=== PATIENT | female | born 1970 | race Caucasian/White ===

== ENCOUNTER 2016-12-23 17:42 | Emergency (ER) | payer BC ==
[2016-12-23 18:06] VITALS: BP 140/84
--- NOTE | 2016-12-23 18:31 | UC ---
Cardiac HPI - HPI Summary HPI Summary: Sharp, stabbing pain right mid chest. STarted last night after a stressful night out with her kids. She has also started an exercise program that involves pectoral curls. Took Motrin, then pain seemed worse this AM. Throughout day pain worsened. Hurts with any movement of right arm, hurts to take a deep breath or cough. No fever, no recent cough, no vomiting. No history of similar pain. Had ETT for chest pains and other concerns in August 2016, normal. She admits to being very anxious, just wants to be sure this is nothing to do with her heart. - History of Current Complaint Chief Complaint: UCChestPain Stated Complaint: CHEST DISCOMFORT Time Seen by Provider: 12/23/16 18:11 Hx Obtained From: Patient Onset/Duration: Gradual Onset, Lasting Days - 1 Timing: Constant Initial Severity: Mild Current Severity: Moderate Chest Pain Location: Right Anterior Character: Sharp/Stabbing Aggravating: Position, Movement, Deep Breaths Alleviating: Rest, Position Associated Signs & Symptoms: Positive: Chest Pain, Anxiety, Recent Stress. Negative: Syncope, Fever, Diaphoresis, Nausea/Vomiting, Palpitations, Cough, Hemoptysis, Back Pain - Risk Factors Pulmonary Embolism Risk Factors: Negative Cardiac Risk Factors: Negative Atrial Fibrillation: Negative TAD Risk Factors: Negative - Allergy/Home Medications Allergies/Adverse Reactions: Allergies Allergy/AdvReac Type Severity Reaction Status Date / Time Penicillins Allergy Rash Verified 12/23/16 18:06 Home Medications: Home Medications Ibuprofen TAB* [Advil TAB*] 200 mg PO Q12H PRN 12/23/16 [History Confirmed 12/23] PMH/Surg Hx/FS Hx/Imm Hx Previously Healthy: Yes Cancer History Of: Denies: Breast Cancer - Surgical History Surgical History: None - Family History Known Family History: Positive: Hypertension - Social History Occupation: Employed Full-time Lives: With Family Alcohol Use: None Substance Use Type: None Smoking Status (MU): Never Smoked Tobacco Review of Systems Constitutional: Negative Skin: Negative Eyes: Negative ENT: Negative Respiratory: Other - pleuritic pain Cardiovascular: Chest Pain - right anterior, hard to localize, not chest wall Gastrointestinal: Negative Genitourinary: Negative Motor: Negative Neurovascular: Negative Musculoskeletal: Negative Neurological: Negative Psychological: Negative All Other Systems Reviewed And Are Negative: Yes Physical Exam Triage Information Reviewed: Yes Appearance: Well-Appearing, No Pain Distress, Well-Nourished Vital Signs: Initial Vital Signs Temp 99.8 F 12/23/16 17:59 Pulse 90 12/23/16 17:59 Resp 20 12/23/16 17:59 BP 140/84 12/23/16 17:59 Pulse Ox 100 12/23/16 17:59 Vital Signs Reviewed: Yes Eye Exam: Normal ENT Exam: Normal Neck exam: Normal Neck: Positive: Supple Respiratory: Positive: Chest non-tender, Lungs clear - pain at end expiration, Normal breath sounds, No respiratory distress, No accessory muscle use Cardiovascular Exam: Normal Abdominal Exam: Normal Musculoskeletal Exam: Normal - no surface tenderness. Doesn't want to move shoulder due to pain Neurological Exam: Normal Psychological Exam: Normal Skin Exam: Normal Diagnostics - Laboratory Diagnostic Studies Completed/Ordered: EKG: NSR, unremarkable. CXR neg - Clinical Impression Provider Diagnoses: pleuritis Discharge - Discharge Plan Condition: Stable Disposition: HOME Patient Education Materials: Chest Wall Pain (ED) Referrals: Marci Deluna MD [Primary Care Provider] - Additional Instructions: Motrin, heat, rest. Take the hydrocodone tonight if you need something stronger for the pain
--- NOTE | 2016-12-23 19:01 | RAD ---
INDICATION: Pleuritic chest pain COMPARISON: None TECHNIQUE: PA and lateral dual-energy views were obtained. FINDINGS: Bones/Soft Tissues: There are no acute bony findings. Cardiomediastinal: The cardiomediastinal silhouette is normal. Lungs: There are no infiltrates. There is no pneumothorax. Pleura: There are no pleural effusions. Other: None IMPRESSION: NO ACTIVE DISEASE.
[2016-12-23] MEDS ORDERED: HYDROcodone/ACETAMIN 5-325 MG* 1 TAB PO ONE (19:42)
== END 2016-12-23 19:56 | disposition home or self-care (01) ==
LOC: UCCORT 17:42
DX: R09.1 Pleurisy (principal); Z88.0 Allergy status to penicillin
CPT/HCPCS: 71020; 93005; 99212; G0463

== ENCOUNTER 2017-06-29 09:04 | Emergency (ER) | payer BC ==
[2017-06-29 09:14] VITALS: BP 140/86
--- NOTE | 2017-06-29 09:33 | UC ---
Abdominal Pain Female HPI - HPI Summary HPI Summary: ONSET OF DIFFUSE ABDOMINAL PAIN AND SPASMS YESTERDAY. HAS A H/O DIVERTICULITIS AND HAS BEEN EATING A LOT OF NUTS OVER THE PAST SEVERAL DAYS. HAD SEVERAL EPISODES OF LOOSE STOOL AND SOME NAUSEA. NO EMESIS. NO FEVER. - History of Current Complaint Chief Complaint: UCAbdominalPain Stated Complaint: ABD PAIN Time Seen by Provider: 06/29/17 09:23 Hx Obtained From: Patient Hx Last Menstrual Period: 06/19/17 Onset/Duration: Sudden Onset, Lasting Hours, Still Present Timing: Constant Severity Initially: Moderate Severity Currently: Moderate Pain Intensity: 5 Pain Scale Used: 0-10 Numeric Location: Diffuse Radiates: No Character: Cramping Aggravating Factor(s): Nothing Alleviating Factor(s): Nothing Associated Signs and Symptoms: Positive: Nausea, Diarrhea Allergies/Adverse Reactions: Allergies Allergy/AdvReac Type Severity Reaction Status Date / Time Penicillins Allergy Rash Verified 06/29/17 09:14 PMH/Surg Hx/FS Hx/Imm Hx GI/ History: Diverticulitis - Surgical History Surgical History: None - Family History Known Family History: Positive: Hypertension - Social History Alcohol Use: None Substance Use Type: None Smoking Status (MU): Never Smoked Tobacco Review of Systems Constitutional: Negative Respiratory: Negative Cardiovascular: Negative Gastrointestinal: Abdominal Pain, Diarrhea, Nausea Genitourinary: Negative All Other Systems Reviewed And Are Negative: Yes Physical Exam Triage Information Reviewed: Yes Appearance: Well-Appearing, No Pain Distress, Well-Nourished Vital Signs: Initial Vital Signs Pulse 106 06/29/17 09:09 Resp 16 06/29/17 09:09 BP 140/86 06/29/17 09:09 Pulse Ox 100 06/29/17 09:09 Vital Signs Reviewed: Yes Eyes: Positive: Conjunctiva Clear ENT: Positive: Hearing grossly normal Neck: Positive: Supple Respiratory Exam: Normal Cardiovascular: Positive: Tachycardia Abdomen Description: Positive: Soft, Other: - DIFFUSELY TENDER - MORE SO EPIGASTRIC AND SUPRAPUBIC/LLQ.. Negative: CVA Tenderness (R), CVA Tenderness (L ), Distended, Guarding Bowel Sounds: Positive: Present Musculoskeletal: Positive: No Edema Neurological: Positive: Alert Psychological: Positive: Age Appropriate Behavior Skin: Negative: rashes Abd Pain Female Course/Dx - Course Course Of Treatment: DISCUSSED TRANSFER TO ER GIVEN DX OF DIVERTICULITIS NOT CERTAIN. PT WOULD LIKE TO TRY TX FOR DIVERTICULITIS OUTPT AND WILL GO TO ER IF SX NOT IMPROVING. - Differential Dx/Diagnosis Provider Diagnoses: PRESUMPTIVE DIVERTICULITIS Discharge - Discharge Plan Condition: Stable Disposition: HOME Prescriptions: Ciprofloxacin TAB* [Cipro 500 MG TAB*] 500 mg PO BID #20 tab Metronidazole [Flagyl 500 MG TAB] 500 mg PO TID #30 tab Patient Education Materials: Diverticulitis (ED), Diverticulitis Diet (ED) Referrals: Marci Deluna MD [Primary Care Provider] - If Needed Additional Instructions: WE ARE TREATING YOU FOR PRESUMPTIVE DIVERTICULITIS. IF YOU ARE NOT FEELING IMPROVED OVER THE NEXT DAY OR 2 GO TO THE ER FOR FURTHER EVALUATION. YOUR BLOOD PRESSURE WAS ELEVATED TODAY. THIS MAY BE DUE TO YOUR ACUTE CONDITION. MONITOR AND FOLLOW-UP WITH YOUR PCP WITHIN 4 WEEKS IF IT HAS NOT RETURNED TO NORMAL.
== END 2017-06-29 09:55 | disposition home or self-care (01) ==
LOC: UCEAST 09:04
DX: R10.84 Generalized abdominal pain (principal); R11.0 Nausea; R19.7 Diarrhea, unspecified; K57.92 Diverticulitis of intestine, part unspecified, without perforation or abscess without bleeding; Z88.0 Allergy status to penicillin
CPT/HCPCS: 99212; G0463

== ENCOUNTER 2017-12-06 13:27 | Emergency (ER) | payer BC ==
--- NOTE | 2017-12-06 13:57 | UC ---
Abdominal Pain Female HPI - HPI Summary HPI Summary: 47 year old female presents with severe right upper quadrant and chest pain. - History of Current Complaint Chief Complaint: UCAbdominalPain Stated Complaint: ABD PAIN Time Seen by Provider: 12/06/17 13:56 Hx Obtained From: Patient Hx Last Menstrual Period: 06/19/17 Onset/Duration: Sudden Onset Severity Initially: Moderate Severity Currently: Moderate Pain Scale Used: 0-10 Numeric - 5 Location: Discrete At: RUQ Character: Aching, Sharp Aggravating Factor(s): Movement Alleviating Factor(s): Nothing Allergies/Adverse Reactions: Allergies Allergy/AdvReac Type Severity Reaction Status Date / Time Penicillins Allergy Rash Verified 12/06/17 13:57 Home Medications: Home Medications NK [No Home Medications Reported] 12/06/17 [History Confirmed 12/06/17] PMH/Surg Hx/FS Hx/Imm Hx Previously Healthy: Yes - Surgical History Surgical History: None - Family History Known Family History: Positive: Hypertension - Social History Alcohol Use: None Substance Use Type: None Smoking Status (MU): Never Smoked Tobacco Review of Systems Constitutional: Negative Skin: Negative Eyes: Negative ENT: Negative Respiratory: Negative Cardiovascular: Negative Gastrointestinal: Abdominal Pain Genitourinary: Negative Motor: Negative Neurovascular: Negative Musculoskeletal: Negative Neurological: Negative Psychological: Negative All Other Systems Reviewed And Are Negative: Yes Physical Exam Triage Information Reviewed: Yes Vital Signs Reviewed: Yes Eye Exam: Normal ENT Exam: Normal Dental Exam: Normal Neck exam: Normal Neck: Positive: 1 Respiratory Exam: Normal Cardiovascular Exam: Normal Abdomen Description: Positive: Other: - ruq pain Musculoskeletal Exam: Normal Neurological Exam: Normal Psychological Exam: Normal Skin Exam: Normal Abd Pain Female Course/Dx - Differential Dx/Diagnosis Provider Diagnoses: ruq pain. chest pain. epigastric pain Discharge - Discharge Plan Condition: Stable Disposition: OTHER Discharge Disposition Comment: patient suggested to go to the er Patient Education Materials: Chest Pain (ED) Referrals: Marci Deluna MD [Primary Care Provider] - Additional Instructions: patient suggested to go to the er.
[2017-12-06 14:29] VITALS: BP 154/101
== END 2017-12-06 14:30 ==
LOC: UCCORT 13:27
DX: R10.11 Right upper quadrant pain (principal); R07.89 Other chest pain; R10.13 Epigastric pain; Z88.0 Allergy status to penicillin
CPT/HCPCS: 93005; 99212; G0463

== ENCOUNTER 2017-12-06 16:02 | Emergency (ER) | payer BC ==
[2017-12-06 18:56] LABS: ABS Basophils 0 10^3/ul (0-0.2); ABS Eosinophils 0 10^3/ul (0-0.6); ABS Lymphocytes 0.7 10^3/ul (1.0-4.8); ABS Monocytes 0.4 10^3/ul (0-0.8); ABS Neutrophils 10.5 10^3/ul (1.5-7.7); ABS Nucleated RBC 0 10^3/ul; Eosinophil % 0.3 % (0-6); Hematocrit 46 % (35-47); Hemoglobin 15.3 g/dl (12.0-16.0); Lymphocyte % 5.7 % (25-47); Mean Corpuscular HGB Conc 34 g/dl (31-36); Mean Corpuscular Hemoglobin 29 pg (27-31); Mean Corpuscular Volume 87 fL (80-97); Mean Platelet Volume 8 um3 (7.4-10.4); Nucleated Red Blood Cells % 0; Platelet Count 190 10^3/ul (150-450); Red Blood Count 5.22 10^6/ul (4.0-5.4); Red Cell Distribution Width 14 % (10.5-15); White Blood Count 11.6 10^3/ul (3.5-10.8)
[2017-12-06 19:08] LABS: EGFR Non-African American 72.7 (>60)
[2017-12-06 19:16] LABS: Urine Appearance Cloudy; Urine Blood 2+ (Negative); Urine Color Yellow; Urine Ketones Negative (Negative); Urine Protein Negative (Negative); Urine Specific Gravity 1.027 (1.010-1.030); Urine Urobilinogen Negative (Negative)
--- NOTE | 2017-12-06 19:28 | RAD ---
HISTORY: Lower abdominal pain COMPARISONS: January 28, 2012 TECHNIQUE: Multiple transverse and longitudinal ultrasound images were obtained of the pelvis using grayscale, color Doppler, and spectral Doppler imaging using the endovaginal transducer. FINDINGS: UTERUS: The uterus measures 10.7 x 5.6 x 6.9 cm. The uterus is normal in shape, size, contour, and echotexture. ENDOMETRIUM: The endometrial stripe is smooth. The endometrium measures 1.3 cm in thickness. CUL-DE-SAC: There is no free fluid within the cul-de-sac. RIGHT OVARY: The right ovary measures 6.9 x 2.7 x 2.9 cm. There are multiple simple cysts measuring up to 3.5 cm in size. Normal arterial and venous waveforms are identifiable within the ovary on spectral Doppler imaging. LEFT OVARY: The left ovary measures 2.9 x 2.9 x 2.1 cm. Several small follicles are noted. An involuting follicular cyst is noted. Normal arterial and venous waveforms are identifiable within the ovary on spectral Doppler imaging. BLADDER: The bladder is not well visualized. OTHER: None IMPRESSION: 1. OVARIAN CYSTS. 2. THE ENDOMETRIAL STRIPE MEASURES 1.3 CM IN THICKNESS. 3. NO SONOGRAPHIC FEATURES OF TORSION. PLEASE NOTE THAT PARTIAL OR INTERMITTENT TORSION MAY BE SONOGRAPHICALLY NORMAL.
--- NOTE | 2017-12-06 19:56 | ED ---
Maia Green Gabriel, scribed for Tomi Reyes MD on 12/06/17 at 1748 . HPI Chest Pain - HPI Summary HPI Summary: This patient is a 47 year old F presenting to [facility] accompanied by her sister in law with a chief complaint of suprapubic pain since 10/29/17. The patient rates the pain 6/10 in severity and radiating into her back and up into her chest. Patient reports CP, anxiety, ABD bloating, and vomiting. Patient denies dysuria, vaginal bleeding, vaginal discharge, and nausea. She was seen at PCP several weeks ago and they sent her to [facility], both saw a small amount blood in her urine. She has a vaginal US on 12/23/17 but states no knowing what is wrong with her is making her anxious. LNMP was on 11/19/17 and before that is was 11/03/17. - History of Current Complaint Chief Complaint: EDGeneral Hx Obtained From: Patient Hx Last Menstrual Period: 06/19/17 Onset/Duration: Still Present Timing: Constant Initial Severity: Moderate Current Severity: Moderate Pain Intensity: 6 Pain Scale Used: 0-10 Numeric Chest Pain Location: Diffuse Chest Pain Radiates: Yes Chest Pain Radiates To:: Back, Other - ABD Associated Signs and Symptoms: Positive: Negative - dysuria, vaginal bleeding, vaginal discharge, and nausea, Other: - CP, anxiety, ABD bloating, and vomiting - Allergy/Home Medications Allergies/Adverse Reactions: Allergies Allergy/AdvReac Type Severity Reaction Status Date / Time Penicillins Allergy Rash Verified 12/06/17 13:57 PMH/Surg Hx/FS Hx/Imm Hx Endocrine/Hematology History: Denies: Hx Diabetes Cardiovascular History: Denies: Hx Congestive Heart Failure, Hx Deep Vein Thrombosis, Hx Hypertension , Hx Myocardial Infarction, Hx Pacemaker/ICD GI History: Reports: Hx Diverticulosis Psychiatric History: Reports: Hx Anxiety - Surgical History Surgery Procedure, Year, and Place: April 2017 Colonoscopy Infectious Disease History: No Infectious Disease History: Denies: Traveled Outside the [place] in Last 30 Days - Family History Known Family History: Positive: Cardiac Disease, Hypertension - Social History Occupation: Employed Full-time Alcohol Use: Occasionally Hx Substance Use: No Substance Use Type: Reports: None Hx Tobacco Use: No Smoking Status (MU): Never Smoked Tobacco Review of Systems Positive: Chest Pain Positive: Abdominal Pain, Vomiting, Other - ABD bloating . Negative: Nausea Genitourinary: Negative - vaginal bleeding/ discharge Negative: dysuria Positive: Anxious All Other Systems Reviewed And Are Negative: Yes Physical Exam - Summary Physical Exam Summary: Appearance: Well-appearing, Well-nourished, slightly anxious appearing Skin: Warm, dry Eyes: Normal, EOMI, PERRL ENT: moist mucuous membranes Neck: Supple, nontender Respiratory: diminished breath sounds b/l Cardiovascular: normal s1s2 few ectopic beats, no murmurs appreciated Abdomen: Soft, nontender, no giuliano or guarding Musculoskeletal: Normal, Strength/ROM Intact Neurological: Normal, A&Ox3, cranial nerves 2-12 intact Vital Signs On Initial Exam: Initial Vitals Temp Pulse Resp BP Pulse Ox 99.3 F 133 18 167/116 96 12/06/17 16:12 12/06/17 16:12 12/06/17 16:12 12/06/17 16:12 12/06/17 16:12 Diagnostics - Vital Signs Vital Signs Temp Pulse Resp BP Pulse Ox 12/06/17 16:12 99.3 F 133 18 167/116 96 - Laboratory Lab Results: Lab Results 12/06/17 12/06/17 12/06/17 Range/Units 18:33 18:40 18:40 WBC 11.6 H (3.5-10.8) 10^3/ul RBC 5.22 (4.0-5.4) 10^6/ul Hgb 15.3 (12.0-16.0) g/dl Hct 46 (35-47) % MCV 87 (80-97) fL MCH 29 (27-31) pg MCHC 34 (31-36) g/dl RDW 14 (10.5-15) % Plt Count 190 (150-450) 10^3/ul MPV 8 (7.4-10.4) um3 Neut % (Auto) 90.7 H (38-83) % Lymph % (Auto) 5.7 L (25-47) % Ashley % (Auto) 3.2 (1-9) % Eos % (Auto) 0.3 (0-6) % Baso % (Auto) 0.1 (0-2) % Absolute Neuts (auto) 10.5 H (1.5-7.7) 10^3/ul Absolute Lymphs (auto) 0.7 L (1.0-4.8) 10^3/ul Absolute Monos (auto) 0.4 (0-0.8) 10^3/ul Absolute Eos (auto) 0 (0-0.6) 10^3/ul Absolute Basos (auto) 0 (0-0.2) 10^3/ul Absolute Nucleated RBC 0 10^3/ul Nucleated RBC % 0 Sodium 133 (133-145) mmol/L Potassium 3.8 (3.5-5.0) mmol/L Chloride 102 (101-111) mmol/L Carbon Dioxide 25 (22-32) mmol/L Anion Gap 6 (2-11) mmol/L BUN 16 (6-24) mg/dL Creatinine 0.84 (0.51-0.95) mg/dL Est GFR ( Amer) 93.5 (>60) Est GFR (Non-Af Amer) 72.7 (>60) BUN/Creatinine Ratio 19.0 (8-20) Glucose 105 H (70-100) mg/dL Lactic Acid (0.5-2.0) mmol/L Calcium 8.9 (8.6-10.3) mg/dL Magnesium 1.9 (1.9-2.7) mg/dL Total Bilirubin 0.80 (0.2-1.0) mg/dL AST 15 (13-39) U/L ALT 17 (7-52) U/L Alkaline Phosphatase 89 (34-104) U/L Troponin I 0.00 (<0.04) ng/mL Total Protein 7.4 (6.4-8.9) g/dL Albumin 3.9 (3.2-5.2) g/dL Globulin 3.5 (2-4) g/dL Albumin/Globulin Ratio 1.1 (1-3) Lipase < 10 L (11.0-82.0) U/L Beta HCG, Quant < 0.60 mIU/mL Urine Color Yellow Urine Appearance Cloudy Urine pH 5.0 (5-9) Ur Specific [place] 1.027 (1.010-1.030) Urine Protein Negative (Negative) Urine Ketones Negative (Negative) Urine Blood 2+ H (Negative) Urine Nitrate Negative (Negative) Urine Bilirubin Negative (Negative) Urine Urobilinogen Negative (Negative) Ur Leukocyte Esterase 2+ H (Negative) Urine WBC (Auto) Trace(0-5/hpf) (Absent) Urine RBC (Auto) 1+(3-5/hpf) H (Absent) Ur Squamous Epith Cells Present H (Absent) Urine Bacteria 1+ H (Absent) Urine Glucose Negative (Negative) 12/06/17 Range/Units 18:40 WBC (3.5-10.8) 10^3/ul RBC (4.0-5.4) 10^6/ul Hgb (12.0-16.0) g/dl Hct (35-47) % MCV (80-97) fL MCH (27-31) pg MCHC (31-36) g/dl RDW (10.5-15) % Plt Count (150-450) 10^3/ul MPV (7.4-10.4) um3 Neut % (Auto) (38-83) % Lymph % (Auto) (25-47) % Ashley % (Auto) (1-9) % Eos % (Auto) (0-6) % Baso % (Auto) (0-2) % Absolute Neuts (auto) (1.5-7.7) 10^3/ul Absolute Lymphs (auto) (1.0-4.8) 10^3/ul Absolute Monos (auto) (0-0.8) 10^3/ul Absolute Eos (auto) (0-0.6) 10^3/ul Absolute Basos (auto) (0-0.2) 10^3/ul Absolute Nucleated RBC 10^3/ul Nucleated RBC % Sodium (133-145) mmol/L Potassium (3.5-5.0) mmol/L Chloride (101-111) mmol/L Carbon Dioxide (22-32) mmol/L Anion Gap (2-11) mmol/L BUN (6-24) mg/dL Creatinine (0.51-0.95) mg/dL Est GFR ( Amer) (>60) Est GFR (Non-Af Amer) (>60) BUN/Creatinine Ratio (8-20) Glucose (70-100) mg/dL Lactic Acid 0.9 (0.5-2.0) mmol/L Calcium (8.6-10.3) mg/dL Magnesium (1.9-2.7) mg/dL Total Bilirubin (0.2-1.0) mg/dL AST (13-39) U/L ALT (7-52) U/L Alkaline Phosphatase (34-104) U/L Troponin I (<0.04) ng/mL Total Protein (6.4-8.9) g/dL Albumin (3.2-5.2) g/dL Globulin (2-4) g/dL Albumin/Globulin Ratio (1-3) Lipase (11.0-82.0) U/L Beta HCG, Quant mIU/mL Urine Color Urine Appearance Urine pH (5-9) Ur Specific [place] (1.010-1.030) Urine Protein (Negative) Urine Ketones (Negative) Urine Blood (Negative) Urine Nitrate (Negative) Urine Bilirubin (Negative) Urine Urobilinogen (Negative) Ur Leukocyte Esterase (Negative) Urine WBC (Auto) (Absent) Urine RBC (Auto) (Absent) Ur Squamous Epith Cells (Absent) Urine Bacteria (Absent) Urine Glucose (Negative) Result Diagrams: 12/06/17 18:40 12/06/17 18:40 Lab Statement: Any lab studies that have been ordered have been reviewed, and results considered in the medical decision making process. Chest Pain Course/Dx - Course Assessment/Plan: Pt says she does not requre any pain medications at this time. Atypical crampy lower abdominal pain with negative ultrasound exam. Denies any dysuria, pending abdominal ct. - Diagnoses Provider Diagnoses: Abdominal pain Discharge - Discharge Plan Condition: Improved Disposition: OTHER Discharge Disposition Comment: pt care signed out to PM attending Dr. Teixeira Patient Education Materials: Abdominal Pain (ED) Referrals: Marci Deluna MD [Primary Care Provider] - Evelia Ramirez MD [Medical Doctor] - Additional Instructions: PLEASE MAKE AN APPOINTMENT FIRST THING IN THE MORNING TO BE SEEN BY A INDUSTRIAL SERVICE TECHNICIAN WITHIN 1-2 WEEKS PLEASE RETURN IMMEDIATELY TO THE ER IF YOU HAVE ANY WORSENING OR CONCERNING SYMPTOMS PLEASE MAKE AN APPOINTMENT TO BE SEEN BY YOUR PRIMARY CARE DOCTOR WITHIN 1 WEEK The documentation as recorded by the Maia dee Gabriel accurately reflects the service I personally performed and the decisions made by me, Tomi Reyes MD.
[2017-12-06] MEDS ORDERED: Iohexol 300* (CONTRAST) 10 ML SDV IV ONE (20:34)
--- NOTE | 2017-12-06 21:26 | RAD ---
CLINICAL HISTORY: Lower abdominal pain COMPARISON: March 04, 2012 TECHNIQUE: Multiple contiguous axial CT scans were obtained of the abdomen and pelvis after the administration of intravenous contrast. Coronal and sagittal multiplanar reformations are submitted for review. Oral contrast was administered. Delayed images were obtained through the abdomen and pelvis. FINDINGS: LUNG BASES: The lung bases are clear. LIVER: The liver is normal in shape, size, contour, and attenuation. BILE DUCTS: There is no intrahepatic or extrahepatic biliary dilatation. GALLBLADDER: Multiple gallstones are noted. There is no pericholecystic inflammatory change. PANCREAS: The pancreas is normal, without mass or ductal dilatation. SPLEEN: Normal in size and appearance. UPPER GI TRACT: Evaluation of the gastrointestinal tract is limited by incomplete gastric distention. The upper GI tract is unremarkable. SMALL BOWEL AND MESENTERY: The small bowel is normal in contour, course, and caliber. There is no obstruction or dilatation. COLON: There is scattered diverticula of the distal colon without pericolonic inflammatory change. There is a tubular, vermiform, hollow viscus that is blind ending, and originates from the cecum, consistent with a normal appendix. There is no periappendiceal inflammatory change. This is best seen on axial image 60. ADRENALS: Normal bilaterally. KIDNEYS: The kidneys are normal in shape, size, contour, and axis. There is no hydronephrosis or nephrolithiasis. BLADDER: The bladder is smooth in contour. PELVIC ORGANS: There are simple cysts of the right ovary measuring up to 2.7 cm in size. The pelvic organs are otherwise unremarkable. AORTA: The aorta is normal. IVC: Unremarkable LYMPH NODES: There is no lymphadenopathy by size criteria. ABDOMINAL WALL: There is no evidence for abdominal wall hernia. BONES AND SOFT TISSUES: Unremarkable OTHER: None IMPRESSION: 1. CHOLELITHIASIS. 2. SCATTERED DIVERTICULA OF THE DISTAL COLON WITHOUT PERICOLONIC INFLAMMATORY CHANGE. 3. SIMPLE RIGHT OVARIAN CYSTS.
--- NOTE | 2017-12-06 22:30 | ED ---
Nitesh Green Natalie, tseringibed for Emiliano Teixeira MD on 12/06/17 at 2142 . Progress - Results/Orders Results/Orders: Transvaginal US: 1. Ovarian cysts. 2. The endometrial stripe measures 1.3 cm in thickness. 3. No sonographic features of torsion. Please note that partial or intermittent torsion. May be sonographically normal. ED physician has reviewed this report. CT Abdomen/Pelvis: 1. Cholelithiasis. 2. Scattered diverticula of the distal colon without pericolonic inflammatory change. 3. Simple right ovarian cysts. ED physician has reviewed this report. Course/Dx - Course Course Of Treatment: DISCUSSED RESULTS WITH PATIENT. F/U PMD, UROLOGY AND GI; RETURN IF WORSE. - Diagnoses Provider Diagnoses: Abdominal pain, Hematuria The documentation as recorded by the Nitehs dee Natalie accurately reflects the service I personally performed and the decisions made by , Emiliano Teixeira MD.
[2017-12-06 22:32] VITALS: BP 133/79
== END 2017-12-06 22:31 | disposition home or self-care (01) ==
LOC: ED 16:02
DX: R10.9 Unspecified abdominal pain (principal); R31.9 Hematuria, unspecified
CPT/HCPCS: 36415; 74177; 76830; 80053; 81003; 81015; 83605; 83690; 83735; 84484; 84702; 85025; 87086; 93005; 99282; Q9967

== ENCOUNTER 2018-01-05 07:35 | Emergency (ER) | payer BC ==
[2018-01-05 08:34] VITALS: BP 126/77
--- NOTE | 2018-01-05 08:49 | UC ---
Respiratory Complaint HPI - HPI Summary HPI Summary: Congestion, cough, loss of voice for a few days. No fever. No myalgias. - History of Current Complaint Chief Complaint: UCRespiratory Stated Complaint: COUGH Time Seen by Provider: 01/05/18 08:14 Hx Obtained From: Patient Hx Last Menstrual Period: 12/17/17 Onset/Duration: Gradual Onset, Lasting Days Timing: Constant Severity Initially: Moderate Severity Currently: Moderate Pain Intensity: 0 Character: Cough: Productive Aggravating Factors: Deep Breaths, Recumbent Position Alleviating Factors: Upright Position, Spontaneous Resolution Associated Signs And Symptoms: Positive: URI, Nasal Congestion, Hoarseness. Negative: Dyspnea, Fever, Chills, Pleuritic Chest Pain, Hemoptysis, Dizziness, Calf Pain, Calf Swelling, Edema, Sinus Discomfort - Allergies/Home Medications Allergies/Adverse Reactions: Allergies Allergy/AdvReac Type Severity Reaction Status Date / Time Penicillins Allergy Rash Verified 01/05/18 08:27 PMH/Surg Hx/FS Hx/Imm Hx Previously Healthy: Yes - Surgical History Surgical History: None Surgery Procedure, Year, and Place: April 2017 Colonoscopy - Family History Known Family History: Positive: Cardiac Disease, Hypertension - Social History Alcohol Use: Occasionally Substance Use Type: None Smoking Status (MU): Never Smoked Tobacco - Immunization History Most Recent Influenza Vaccination: 2017 Review of Systems ENT: Sinus Congestion Respiratory: Cough All Other Systems Reviewed And Are Negative: Yes Physical Exam Triage Information Reviewed: Yes Appearance: Well-Appearing, No Pain Distress, Well-Nourished Vital Signs: Initial Vital Signs Temp 98.7 F 01/05/18 08:28 Pulse 84 01/05/18 08:28 Resp 18 01/05/18 08:28 BP 126/77 01/05/18 08:28 Pulse Ox 99 01/05/18 08:28 Vital Signs Reviewed: Yes Eyes: Positive: Conjunctiva Clear ENT: Positive: Pharynx normal, Pharyngeal erythema, Nasal congestion, TMs normal , Hoarse voice, Uvula midline. Negative: Nasal drainage, Tonsillar swelling, Tonsillar exudate, Trismus, Muffled voice, Sinus tenderness Neck: Positive: Supple, Nontender, No Lymphadenopathy Respiratory: Positive: Lungs clear, Normal breath sounds, No respiratory distress, No accessory muscle use. Negative: Respiratory distress, Decreased breath sounds, Accessory muscle use, Crackles, Rhonchi, Stridor, Wheezing Cardiovascular: Positive: No Murmur Abdomen Description: Positive: No Organomegaly, Soft. Negative: Distended, Guarding Musculoskeletal: Positive: Strength Intact, ROM Intact, No Edema Neurological: Positive: Alert, Muscle Tone Normal. Negative: Fatigued Psychological: Positive: Age Appropriate Behavior Skin: Negative: rashes UC Diagnostic Evaluation - Laboratory O2 Sat by Pulse Oximetry: 99 Respiratory Course/Dx - Course Course Of Treatment: Viral uri. Supportive care described in detail. - Differential Dx/Diagnosis Provider Diagnoses: uri Discharge - Discharge Plan Condition: Good Disposition: HOME Patient Education Materials: Upper Respiratory Infection (ED) Referrals: Marci Deluna MD [Primary Care Provider] -
== END 2018-01-05 09:25 | disposition home or self-care (01) ==
LOC: UCCORT 07:35
DX: J06.9 Acute upper respiratory infection, unspecified (principal); Z88.0 Allergy status to penicillin
CPT/HCPCS: 99211; G0463

== ENCOUNTER 2018-02-08 19:29 | Emergency (ER) | payer BC ==
[2018-02-08 20:21] VITALS: BP 132/84
[2018-02-08] MEDS ORDERED: Ibuprofen TAB* 600 MG PO ONE (20:39)
--- NOTE | 2018-02-08 20:44 | UC ---
Neck Pain HPI - HPI Summary HPI Summary: Pt presents with left lateral, upper neck pain. Pt states 3 weeks ago was walking outside and slipped and his posterior left shoulder and neck. No LOC. No blood HEENT. Pt states continues to feel pain and tightness in muscle and wanted to get check for concussion. No olivas, vision changes. No muscle weakness, paresthesia. Pt has taken Motrin intermittently with relief. Pt states feels better with gentle rubbing and shower. No nausea or difficulty with balance Pt's medications reviewed this visit - History of Current Complaint Chief Complaint: UCHeadInjury Stated Complaint: NECK/BACK PAIN/INJURY Time Seen by Provider: 02/08/18 20:22 Hx Obtained From: Patient Hx Last Menstrual Period: 01/19/18 Onset/Duration Of Injury/Symptoms: Weeks Mechanism Of Injury: Blunt Trauma Timing: Constant Onset/Duration: Lasting Weeks Severity: Mild Pain Intensity: 6 Pain Scale Used: 0-10 Numeric Location: Discrete At: - left posterior upper shoulder Character: Aching, Spasmotic Alleviating Factors: Position, Heat, OTC Meds Associated Signs & Symptoms: Positive: Negative - Allergies/Home Medications Allergies/Adverse Reactions: Allergies Allergy/AdvReac Type Severity Reaction Status Date / Time Penicillins Allergy Rash Verified 02/08/18 20:17 PMH/Surg Hx/FS Hx/Imm Hx Previously Healthy: Yes - Surgical History Surgical History: None Surgery Procedure, Year, and Place: April 2017 Colonoscopy - Family History Known Family History: Positive: Cardiac Disease, Hypertension - Social History Occupation: Employed Full-time Lives: With Family Alcohol Use: Occasionally Substance Use Type: None Smoking Status (MU): Never Smoked Tobacco - Immunization History Most Recent Influenza Vaccination: 2016 Review Of Systems Constitutional: Positive: Negative Skin: Positive: Negative Musculoskeletal: Positive: Other: Neurological: Positive: Negative All Other Systems Reviewed And Are Negative: Yes Physical Exam Triage Information Reviewed: Yes Appearance: Well-Appearing, No Pain Distress, Well-Nourished Vital Signs: Initial Vital Signs Temp 98.1 F 02/08/18 20:15 Pulse 92 02/08/18 20:15 Resp 16 02/08/18 20:15 BP 132/84 02/08/18 20:15 Pulse Ox 100 02/08/18 20:15 Vital Signs Reviewed: Yes Eye Exam: Normal Eyes: Positive: Conjunctiva Clear ENT Exam: Normal ENT: Positive: Normal ENT inspection, Hearing grossly normal, Pharynx normal Dental Exam: Normal Neck exam: Normal Neck: Positive: Supple. Negative: Nontender - see MS Respiratory Exam: Normal Respiratory: Positive: Chest non-tender, Lungs clear, Normal breath sounds, No respiratory distress Cardiovascular Exam: Normal Cardiovascular: Positive: RRR, No Murmur Musculoskeletal: Positive: Other: - No pain c/t/l/s No crepitus + TTP left paraspinal, trapezius discomfort with direct palp + flex/ext neck with mild discomfort left side neck + lateral rotation, shouler/ear b/l with mild stretching left trapezius full AROM upper ext against resistance Neurological: Positive: Other: - + thumb up, a ok, finger spread, finger cross + g ross sensation throughout Psychological Exam: Normal Skin Exam: Normal Diagnostics - Radiology No standard instances Radiology Interpretation Completed By: Radiologist - IMPRESSION: 1. STRAIGHTENING OF THE CERVICAL SPINE, NO EVIDENCE FOR FRACTURE OR SUBLUXATION. 2. MILD TO MODERATE CERVICAL SPONDYLOSIS. <Electronically signed by Angel Pierson MD in [place]> [id number] Dictated By: Angel Pierson MD Dictated Date/Time: 02/08/182111 Transcribed Date/Time: 02/08/182109 Copy to: Re-Evaluation - Re-Evaluation First Eval Change: Unchanged - reviewed imaging with pt motrin/apap heat stretch pt has massage tomorrow -recommend before and after treatement pt comfotable and in agreement with plan Neck Pain Course/Dx - Course Course Of Treatment: Pt with left sided neck pain s/p fall 3 weeks ago. No LOC. Pt with discomfort and palpable spasm left trapezius. suspect all muscular no concerning finding son exam. will check plain film. motrin/apap. heat. stretch - Differential Dx/Diagnosis Provider Diagnoses: left cervical strain Discharge - Discharge Plan Condition: Stable Disposition: HOME Patient Education Materials: Muscle Strain (ED) Referrals: Marci Deluna MD [Primary Care Provider] - Additional Instructions: - alternate ibuprofen (Advil, Motrin) 600mg and Tylenol 1000mg every 3 hours for pain. Take with food. Do NOT take for more than 4-5 days - apply heat to your sore muscle. Once your muscle is warm, slow gentle stretching exercises are important. You should repeat this 2-3 times a day - gentle massage is okay for muscle tightness - As discussed, the doctor that evaluated you is not concerned you have suffered a concussion. If you develop uncontrolled headaches, vision changes, dizziness, vomiting or balance difficulty you should be re-evaluated. This is extremely unlikely given the mechanism of you injury and the duration from your injury - Contact your doctor or return with any questions or concerns
--- NOTE | 2018-02-08 21:16 | RAD ---
INDICATION: Left paraspinal neck pain status post injury. COMPARISON: There are no prior studies available for comparison. TECHNIQUE: 3 views of the cervical spine were obtained including lateral, AP and open-mouth odontoid views. FINDINGS: There is straightening of the cervical spine with loss of the normal cervical lordosis. No prevertebral soft tissue swelling or fracture is seen. There is mild to moderate disc space narrowing and uncinate process spurring present at the C4-C5, C5-C6 and C6-C7 levels. IMPRESSION: 1. STRAIGHTENING OF THE CERVICAL SPINE, NO EVIDENCE FOR FRACTURE OR SUBLUXATION. 2. MILD TO MODERATE CERVICAL SPONDYLOSIS.
== END 2018-02-08 21:24 | disposition home or self-care (01) ==
LOC: UCCORT 19:29
DX: S16.1XXA Strain of muscle, fascia and tendon at neck level, initial encounter (principal); W00.0XXA Fall on same level due to ice and snow, initial encounter; Y93.01 Activity, walking, marching and hiking; Y92.9 Unspecified place or not applicable; M47.812 Spondylosis without myelopathy or radiculopathy, cervical region; Z88.0 Allergy status to penicillin
CPT/HCPCS: 72040; 99212; A9270-GY; G0463

== ENCOUNTER 2018-06-27 16:10 | Emergency (ER) | payer BC ==
--- OUTSIDE RECORDS SUMMARY | 2018-06-27 16:49 | XMS REPORT ---
:1970 External Reference #:[id number] Author Organization [facility] Address [address] [place] [address] Phone [phone] Care Team Providers Name Role Phone Marci Deluna MD Primary Care Physician Unavailable Payers Type Date Identification Numbers Payment Provider Subscriber Commercial Effective: Policy Number: BS Chilango Nahomi 2014 [id number] ColeRadhaJalen PayID: [id number] [address] [address] [place] [address] Medigap Part B Effective: Policy Number: BS Chilango Varma 2011 [id number] Expires: 2012 PayID: [id number] [address] [address] [place] [address] Problems Date Description Provider Status Onset: 04/26/2012 FH: Cardiovascular disease Swetha Mtz M.D. 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 2018 x 2 weeks Omeprazole 10/08/ Hx Capsules DR 20mg 30cap 1 by mouth K21.9 Dominick 2016 - s once daily Kyle, [employer]AR[employer] EDUC[employer] TE[employer]ER 2017 No Active 05/09/ Hx Unknown Medications 2014 - 2016 Tamiflu 01/11/ Hx Capsules 75mg 10cap 1 tab by Marci 2014 - s mouth once Cotton, 01/22/ daily for M.D. 2014 10 days No Active 01/27/ Hx Unknown Medications 2012 - 2012 Doxycycline 01/27/ Hx Tablets DR 100mg 14tab 100 mg 461.1 Namita Hyclate 2012 - s orally Charanjit, 02/03/ twice daily N.P. 2012 x 7 days Nasal Saline 01/27/ Hx Solution 0.65% 1ml 2 sprays in 461.1 Namita 2012 - each Charanjit, 01/02/ nostril 5 N.P. 2014 times a day Nasonex 01/27/ Hx Suspension 50mcg/Act 17g 2 sprays in 461.1 Namita 2012 - each Charanjit, 01/02/ nostril N.P. 2014 once daily Tessalon 01/27/ Hx Capsules 100mg 60cap 1 tab po 461.1 Namita Mariano 2012 - s tid prn Charanjit, 01/02/ N.P. 2014 Ibuprofen 01/27/ Hx Tablets 400mg 100ta 400 mg po 462 Namita 2013 - bs q4-6h; max Charanjit, 05/09/ 2400 mg/day N.P. 2014 Zithromax 10/27/ Hx Tablets 250mg 1Pack as per Timmy Gunderson-Leo 2012 - directions Nancy, 01/27/ M.D. 2012 Codeine 10/27/ Hx Liquid 300-10mg/ 4oz 10cc q 4 Timmy Scott/Guai 2012 - 5ML hrs prn Nancy marysein 01/27/ cough M.D. 2012 Lexapro 08/08/ Hx Tablets 10mg 60tab 1 tablet 300.00 Swetha 2011 - s daily for 1 Mtz, 10/27/ week, then M.D. 2011 2 tablets daily Citracal / Hx Tablets 315-250mg 2 tablet Unknown Maximum 0000 - -Unit daily 2012 Align / Hx 4mg po qd Unknown Probiotic 0000 - 2012 Probiotic / Hx Capsules 30cap once a day Unknown Acidophilus 0000 - s prn 2014 Immunizations CPT Code Status Date Vaccine Lot # [id number] Given 08/26/2016 Flu Vaccine NOS [id number] Given 09/06/2013 Flu Vaccine Split Virus Preservative Free For [id number] Indiv [id number] Older [id number] Given 04/26/2012 Tdap - Tetanus/Diptheria/Acellular Pertussis [id number] Vital Signs Date Vital Result Comment 06/08/2018 Height 66 inches 5'6" Weight 255.00 lb Heart Rate 98 /min BP Systolic 126 mmHg BP Diastolic 80 mmHg Body Temperature 97.8 F O2 % BldC Oximetry 97 % BMI (Body Mass Index) 41.2 kg/m2 04/22/2018 Weight 254.00 lb Heart Rate 82 /min BP Systolic Sitting 138 mmHg BP Diastolic Sitting 86 mmHg O2 % BldC Oximetry 97 % 02/28/2018 Weight 262.50 lb Heart Rate 103 /min BP Systolic Standing 142 mmHg BP Diastolic Standing 82 mmHg Body Temperature 99.1 F O2 % BldC Oximetry 97 % 02/18/2018 Weight 253.00 lb Heart Rate 105 /min BP Systolic Sitting 138 mmHg BP Diastolic Sitting 88 mmHg Pain Level 4 O2 % BldC Oximetry 97 % 01/06/2018 Weight 252.00 lb Heart Rate 87 /min BP Systolic Sitting 148 mmHg BP Diastolic Sitting 90 mmHg Body Temperature 98.9 F O2 % BldC Oximetry 98 % 11/16/2017 Height 66 inches 5'6" Weight 252.00 lb Heart Rate 78 /min BP Systolic 124 mmHg BP Diastolic 74 mmHg O2 % BldC Oximetry 98 % BMI (Body Mass Index) 40.7 kg/m2 10/08/2017 Heart Rate 76 /min BP Systolic Sitting 122 mmHg BP Diastolic Sitting 86 mmHg Body Temperature 97.5 F O2 % BldC Oximetry 98 % 09/06/2017 Height 66 inches 5'6" Weight 252.00 lb Heart Rate 90 /min BP Systolic 120 mmHg BP Diastolic 72 mmHg Body Temperature 98.3 F O2 % BldC Oximetry 98 % BMI (Body Mass Index) 40.7 kg/m2 06/29/2017 Weight 254.00 lb Heart Rate 109 /min BP Systolic 130 mmHg BP Diastolic 76 mmHg Body Temperature 100.0 F O2 % BldC Oximetry 98 % 01/19/2017 Weight 254.00 lb with shoes Heart Rate 88 /min BP Systolic 124 mmHg BP Diastolic 80 mmHg Body Temperature 97.6 F O2 % BldC Oximetry 99 % 11/26/2016 Weight 251.00 lb Heart Rate 87 /min BP Systolic Sitting 126 mmHg L arm BP Diastolic Sitting 86 mmHg L arm 07/27/2016 Weight 258.00 lb with shies Heart Rate 83 /min BP Systolic Sitting 122 mmHg BP Diastolic Sitting 90 mmHg Body Temperature 97.2 F O2 % BldC Oximetry 98 % Ra 03/26/2016 Height 66 inches 5'6" Weight 253.00 lb Heart Rate 88 /min BP Systolic Sitting 130 mmHg BP Diastolic Sitting 84 mmHg Respiratory Rate 15 /min Body Temperature 98.5 F O2 % BldC Oximetry 98 % BMI (Body Mass Index) 40.8 kg/m2 02/21/2016 Height 66 inches 5'6" Weight 248.00 lb Heart Rate 76 /min BP Systolic Sitting 124 mmHg BP Diastolic Sitting 76 mmHg Body Temperature 98.2 F O2 % BldC Oximetry 98 % BMI (Body Mass Index) 40.0 kg/m2 07/22/2015 Height 66 inches 5'6" Weight 245.25 lb Heart Rate 83 /min BP Systolic Sitting 138 mmHg BP Diastolic Sitting 70 mmHg Body Temperature 98.2 F O2 % BldC Oximetry 98 % BMI (Body Mass Index) 39.6 kg/m2 05/09/2015 Height 66 inches 5'6" Weight 236.00 lb Heart Rate 85 /min BP Systolic 112 mmHg BP Diastolic 73 mmHg Body Temperature 98.8 F BMI (Body Mass Index) 38.1 kg/m2 05/02/2014 Height 66 inches 5'6" Weight 227.00 lb Heart Rate 97 /min BP Systolic Sitting 110 mmHg BP Diastolic Sitting 76 mmHg Body Temperature 99.0 F BMI (Body Mass Index) 36.6 kg/m2 01/02/2014 Weight 230.75 lb Heart Rate 82 /min BP Systolic Sitting 130 mmHg BP Diastolic Sitting 80 mmHg Body Temperature 98.1 F O2 % BldC Oximetry 98 % 09/06/2013 Weight 231.00 lb Heart Rate 82 /min BP Systolic Sitting 124 mmHg BP Diastolic Sitting 76 mmHg 06/28/2013 Weight 223.00 lb Heart Rate 80 /min BP Systolic Sitting 138 mmHg BP Diastolic Sitting 76 mmHg 04/21/2013 Weight 219.00 lb Heart Rate 82 /min BP Systolic Sitting 130 mmHg BP Diastolic Sitting 80 mmHg 03/29/2013 Weight 216.00 lb Heart Rate 84 /min BP Systolic Sitting 126 mmHg BP Diastolic Sitting 82 mmHg Body Temperature 97.8 F 01/27/2013 Height 65.75 inches 5'5.75" Weight 222.00 lb Heart Rate 86 /min BP Systolic Sitting 146 mmHg BP Diastolic Sitting 80 mmHg Body Temperature 98.9 F O2 % BldC Oximetry 97 % BMI (Body Mass Index) 36.1 kg/m2 10/27/2012 Height 65.75 inches 5'5.75" Weight 219.00 lb Heart Rate 85 /min BP Systolic Sitting 126 mmHg BP Diastolic Sitting 100 mmHg O2 % BldC Oximetry 99 % BMI (Body Mass Index) 35.6 kg/m2 08/26/2012 Height 65.75 inches 5'5.75" Weight 222.00 lb Heart Rate 78 /min BP Systolic Sitting 124 mmHg BP Diastolic Sitting 74 mmHg BMI (Body Mass Index) 36.1 kg/m2 08/08/2012 Height 65.75 inches 5'5.75" Weight 221.50 lb Heart Rate 80 /min BP Systolic Sitting 138 mmHg BP Diastolic Sitting 80 mmHg BMI (Body Mass Index) 36.0 kg/m2 07/29/2012 Height 65.75 inches 5'5.75" Weight 219.00 lb Heart Rate 74 /min BP Systolic Sitting 124 mmHg BP Diastolic Sitting 72 mmHg Body Temperature 98.6 F BMI (Body Mass Index) 35.6 kg/m2 07/15/2012 Height 65.75 inches 5'5.75" Weight 221.00 lb Heart Rate 76 /min BP Systolic Sitting 124 mmHg BP Diastolic Sitting 76 mmHg BMI (Body Mass Index) 35.9 kg/m2 04/26/2012 Height 65.75 inches 5'5.75" Weight 211.00 lb Heart Rate 76 /min BP Systolic Sitting 124 mmHg BP Diastolic Sitting 72 mmHg BMI (Body Mass Index) 34.3 kg/m2 Results Test Date Test Result H/L Range Note Urine Culture And 12/06/2017 Urine Culture SEE RESULT BELOW 1 Sensitivities Urinalysis Profile 12/06/2017 Urine Color Yellow Urine Appearance Cloudy Urine Specific [place] 1.027 1.010-1.030 Urine pH 5.0 5-9 Urine Urobilinogen Negative Negative Urine Ketones Negative Negative Urine Protein Negative Negative Urine Leukocytes 2+ Negative Urine Blood 2+ Negative Urine Nitrite Negative Negative Urine Bilirubin Negative Negative Urine Glucose Negative Negative Urine White Blood Cell Trace(0-5/hpf) Absent Urine Red Blood Cell 1+(3-5/hpf) Absent Urine Bacteria 1+ Absent Urine Squamous Epithelial Cell Present Absent CBC Auto Diff 12/06/2017 White Blood Count 11.6 10^3/uL High 3.5-10.8 Red Blood Count 5.22 10^6/uL 4.0-5.4 Hemoglobin 15.3 g/dL 12.0-16.0 Hematocrit 46 % 35-47 Mean Corpuscular Volume 87 fL 80-97 Mean Corpuscular Hemoglobin 29 pg 27-31 Mean Corpuscular HGB Conc 34 g/dL 31-36 Red Cell Distribution Width 14 % 10.5-15 Platelet Count 190 10^3/uL 150-450 Mean Platelet Volume 8 um3 7.4-10.4 Abs Neutrophils 10.5 10^3/uL High 1.5-7.7 Abs Lymphocytes 0.7 10^3/uL Low 1.0-4.8 Abs Monocytes 0.4 10^3/uL 0-0.8 Abs Eosinophils 0 10^3/uL 0-0.6 Abs Basophils 0 10^3/uL 0-0.2 Abs Nucleated RBC 0 10^3/uL Granulocyte % 90.7 % High 38-83 Lymphocyte % 5.7 % Low 25-47 Monocyte % 3.2 % 1-9 Eosinophil % 0.3 % 0-6 Basophil % 0.1 % 0-2 Nucleated Red Blood Cells % 0 Laboratory test finding 12/06/2017 Lactic Acid 0.9 mmol/L 0.5-2.0 2 Comp Metabolic Panel 12/06/2017 Sodium 133 mmol/L 133-145 Potassium 3.8 mmol/L 3.5-5.0 Chloride 102 mmol/L 101-111 Co2 Carbon Dioxide 25 mmol/L 22-32 Anion Gap 6 mmol/L 2-11 Glucose 105 mg/dL High 70-100 Blood Urea Nitrogen 16 mg/dL 6-24 Creatinine 0.84 mg/dL 0.51-0.95 BUN/Creatinine Ratio 19.0 8-20 Calcium 8.9 mg/dL 8.6-10.3 Total Protein 7.4 g/dL 6.4-8.9 Albumin 3.9 g/dL 3.2-5.2 Globulin 3.5 g/dL 2-4 Albumin/Globulin Ratio 1.1 1-3 Total Bilirubin 0.80 mg/dL 0.2-1.0 Alkaline Phosphatase 89 U/L 34-104 Alt 17 U/L 7-52 Ast 15 U/L 13-39 Egfr Non- 72.7 >60 Egfr 93.5 >60 3 Laboratory test finding 12/06/2017 Magnesium 1.9 mg/dL 1.9-2.7 Lipase < 10 U/L Low 11.0-82.0 Troponin-I (TnI) 0.00 ng/mL <0.04 HCG < 0.60 mIU/mL 4 Urine Culture And 11/25/2017 Urine Culture SEE RESULT BELOW 5 Sensitivities Urine Culture And 11/16/2017 Urine Culture SEE RESULT BELOW 6 Sensitivities Ua Routine 11/16/2017 Ua Specific [place] 1.025 Ua PH 5 Ua Color yellow Ua Appera clear Ua WBC + Ua Protein TRACE Ua Glucose NORM Ua Ketones NEG Ua Bilirubin NEG Ua Urobilinogen NEG Ua Nitrite NEG Ua Occult Blood MOD Laboratory test finding 10/20/2017 TSH (Thyroid Stim Horm) 1.48 mcIU/mL 0.34-5.60 7 Basic Metabolic Panel 10/20/2017 Sodium 135 mmol/L 133-145 Potassium 4.1 mmol/L 3.5-5.0 Chloride 107 mmol/L 101-111 Co2 Carbon Dioxide 23 mmol/L 22-32 Anion Gap 5 mmol/L 2-11 Glucose 102 mg/dL High 70-100 Blood Urea Nitrogen 16 mg/dL 6-24 Creatinine 0.74 mg/dL 0.51-0.95 BUN/Creatinine Ratio 21.6 High 8-20 Calcium 9.8 mg/dL 8.6-10.3 Egfr Non- 84.5 >60 Egfr 108.7 >60 8 CBC Auto Diff 10/20/2017 White Blood Count 6.0 10^3/uL 3.5-10.8 Red Blood Count 5.02 10^6/uL 4.0-5.4 Hemoglobin 14.7 g/dL 12.0-16.0 Hematocrit 43 % 35-47 Mean Corpuscular Volume 86 fL 80-97 Mean Corpuscular Hemoglobin 29 pg 27-31 Mean Corpuscular HGB Conc 34 g/dL 31-36 Red Cell Distribution Width 14 % 10.5-15 Platelet Count 203 10^3/uL 150-450 Mean Platelet Volume 9 um3 7.4-10.4 Abs Neutrophils 3.9 10^3/uL 1.5-7.7 Abs Lymphocytes 1.6 10^3/uL 1.0-4.8 Abs Monocytes 0.4 10^3/uL 0-0.8 Abs Eosinophils 0.1 10^3/uL 0-0.6 Abs Basophils 0 10^3/uL 0-0.2 Abs Nucleated RBC 0 10^3/uL Granulocyte % 64.3 % 38-83 Lymphocyte % 27.3 % 25-47 Monocyte % 6.0 % 1-9 Eosinophil % 1.8 % 0-6 Basophil % 0.6 % 0-2 Nucleated Red Blood Cells % 0 Lipid Profile (Trig/Chol/HDL) 10/20/2017 Triglycerides 73 mg/dL 9 Cholesterol 193 mg/dL 10 HDL Cholesterol 47.6 mg/dL 11 LDL Cholesterol 131 mg/dL 12 Laboratory test 09/17/2017 Glucose 110 mg/dL High 70-100 finding Laboratory test 05/04/2017 Surgical Interface SEE RESULT 13, 14 finding Order BELOW Urine Culture And 01/19/2017 Urine Culture SEE RESULT 15 Sensitivities BELOW Ua Routine 01/19/2017 Ua Specific 1.015 [place] Ua PH 7 Ua Color ida Ua Appera cloudy Ua WBC + Ua Protein 30+ Ua Glucose neg Ua Ketones neg Ua Bilirubin + Ua Urobilinogen 1 Ua Nitrite neg Ua Occult Blood large Lipid Profile (Trig/Chol/HDL) 03/17/2016 Triglycerides 78 mg/dL 16 Cholesterol 171 mg/dL 17 HDL Cholesterol 40.9 mg/dL 18 LDL Cholesterol 115 mg/dL 19 Laboratory test finding 03/17/2016 Glucose 99 mg/dL 70-100 20 Lipid Profile (Trig/Chol/HDL) 04/26/2015 Triglycerides 81 mg/dL 21 Cholesterol 185 mg/dL 22 HDL Cholesterol 46.6 mg/dL 23 LDL Cholesterol 122 mg/dL 24 Hepatitis B [place] AB 05/07/2014 Hepatitis B Surface AB Nonreactive Nonreactive 25 Titer Hep B Surf AB Index 0.70 25, 26 Laboratory test finding 05/07/2014 Glucose 87 mg/dL 70-100 25, 27 TSH (Thyroid Stimulating Horm) 2.05 IU/mL 0.34-5.60 25, 28 Lipid Profile (Trig/Chol/HDL) 05/07/2014 Triglycerides 72 mg/dL 25, 29 Cholesterol 160 mg/dL 25, 30 HDL Cholesterol 47.1 mg/dL 25, 31 LDL Cholesterol 99 mg/dL 25, 32 Laboratory test finding 05/07/2014 Hepatitis A Antibody Negative Negative 25, 33 Total Laboratory test finding 06/29/2013 Lyme Disease Serology Negative Negative 34 Laboratory test finding 01/27/2013 Throat Culture (SEE NOTE) 35 Laboratory test finding 01/27/2013 Rapid Strep A negative Comp Metabolic Panel 04/28/2012 Sodium 136 mmol/L 135-145 Potassium 3.8 mmol/L 3.5-5.0 Chloride 106 mmol/L 101-111 Co2 (Carbon Dioxide) 26.0 mmol/L 22-32 Anion Gap 4.0 mmol/L 2-11 36 Glucose 99 mg/dL 70-100 BUN 11 mg/dL 6-24 Creatinine 0.8 mg/dL 0.50-1.40 One Over Creatinine 1.25 BUN/Creatinine Ratio 13.8 8-20 Calcium 8.9 mg/dL 8.1-9.9 Total Protein 6.3 GM/DL 6.2-8.1 Albumin 3.7 GM/DL 3.6-5.4 Globulin 2.6 GM/DL 2-4 Albumin/Globulin Ratio 1.4 1-3 Bilirubin Total 0.8 mg/dL 0.4-1.5 37 Alkaline Phosphatase 66 U/L 30-110 Alt (SGPT) 17 U/L 14-54 Ast (Sgot) 13 U/L 12-42 eGFR Non- 79.0 > 60 eGFR 101.7 > 60 38 Lipid Profile (Trig/Chol/HDL) 04/28/2012 Triglyceride 62 mg/dL 40-200 Cholesterol 168 mg/dL Less Than 200 39 High Density Lipoprotein 51 mg/dL 40-60 40 Cholesterol/HDL Ratio 3.29 AVERAGE 1-4.44 Low Density Lipoprotein 105 mg/dL High Less Than 100 41 Laboratory test finding 04/28/2012 CPK (Creatine Kinase) 77 U/L 0-170 Thyroxine Free 0.64 ng/dL 0.61-1.24 TSH 1.65 MIU/ML 0.34-5.60 Hepatitis C Antibody Nonreactive Nonreactive Vad 04/28/2012 Vad Final Nonreactive Nonreactive 42 1 SEE RESULT BELOW Name: NAHOMI DÍAZ : [address]: Tomi Reyes MD Acct: [id number] Unit: [id number] AGE: 47 Location: ED Re12/06/17 SEX: F Status: DEP ER SPEC: [id number] DUC: 12/06/17 [facility] DR: Tomi Reyes MD REQ: [id number] RECD: 12/06/17 STATUS: ISHMAEL BENITEZ DR: Marci Deluna MD _ S[facility] ORDERED: Urine Culture Procedure Result Reported Site Urine Culture Final 12/08/17- 0807 ML No growth of clinically significant organisms * ML - MAIN LAB ([facility]) . END OF REPORT * ML=Testing performed at Main Lab DEPARTMENT OF PATHOLOGY, [address] [place] [address] Zachary Hammond M.D. Director [facility] # [id number] 2 [facility] Severe Sepsis and Septic Shock Management Bundle Measure requires all lactic acids initially measuring >2.0 mmol/L be repeated. 3 Because ethnic data is not always readily available, this report includes an eGFR for both -Americans and non- Americans. The National Kidney Disease Education Program (NKDEP) does not endorse the use of the MDRD equation for patients that are not between the ages of 18 and 70, are , have extremes of body size, muscle mass, or nutritional status, or are non- or non-. According to the National Kidney Foundation, irrespective of diagnosis, the stage of the disease is based on the level of kidney function: Stage Description GFR(mL/min/1.73 m(2)) 1 Kidney damage with normal or decreased GFR 90 2 Kidney damage with mild decrease in GFR 60-89 3 Moderate decrease in GFR 30-59 4 Severe decrease in GFR 15-29 5 Kidney failure <15 (or dialysis) 4 <5.0 Negative 5.0 - 25.0 Indeterminate (Repeat testing recommended after 72 hours) >25.0 Positive Perimenopausal women can display HCG levels of up to 20 mIU/mL 5 SEE RESULT BELOW Name: NAHOMI DÍAZ : [address]: Ddoie Leon Acct: [id number] Unit: [id number] AGE: 46 Location: [facility] Re11/25/17 SEX: F Status: REG REF SPEC: [id number] DUC: 11/25/17-[address]: Dodie Leon REQ: [id number] RECD: 11/26/17 STATUS: ISHMAEL BENITEZ DR: Marci Deluna MD _ SOURCE: URINE SPDESC: ORDERED: Urine Culture COMMENTS: [id number] Urine Source: Random Procedure Result Reported Site Urine Culture Final 11/27/17- 1352 ML No growth of clinically significant organisms * ML - MAIN LAB ([facility]) . END OF REPORT * ML=Testing performed at Main Lab DEPARTMENT OF PATHOLOGY, [address] [place] [address] Zachary Hammond M.D. Director [facility] # [id number] 6 SEE RESULT BELOW Name: NAHOMI DÍAZ : [address]: Marci Deluna MD Acct: [id number] Unit: [id number] AGE: 46 Location: [facility] Re11/16/17 SEX: F Status: REG REF SPEC: [id number] DUC: 11/16/17 [facility] [address]: Marci Deluna MD REQ: [id number] RECD: 11/16/17 STATUS: COMP _ SOURCE: URINE SPDESC: ORDERED: Urine Culture COMMENTS: [id number] Procedure Result Reported Site Urine Culture Final 11/18/17- 0940 ML No growth of clinically significant organisms * ML - MAIN LAB ([facility]) . END OF REPORT * ML=Testing performed at Main Lab DEPARTMENT OF PATHOLOGY, [address] [place] [address] Zachary Hammond M.D. Director [facility] # [id number] 7 FASTING 10 HOUR 8 Because ethnic data is not always readily available, this report includes an eGFR for both -Americans and non- Americans. The National Kidney Disease Education Program (NKDEP) does not endorse the use of the MDRD equation for patients that are not between the ages of 18 and 70, are , have extremes of body size, muscle mass, or nutritional status, or are non- or non-. According to the National Kidney Foundation, irrespective of diagnosis, the stage of the disease is based on the level of kidney function: Stage Description GFR(mL/min/1.73 m(2)) 1 Kidney damage with normal or decreased GFR 90 2 Kidney damage with mild decrease in GFR 60-89 3 Moderate decrease in GFR 30-59 4 Severe decrease in GFR 15-29 5 Kidney failure <15 (or dialysis) 9 Desirable: <150 Borderline High: 150-199 High: 200-499 Very High: >500 10 Desirable: <200 Borderline High: 200-239 High: >239 11 Low: <40 Desirable: 40-60 High: >60 12 Desirable: <100 Near Optimal: 100-129 Borderline High: 130-159 High: 160-189 Very High: >189 13 [id number] 14 SEE RESULT BELOW Name: NAHOMI DÍAZ : [address]: Ector Juarez MD Acct: [id number] Unit: [id number] AGE: 46 Location: [facility] Re05/04/17 SEX: F Status: DEP REF SPEC: [id number] DUC: 05/04/17-[address]: Ector Juarez MD REQ: [id number] RECD: 05/04/17-1225 STATUS: NERISSA BENITEZ DR: Marci Deluna MD _ ORDERED: LEVEL 4 COMMENTS: [id number] FINAL DIAGNOSIS Colon, rectum, biopsy: -- Hyperplastic polyp. CLINICAL HISTORY No history given POST-OPERATIVE DIAGNOSIS Colonoscopy to terminal ileum - moderate drew tics, left greater than right; polyps x3 rectum biopsied GROSS DESCRIPTION The specimen is received in formalin labeled, Biopsies Rectal Polyps, and consists of a 0.6 x 0.5 by up to 0.3 cm aggregate of hartley-pink irregular to polypoid soft tissue fragments which is submitted entirely in one cassette. Signed (signature on file) Zachary Hammond MD [id number] END OF REPORT * ML=Testing performed at Main Lab DEPARTMENT OF PATHOLOGY, [address] [place] [address] Zachary Hammond M.D. Director [facility] # [id number] 15 SEE RESULT BELOW Name: NAHOMI DÍAZ : [address]: Camilla Estrada NP Acct: [id number] Unit: [id number] AGE: 46 Location: [facility] Re01/19/17 SEX: F Status: REG REF SPEC: [id number] DUC: 01/19/17-[address]: Camilla Estrada NP REQ: [id number] RECD: 01/19/17 STATUS: COMP _ SOURCE: URINE [facility]: ORDERED: Urine Culture COMMENTS: [id number] Urine Source: Random Procedure Result Reported Site Urine Culture Final 01/21/17- 0856 ML No growth of clinically significant organisms * ML - MAIN LAB ([facility]) . END OF REPORT * ML=Testing performed at Main Lab DEPARTMENT OF PATHOLOGY, [address] [place] [address] Zachary Hammond M.D. Director [facility] # [id number] 16 Desirable <150 Borderline high 150-199 High 200-499 Very High >500 17 Desirable <200 Borderline high 200-239 High >239 18 Low <40 Desirable: 40-60 High: >60 19 Desirable: <100 mg/dL Near Optimal: 100-129 mg/dL Borderline High: 130-159 mg/dL High: 160-189 mg/dL Very High: >189 mg/dL 20 FASTING 12 HOUR 21 Desirable <150 Borderline high 150-199 High 200-499 Very High >500 22 Desirable <200 Borderline high 200-239 High >239 23 Low <40 Desirable: 40-60 High: >60 24 Desirable: <100 mg/dL Near Optimal: 100-129 mg/dL Borderline High: 130-159 mg/dL High: 160-189 mg/dL Very High: >189 mg/dL 25 FASTING 10 HOUR 26 The World Health Organization (WHO) Hepatitis B Immunoglobulin 1st International Reference Preparation (1976): The accepted criteria for immunity to HBV is anti-HBs activity greater than or equal to 10 mIU/mL. An Index Value of 1.00 is equivalent to 10 mIU/mL. Samples with an Index Value of 1.00 or greater are considered reactive (protective) in accordance with the CDC guidelines. 27 FASTING 10 HOUR 28 FASTING 10 HOUR 29 Desirable <150 Borderline high 150-199 High 200-499 Very High >500 30 Desirable <200 Borderline high 200-239 High >239 31 Low <40 Desirable: 40-60 High: >60 32 Desirable <100 Near Optimal 100-129 Borderline high 130-159 High 160-189 Very High >189 33 Test Performed by: [place] [id number] Rebar Worker: Lonnie King III, M.D. 34 Serologic response to B. burgdorferi infection is not detected, but cannot rule out early infection during which low or undetectable antibody levels to B. burgdorferi may be present. If clinically indicated, a new serum specimen should be submitted in 7-14 days. Test Performed by: [place] [id number] Rebar Worker: Lonnie King III, M.D. 35 RUN DATE: 01/29/13 [facility] LAB LIVE PAGE 1 RUN TIME: 1205 [address] [facility], [place], [place] [address] Specimen Inquiry Name: NAHOMI SANFORD : [address]: Namita Donohue NP Acct: [id number] Unit: [id number] AGE: 42 Location: [facility] Re01/27/13 SEX: F Status: REG REF SPEC: [id number] DUC: 01/27/13-[address]: Namita Donohue NP REQ: [id number] RECD: 01/27/13 STATUS: COMP _ SOURCE: THROAT SPDESC: ORDERED: Throat Culture QUERIES: Medent Number [id number] Procedure Result Verified Site Throat Culture Final 01/29/13- 1205 ML Organism 1 NORMAL QUINCY Quantity 3+ END OF REPORT * ML=Testing performed at Main Lab DEPARTMENT OF PATHOLOGY, [address] [place] [address] Zachary Hammond M.D. Director [facility] Permit #[id number] 36 Anion gap measurement may be of limited value in the presence of any alkalosis, especially in a combined acid base disorder. . 37 A metabolite of Naproxen, O-desmethylnaproxen, has been shown to interfere with the Jendrassik-Celsa method for measuring total bilirubin. Samples from patients who have taken Naproxen have shown spurious elevation in total bilirubin levels. 38 Because ethnic data is not always readily available, this report includes an eGFR for both -Americans and non- Americans. The National Kidney Disease Education Program (NKDEP) does not endorse the use of the MDRD equation for patients that are not between the ages of 18 and 70, are , have extremes of body size, muscle mass, or nutritional status, or are non- or non-. According to the National Kidney Foundation, irrespective of diagnosis, the stage of the disease is based on the level of kidney function: Stage Description GFR(mL/min/1.73 m(2)) 1 Kidney damage with normal or decreased GFR 90 2 Kidney damage with mild decrease in GFR 60-89 3 Moderate decrease in GFR 30-59 4 Severe decrease in GFR 15-29 5 Kidney failure <15 (or dialysis) 39 CHOLESTEROL INTERPRETATION: Desirable: Less than 200 MG/DL Borderline-High Risk: 200-239 MG/DL High-Risk: 240 MG/DL and over 40 HDL INTERPRETATION: Undesirable: High Risk: Less than 40 MG/DL Desirable: Low Risk: Greater than 60 MG/DL 41 LDL INTERPRETATION: Low Risk Optimal Level: LDL Less than 100 MG/DL Near or Above Optimal: LDL 100-129 MG/DL Borderline High Risk: LDL 130-159 MG/DL High Risk: LDL 160-189 MG/DL Very High Risk: LDL Greater than 189 MG/DL 42 It is recognized that currently available assays for the detection of antibodies to HIV-1 and/or HIV-2 may not detect all infected individuals. HIV antibodies may be undetectable in some stages of the infection and in some clinical conditions. The performance of this assay has not been established for populations of infants or children. Assayed by Chemiluminescence Microparticle Immunoassay on the [employer]ecnob[employer] CP. Values obtained with different methods or kits cannot be used interchangeably.The diagnostic specificity of the ADV[employer] Centaur 1/O/2 Enhanced assay in the low risk population was 99.90% (6052/6058) with a 95% confidence interval of 99.78 to 99.96%. Procedures Date CPT Code Description Status 04/14/2018 Mammogram Completed 10/22/2017 19239 Holter Monitor Review (24 hr)dr gutierrez & gavin only Completed 10/18/2017 77504 ECG Monitor/Recording W/Visual Superimposition Scanning Completed 05/04/2017 Colonoscopy Completed 04/08/2017 Mammogram Completed 09/07/2016 79638 ECHO Stress Test Incl Perf Contiuous ekg Monitoring Completed W/Phys Superv 09/07/2016 60208 ECHO Stress Test Incl Perf Contiuous ekg Monitoring Completed W/Phys Superv 07/27/2016 48537 EKG Tracing & Interpretation Completed 04/06/2016 Mammogram Completed 04/05/2015 Mammogram Completed 04/04/2014 Mammogram Completed 03/11/2012 Colonoscopy Completed Encounters Type Date Location Provider CPT E/M Dx Office Visit 04/22/2018 [facility] Marci Deluna 27171 R03.0 10:00a - Wade Cho Office Visit 02/28/2018 [facility] Marci Deluna 49243 F41.9 1:00p - Wade Cho Office Visit 02/18/2018 [facility] Marci Deluna, 02811 F41.9 3:20p - [place] Tammie Office Visit 01/06/2018 [facility] Marci Deluna, 72163 R10.2 3:40p - Wade Cho R05 R03.0 Office Visit 11/16/2017 2:20p [facility] Marci Deluna 84420 N39.0 - [place] MJacqui Office Visit 10/08/2017 9:00a [facility] Dominick Wright, BRYAN 59718 J06.9 - [place] R73.01 R00.2 Z13.220 K21.9 Office Visit 09/06/2017 3:00p [facility] Marci Deluna, 64828 Z00.00 - [place] MJacqui R63.5 Office Visit 06/29/2017 2:40p [facility] Camilla Estrada, N.P. 28183 R10.32 - [place] Office Visit 01/19/2017 11:20a [facility] Camilla Estrada, N.P. 16463 R10.30 - [place] M46.1 Office Visit 11/26/2016 9:00a [facility] - [place] A [address] I10 Wade R63.5 Office Visit 07/27/2016 8:40a [facility] Marci Deluna 78790 R63.5 - [place] M.Eladia R06.02 Office Visit 03/26/2016 1:20p [facility] Mraci Deluna 48874 Z00.00 - [place] M.Eladia Office Visit 02/21/2016 2:20p [facility] Marci Deluna 33098 J06.9 - [place] M.DElzbieta Office Visit 07/22/2015 2:40p [facility] Marci Deluna 25729 783.1 - [place] M.DElzbieta Office Visit 05/09/2015 1:00p [facility] Marci Deluna 56338 783.1 - [place] M.D. Office Visit 05/02/2014 10:40a [facility] Swetha Mtz M.D. 73296 V70.0 - [place] 729.4 Office Visit 01/02/2014 4:00p [facility] Marci Deluna, 99882 465.9 - [place] Cho Office Visit 09/06/2013 3:20p [facility] Swetha Mtz M.D. 68881 683 - [place] V04.81 V70.4 Office Visit 06/28/2013 9:40a [facility] - Swetha Mtz M.D. 75262 789.07 [place] 300.00 Office Visit 04/21/2013 3:40p [facility] Internal [facility] - Swetha Mtz M.D. 36573 784.0 [place] 388.8 300.00 Office Visit 03/29/2013 4:00p [facility] Swetha Mtz M.D. 53611 995.3 - [place] Office Visit 01/27/2013 3:30p [facility] Murray Buitrago.Derek 37932 461.1 - [place] 462 Office Visit 10/27/2012 3:40p [facility] Timmy Cruz, 20005 465.9 - [place] Cho Office Visit 08/26/2012 4:00p [facility] Swetha Mtz M.D. 50833 300.00 - [place] Office Visit 08/08/2012 4:20p [facility] Swetha Mtz M.D. 59045 300.00 - [place] 784.0 Office Visit 07/29/2012 11:00a [facility] - Swetha Mtz M.D. 67780 388.8 [place] Office Visit 07/15/2012 2:40p [facility] Internal [facility] - Swetha Mtz M.D. 72440 300.00 [place] Office Visit 04/26/2012 1:40p [facility] Internal [facility] - Swetha Mtz M.D. 24818 V17.49 [place] 272.0 278.00 789.04 V06.1 V73.99 Plan of Care Future Appointment(s):07/19/2018 9:00 am - Nurse Visit A at [facility] Internal Medicine - Wfottzjsz94/23/2018 9:20 am - Marci Deluna M.D. at [facility] Internal Medicine - Sxqomqnrw52/11/2018 - Hay EnamoradoP.R10.10 Upper abdominal pain, unspecifiedNew Medication:Ranitidine HCL 150 mgComments:I believe you are having reflux. I have prescribed Ranitidine 150 mg, take 1 tabelt twice daily.I urge you to avoid spicy, greasy, and acidic foods. Raw vegetables and fruits may upset your stomach also.I have ordered an ultrasound of your abdomen to check for gallstones or other issues. I will contact you with your results.
[2018-06-27 16:53] VITALS: BP 128/100
--- NOTE | 2018-06-27 16:55 | UC ---
Respiratory Complaint HPI - HPI Summary HPI Summary: 47 y/o female presents to the urgent care c/o nasal congestion w/ yellowish nasal discharge and dry cough for the past 1.5 weeks. Pt reports symptoms started w/ common cold and she went to vacation [place] and symptoms worsen. For the past 3 days she has developed mild sore throat and Rt ear pain and pressure. She has been swimming. Pt Started to take Nyquill PO to alleviate cough since she hasn't been able to sleep. Pain is 4/10. Pt denies fever, SOB, chest pain, abdominal pain, N/V/D, headache. - History of Current Complaint Chief Complaint: UCRespiratory Stated Complaint: THROAT/ RIGHT EAR COMPLAINT Time Seen by Provider: 06/27/18 16:54 Hx Obtained From: Patient Hx Last Menstrual Period: 06/25/18 Onset/Duration: Gradual Onset, Lasting Weeks - 1.5 weeks, Still Present, Worse Since - 3 days Timing: Intermittent Episodes Severity Initially: Mild Severity Currently: Moderate Pain Intensity: 4 - RT ear pain Pain Scale Used: 0-10 Numeric Character: Cough: Nonproductive Aggravating Factors: Recumbent Position Alleviating Factors: OTC Meds - Nyquill PO Associated Signs And Symptoms: Positive: URI, Nasal Congestion, Sinus Discomfort. Negative: Fever, Chills, Wheezing - Risk Factors Pulmonary Embolism Risk Factors: Negative Cardiac Risk Factors: Negative Pseudomonas Risk Factors: Negative Tuberculosis Risk Factors: Negative - Allergies/Home Medications Allergies/Adverse Reactions: Allergies Allergy/AdvReac Type Severity Reaction Status Date / Time Penicillins Allergy Rash Verified 06/27/18 16:53 PMH/Surg Hx/FS Hx/Imm Hx Previously Healthy: Yes - Pt denies PMHX - Surgical History Surgical History: None Surgery Procedure, Year, and Place: April 2017 Colonoscopy - Family History Known Family History: Positive: Cardiac Disease, Hypertension - Social History Occupation: Employed Full-time Lives: With Family Alcohol Use: Occasionally Substance Use Type: None Smoking Status (MU): Never Smoked Tobacco - Immunization History Most Recent Influenza Vaccination: 2016 Review of Systems Constitutional: Negative Skin: Negative Eyes: Negative ENT: Sore Throat - mild, Ear Ache - RT ear pain and pressure, Nasal Discharge, Sinus Congestion, Sinus Pain/Tenderness Respiratory: Cough - dry Cardiovascular: Negative Gastrointestinal: Negative Genitourinary: Negative Motor: Negative Neurovascular: Negative Musculoskeletal: Negative Neurological: Negative Psychological: Negative Is Patient Immunocompromised?: No All Other Systems Reviewed And Are Negative: Yes Physical Exam - Summary Physical Exam Summary: Vitals: reviewed General: Well developed, well-nourished obese female patient with NAD. Head and face: Normocephalic and atraumatic, Positive tenderness over the frontal and maxillary sinuses.. Eyes: PERRLA, EOMI x 2. Normal conjunctiva. No eye discharge. ENT: Ears and TM with normal limits. Nose: edematous and erythematous nasal mucosa with with yellowish discharge and erythematous mucosa. Pharynx with erythema, no exudate. +yellowish PND Neck: Supple, no JVD, no carotid bruits and no lymphadenopathy. Lungs: clear, no rales, no rhonchi, no wheezes. CVS: RRR, S1 and S2 present no murmurs or gallops appreciated. Abdomen: soft nontender with positive bowel sounds. Extremities: no edema noted. Neuro: WNL. Skin: warm and dry Triage Information Reviewed: Yes Vital Signs: Initial Vital Signs Temp 98.5 F 06/27/18 16:48 Pulse 97 06/27/18 16:48 Resp 17 06/27/18 16:48 BP 128/100 06/27/18 16:48 Pulse Ox 100 06/27/18 16:48 UC Diagnostic Evaluation - Laboratory O2 Sat by Pulse Oximetry: 100 Respiratory Course/Dx - Course Course Of Treatment: 47 y/o female presents to the urgent care c/o nasal congestion w/ yellowish nasal discharge and dry cough for the past 1.5 weeks. Pt reports symptoms started w/ common cold and she went to vacation [place] and symptoms worsen. For the past 3 days she has developed mild sore throat and Rt ear pain and pressure. She has been swimming. Pt Started to take Nyquill PO to alleviate cough since she hasn't been able to sleep. Pain is 4/ 10. Pt denies fever, SOB, chest pain, abdominal pain, N/V/D, headache. Hx obtained. Pt w/ Acute bacterial sinusitis on examination. Pt is PCN allergic. Pt with 1.5 weeks of symptoms getting worse. Pt Rx Doxyxycline PO and flonase nasal spray. Tessalon PO for cough. Discharge instructions explained to Pt. Advised to Return to the clinic or PCP if symptoms do not improve.Pt understood and agreed with plan of care. - Differential Dx/Diagnosis Differential Diagnosis/HQI/PQRI: Bronchitis, Laryngitis, Sinusitis Provider Diagnoses: 1- Acute bacterial sinusitis. 2- Cough Discharge - Sign-Out/Discharge Documenting (check all that apply): Patient Departure - D/c home - Discharge Plan Condition: Stable Disposition: HOME Prescriptions: Benzonatate CAP* [Tessalon 100 MG CAP*] 100 mg PO TID PRN #21 cap PRN Reason: Cough DOXYcycline CAP(*) [DOXYcycline 100MG CAP(*)] 100 mg PO BID #20 cap Fluticasone NASAL SPRAY 50MCG* [Flonase NASAL SPRAY 50MCG*] 2 spray BOTH NARES DAILY #1 btl Patient Education Materials: Sinusitis (ED) Referrals: Marci Deluna MD [Primary Care Provider] - 1 Week Additional Instructions: 1- Please increase fluid intake and rest. take full course of antibiotic to avoid resistance 2-Use Flonase as directed to help drain fluid. Also buy saline drops to clear sinuses 3-Take Tessalon PO to alleviate cough 4-Return to the clinic or PCP in 1 week if symptoms do not improve for further management and treatment - Billing Disposition and Condition Condition: STABLE Disposition: Home
== END 2018-06-27 17:19 | disposition home or self-care (01) ==
LOC: UCCORT 16:10
DX: J01.90 Acute sinusitis, unspecified (principal); R05 Cough; Z88.0 Allergy status to penicillin
CPT/HCPCS: 99212; G0463

== ENCOUNTER 2018-07-17 15:10 | Emergency (ER) | payer BC ==
--- OUTSIDE RECORDS SUMMARY | 2018-07-17 15:20 | XMS REPORT ---
:1970 External Reference #:[id number] Author Organization [facility] Address [address] [facility] [place] [address] Phone [phone] Care Team Providers Name Role Phone Marci Deluna MD Primary Care Physician Unavailable Payers Type Date Identification Numbers Payment Provider Subscriber Commercial Effective: Policy Number: BS Chilango Nahomi 2014 [id number] ColeRadhaJalen PayID: [id number] [address] [address] [place] [address] Medigap Part B Effective: Policy Number: BS Chilango Varma 2011 [id number] Expires: 2012 PayID: [id number] [address] [address] [place] [address] Problems Date Description Provider Status Onset: 04/26/2012 FH: Cardiovascular disease Swetha Mtz M.D. 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 Ventolin HFA 07/15 Active Aerosol 108(90Bas 18uni 1 to 2 R05 e) ts inhalations Varn, N.P. mcg/Act every 4 hours as needed Medrol 07/11 Hx TBPK 4mg 21uni 6 by mouth ts day 1, 5 by Varn, N.P. - mouth day 07/17 2, 4 by mouth day 3, 3 by mouth day 4, 2 by mouth day 5, 1 by mouth day 6 Clarithromycin 07/06 Hx Tablets 500mg 20tab take 1 J01.90 s tablet Varn, N.P. - twice a day 07/16 for Guaifenesin-Cod 07/01 Active Solution 100-10mg/ 120ml 5-10 Marci ei 5ML milliliters Cotton, every 6 M.D. hours as needed Flonase Allergy 06/27 Active Suspension 50mcg/Act 1unit Every Day Unknown s Tessalon Perles 06/27 Active Capsules 100mg 21cap Three Times s Daily Advil Active Capsules 200mg as needed Unknown / Doxycycline 06/27 Hx Capsules 100mg 20cap Twice Daily Unknown cl s - 07/06 Ranitidine HCL 06/08 Hx Tablets 150mg 60tab take one R10.10 s tablet by Varn, N.P. - mouth twice 07/06 a day /2017 Azithromycin 10/26 Hx Tablets 250mg 6tabs 2 tabs by Dominick mouth every Kyle, THREAD SPOOLER - day x1 day, 10/30 1 tab by /2016 mouth every day x 4 days Fluticasone 10/08 Hx Suspension 50mcg/Act 16uni 2 sprays J06.9 Dominick ts each Kyle, THREAD SPOOLER - nostril qd. 02/18 x 2 weeks /2017 Omeprazole 10/[address] 20mg 30cap 1 by mouth K21.9 Dominick s once daily Kyle, THREAD SPOOLER - 02/18 No Active 05/09 Hx Unknown Medications /2014 - 09/06 Tamiflu 01/11 Hx Capsules 75mg 10cap 1 tab by Marci /2015 s mouth once Cotton, - daily for M.D. 01/22 No Active 01/27 Hx Unknown Medications /2012 - 01/27 Doxycycline 01/[address] 100mg 14tab 100 mg 461.1 Namita Hycl s orally Charanjit, - twice daily N.P. 02/03 x 7 days Nasal Saline 01/27 Hx Solution 0.65% 1ml 2 sprays in 461.1 Namita /2012 each Charanjit, - nostril 5 N.P. 02/04 times a day /2013 Nasonex 01/27 Hx Suspension 50mcg/Act 17g 2 sprays in 461.1 Namita /2012 each Charanjit, - nostril N.P. /04 once daily /2013 Tessalon Perles 01/27 Hx Capsules 100mg 60cap 1 tab po 461.1 Namita /2012 s tid prn Charanjit, - N.P. 01/02 Ibuprofen 01/27 Hx Tablets 400mg 100ta 400 mg po 462 Namita /2012 bs q4-6h; max Charanjit, - 2400 mg/day N.P. 05/09 Zithromax Z-Leo 10/27 Hx Tablets 250mg 1Pack as per Timmy Martin /2012 directions Radha Cruz.Eladia 01/27 Codeine 10/27 Hx Liquid 300-10mg/ 4oz 10cc q 4 Timmy Martin Phosphate/Guaif 5ML hrs prn lucy Cruz - cough M.DElzbieta 01/27 Lexapro 08/08 Hx Tablets 10mg 60tab 1 tablet 300.00 Swetha s daily for 1 Mtz, - week, then M.D. 10/27 2 tablets /2011 daily Citracal Hx Tablets 315-250mg 2 tablet Unknown Maximum /0000 -Unit daily - 01/27 Align Probiotic Hx 4mg po qd Unknown /0000 - 01/27 Probiotic Hx Capsules 30cap once a day Unknown Acidophilus / s prn - 05/09 Immunizations CPT Code Status Date Vaccine Lot # [id number] Given 08/26/2016 Flu Vaccine NOS [id number] Given 09/06/2013 Flu Vaccine Split Virus Preservative Free For [id number] Indiv [id number] Older [id number] Given 04/26/2012 Tdap - Tetanus/Diptheria/Acellular Pertussis [id number] Vital Signs Date Vital Result Comment 07/15/2018 Height 66 inches 5'6" Weight 255.00 lb Heart Rate 88 /min BP Systolic 124 mmHg BP Diastolic 80 mmHg Body Temperature 98.1 F O2 % BldC Oximetry 95 % BMI (Body Mass Index) 41.2 kg/m2 07/06/2018 Height 66 inches 5'6" Weight 259.00 lb Heart Rate 97 /min BP Systolic 139 mmHg BP Diastolic 90 mmHg Body Temperature 98.5 F O2 % BldC Oximetry 96 % BMI (Body Mass Index) 41.8 kg/m2 06/08/2018 Height 66 inches 5'6" Weight 255.00 [...] Test Date Test Result H/L Range Note Laboratory test 06/24/2018 Cytology SEE RESULT BELOW 1 finding CBC Auto Diff 12/06/2017 White Blood Count [...] 12/06/2017 Lactic Acid 0.9 mmol/L 0.5-2.0 2 Urine Culture And 12/06/2017 Urine Culture SEE RESULT BELOW 3 Sensitivities Comp Metabolic Panel 12/06/2017 Sodium 133 mmol/L [...] Egfr Non- 72.7 >60 Egfr 93.5 >60 4 Laboratory test finding 12/06/2017 Magnesium 1.9 mg/dL 1.9-2.7 Lipase < 10 U/L Low 11.0-82.0 Troponin-I (TnI) 0.00 ng/mL <0.04 HCG < 0.60 mIU/mL 5 Urinalysis Profile 12/06/2017 Urine Color Yellow Urine Appearance Cloudy Urine Specific [place] 1.027 1.010-1.030 Urine pH 5.0 5-9 Urine Urobilinogen Negative Negative Urine Ketones Negative Negative Urine Protein Negative Negative Urine Leukocytes 2+ Negative Urine Blood 2+ Negative Urine Nitrite Negative Negative Urine Bilirubin Negative Negative Urine Glucose Negative Negative Urine White Blood Cell Trace(0-5/hpf) Absent Urine Red Blood Cell 1+(3-5/hpf) Absent Urine Bacteria 1+ Absent Urine Squamous Epithelial Cell Present Absent Urine Culture And 11/25/2017 Urine Culture SEE RESULT BELOW 6 Sensitivities Urine Culture And 11/16/2017 Urine Culture SEE RESULT BELOW 7 Sensitivities Ua Routine 11/16/2017 Ua Specific [place] 1.025 Ua PH 5 Ua Color yellow Ua Appera clear Ua WBC + Ua Protein TRACE Ua Glucose NORM Ua Ketones NEG Ua Bilirubin NEG Ua Urobilinogen NEG Ua Nitrite NEG Ua Occult Blood MOD Laboratory test finding 10/20/2017 TSH (Thyroid Stim Horm) 1.48 mcIU/mL 0.34-5.60 8 Basic Metabolic Panel 10/20/2017 Sodium 135 mmol/L 133-145 Potassium 4.1 mmol/L 3.5-5.0 Chloride 107 mmol/L 101-111 Co2 Carbon Dioxide 23 mmol/L 22-32 Anion Gap 5 mmol/L 2-11 Glucose 102 mg/dL High 70-100 Blood Urea Nitrogen 16 mg/dL 6-24 Creatinine 0.74 mg/dL 0.51-0.95 BUN/Creatinine Ratio 21.6 High 8-20 Calcium 9.8 mg/dL 8.6-10.3 Egfr Non- 84.5 >60 Egfr 108.7 >60 9 CBC Auto Diff 10/20/2017 White Blood Count [...] Lipid Profile (Trig/Chol/HDL) 10/20/2017 Triglycerides 73 mg/dL 10 Cholesterol 193 mg/dL 11 HDL Cholesterol 47.6 mg/dL 12 LDL Cholesterol 131 mg/dL 13 Laboratory test 09/17/2017 Glucose 110 mg/dL High 70-100 finding Laboratory test 05/04/2017 Surgical Interface SEE RESULT 14, 15 finding Order BELOW Urine Culture And 01/19/2017 Urine Culture SEE RESULT 16 Sensitivities BELOW Ua Routine 01/19/2017 Ua Specific 1.015 [place] Ua PH 7 Ua Color ida Ua Appera cloudy Ua WBC + Ua Protein 30+ Ua Glucose neg Ua Ketones neg Ua Bilirubin + Ua Urobilinogen 1 Ua Nitrite neg Ua Occult Blood large Lipid Profile (Trig/Chol/HDL) 03/17/2016 Triglycerides 78 mg/dL 17 Cholesterol 171 mg/dL 18 HDL Cholesterol 40.9 mg/dL 19 LDL Cholesterol 115 mg/dL 20 Laboratory test finding 03/17/2016 Glucose 99 mg/dL 70-100 21 Lipid Profile (Trig/Chol/HDL) 04/26/2015 Triglycerides 81 mg/dL 22 Cholesterol 185 mg/dL 23 HDL Cholesterol 46.6 mg/dL 24 LDL Cholesterol 122 mg/dL 25 Hepatitis B [place] AB 05/07/2014 Hepatitis B Surface AB Nonreactive Nonreactive 26 Titer Hep B Surf AB Index 0.70 26, 27 Laboratory test finding 05/07/2014 Hepatitis A Antibody Negative Negative 26, 28 Total Laboratory test finding 05/07/2014 Glucose 87 mg/dL 70-100 26, 29 TSH (Thyroid Stimulating Horm) 2.05 IU/mL 0.34-5.60 26, 30 Lipid Profile (Trig/Chol/HDL) 05/07/2014 Triglycerides 72 mg/dL 26, 31 Cholesterol 160 mg/dL 26, 32 HDL Cholesterol 47.1 mg/dL 26, 33 LDL Cholesterol 99 mg/dL 26, 34 Laboratory test finding 06/29/2013 Lyme Disease Serology Negative Negative 35 Laboratory test finding 01/27/2013 Rapid Strep A negative Laboratory test finding 01/27/2013 Throat Culture (SEE NOTE) 36 Comp Metabolic Panel 04/28/2012 Sodium 136 mmol/L 135-145 Potassium 3.8 mmol/L 3.5-5.0 Chloride 106 mmol/L 101-111 Co2 (Carbon Dioxide) 26.0 mmol/L 22-32 Anion Gap 4.0 mmol/L 2-11 37 Glucose 99 mg/dL 70-100 BUN 11 mg/dL 6-24 Creatinine 0.8 mg/dL 0.50-1.40 One Over Creatinine 1.25 BUN/Creatinine Ratio 13.8 8-20 Calcium 8.9 mg/dL 8.1-9.9 Total Protein 6.3 GM/DL 6.2-8.1 Albumin 3.7 GM/DL 3.6-5.4 Globulin 2.6 GM/DL 2-4 Albumin/Globulin Ratio 1.4 1-3 Bilirubin Total 0.8 mg/dL 0.4-1.5 38 Alkaline Phosphatase 66 U/L 30-110 Alt (SGPT) 17 U/L 14-54 Ast (Sgot) 13 U/L 12-42 eGFR Non- 79.0 > 60 eGFR 101.7 > 60 39 Lipid Profile (Trig/Chol/HDL) 04/28/2012 Triglyceride 62 mg/dL 40-200 Cholesterol 168 mg/dL Less Than 200 40 High Density Lipoprotein 51 mg/dL 40-60 41 Cholesterol/HDL Ratio 3.29 AVERAGE 1-4.44 Low Density Lipoprotein 105 mg/dL High Less Than 100 42 Laboratory test finding 04/28/2012 CPK (Creatine Kinase) 77 U/L 0-170 Thyroxine Free 0.64 ng/dL 0.61-1.24 TSH 1.65 MIU/ML 0.34-5.60 Hepatitis C Antibody Nonreactive Nonreactive Vad 04/28/2012 Vad Final Nonreactive Nonreactive 43 1 SEE RESULT BELOW Name: NAHOMI SANFORD : [address]: Gabrielle Shirley MD Acct: [id number] Unit: [id number] AGE: 47 Location: [facility] Re06/24/18 SEX: F Status: REG REF SPEC: [id number] DUC: 06/24/18-[address] [facility] [address]: Gabrielle Shirley MD REQ: [id number] RECD: 06/27/18-1226 STATUS: NERISSA BENITEZ DR: Marci Deluna MD _ ORDERED: TP IMAGE ANALYS, HPV/Thin Prep COMMENTS: [id number] Negative for Intraepithelial lesion or Malignancy Date Time Test Result Flag (u) Normal Range 06/24/18 1510 @ HPV RNA Negative Negative @ @ The high-risk HPV types detected by the assay include: 16, @ 18, 31, 33, 35, 39, 45, 51, 52, 56, 58, 59, 66, and 68. A. Ectocervical/Endocervical Specimen Adequacy: Satisfactory of evaluation Transformation zone component identified Patient Information: HPV: High risk HPV RNA testing regardless of pap results. Actual Specimen Date: 06/24/18 Last Menstrual Date: 05/31/17 Date of Last Specimen: 04/06/16 Signed by and Reported on: JOSE R Garcia (ASCP) [id number] This Pap test was evaluated with the assistance of the SticherPrep Test Imaging System. Due to cytologic findings at the otr tanker truck driver microscope, comprehensive manual rescreening by a Area Operations Manager may be required. The Pap Smear is a screening test designed to aid in the detection of premalignant and malignant conditions of the uterine cervix. It is not a diagnostic procedure and should not be used as the sole means of detecting cervical cancer. Both false- positive and false- negative reports do occur. Depending on your risk status, a Pap smear should be obtained and evaluated every 1-3 years. END OF REPORT DEPARTMENT OF PATHOLOGY, [address] [place] [address] Zachary Hammond M.D. Director [facility] # [id number] 2 [facility] Severe Sepsis and Septic Shock Management Bundle Measure requires all lactic acids initially measuring >2.0 mmol/L be repeated. 3 SEE RESULT BELOW Name: NAHOMI DÍAZ : [address]: Tomi Reyes MD Acct: [id number] Unit: [id number] AGE: 47 Location: ED Re12/06/17 SEX: F Status: DEP ER SPEC: [id number] DUC: 12/06/[address]: Tomi Reyes MD REQ: [id number] RECD: 12/06/17 STATUS: ISHMAEL BENITEZ DR: Marci Deluna MD _ SOURCE: URINE SPDESC: ORDERED: Urine Culture Procedure Result Reported Site Urine Culture Final 12/08/17- 0807 ML No growth of clinically significant organisms * ML - MAIN LAB ([facility]) . END OF REPORT * ML=Testing performed at Main Lab DEPARTMENT OF PATHOLOGY, [address] [place] [address] Zachary Hammond M.D. Director [facility] # [id number] 4 Because ethnic data is not always readily [...] 15-29 5 Kidney failure <15 (or dialysis) 5 <5.0 Negative 5.0 - 25.0 Indeterminate (Repeat testing recommended after 72 hours) >25.0 Positive Perimenopausal women can display HCG levels of up to 20 mIU/mL 6 SEE RESULT BELOW Name: NAHOMI DÍAZ : [address]: Dodie Leon Acct: [id number] Unit: [id number] AGE: 46 Location: [facility] Re11/25/17 SEX: F Status: REG REF SPEC: [id number] DUC: 11/25/17-[address]: Dodie Leon REQ: [id number] RECD: 11/26/17 STATUS: ISHMAEL BENITEZ DR: Marci Deluna MD _ SOURCE: URINE SPDESC: ORDERED: Urine Culture COMMENTS: [id number] Urine Source: Random Procedure Result Reported Site Urine Culture Final 11/27/17- 1352 ML No growth of clinically significant organisms * ML - MAIN LAB ([facility]) . END OF REPORT * ML=Testing performed at Main Lab DEPARTMENT OF PATHOLOGY, [address] [place] [address] Zachary Hammond M.D. Director [facility] # [id number] 7 SEE RESULT BELOW Name: NAHOMI DÍAZ : [address]: Marci Deluna MD Acct: [id number] Unit: [id number] AGE: 46 Location: [facility] Re11/16/17 SEX: F Status: REG REF SPEC: [id number] DUC: 11/16/[address]: Marci Deluna MD REQ: [id number] RECD: 11/16/17 STATUS: COMP _ SOURCE: URINE SPDESC: ORDERED: Urine Culture COMMENTS: [id number] Procedure Result Reported Site Urine Culture Final 11/18/17- 0940 ML No growth of clinically significant organisms * ML - MAIN LAB ([facility]) . END OF REPORT * ML=Testing performed at Main Lab DEPARTMENT OF PATHOLOGY, [address] [place] [address] Zachary Hammond M.D. Director [facility] # [id number] 8 FASTING 10 HOUR 9 Because ethnic data is not always readily [...] 15-29 5 Kidney failure <15 (or dialysis) 10 Desirable: <150 Borderline High: 150-199 High: 200-499 Very High: >500 11 Desirable: <200 Borderline High: 200-239 High: >239 12 Low: <40 Desirable: 40-60 High: >60 13 Desirable: <100 Near Optimal: 100-129 Borderline High: 130-159 High: 160-189 Very High: >189 14 [id number] 15 SEE RESULT BELOW Name: NAHOMI DÍAZ : [address]: Ector Juarez MD Acct: [id number] Unit: [id number] AGE: 46 Location: [facility] Re05/04/17 SEX: F Status: DEP REF SPEC: [id number] DUC: 05/04/[address] [facility] [address]: Ector Juarez MD REQ: [id number] RECD: 05/04/171225 STATUS: NERISSA BENITEZ DR: Marci Deluna MD _ ORDERED: LEVEL 4 COMMENTS: [id number] FINAL DIAGNOSIS Colon, rectum, biopsy: -- Hyperplastic [...] performed at Main Lab DEPARTMENT OF PATHOLOGY, [address] [place] [address] Zachary Hammond M.D. Director [facility] # [id number] 16 SEE RESULT BELOW Name: NAHOMI DÍAZ : [address]: Camilla Estrada NP Acct: [id number] Unit: [id number] AGE: 46 Location: [facility] Re01/19/17 SEX: F Status: REG REF SPEC: [id number] DUC: 01/19/17-[address] [facility] [address]: Camilla Estrada NP REQ: [id number] RECD: 01/19/17 STATUS: COMP _ SOURCE: URINE [facility]: ORDERED: Urine Culture COMMENTS: [id number] Urine Source: Random Procedure Result Reported Site Urine Culture Final 01/21/17- 0856 ML No growth of clinically significant organisms * ML - MAIN LAB ([facility]) . END OF REPORT * ML=Testing performed at Main Lab DEPARTMENT OF PATHOLOGY, [address] [place] [address] Zachary Hammond M.D. Director [facility] # [id number] 17 Desirable <150 Borderline high 150-199 High 200-499 Very High >500 18 Desirable <200 Borderline high 200-239 High >239 19 Low <40 Desirable: 40-60 High: >60 20 Desirable: <100 mg/dL Near Optimal: 100-129 mg/dL Borderline High: 130-159 mg/dL High: 160-189 mg/dL Very High: >189 mg/dL 21 FASTING 12 HOUR 22 Desirable <150 Borderline high 150-199 High 200-499 Very High >500 23 Desirable <200 Borderline high 200-239 High >239 24 Low <40 Desirable: 40-60 High: >60 25 Desirable: <100 mg/dL Near Optimal: 100-129 mg/dL Borderline High: 130-159 mg/dL High: 160-189 mg/dL Very High: >189 mg/dL 26 FASTING 10 HOUR 27 The World Health Organization (WHO) Hepatitis B Immunoglobulin 1st International Reference Preparation (1976): The accepted criteria for immunity to HBV is anti-HBs activity greater than or equal to 10 mIU/mL. An Index Value of 1.00 is equivalent to 10 mIU/mL. Samples with an Index Value of 1.00 or greater are considered reactive (protective) in accordance with the CDC guidelines. 28 Test Performed by: [facility] - [address] [address] Ortho Tech: Lonnie King III, M.D. 29 FASTING 10 HOUR 30 FASTING 10 HOUR 31 Desirable <150 Borderline high 150-199 High 200-499 Very High >500 32 Desirable <200 Borderline high 200-239 High >239 33 Low <40 Desirable: 40-60 High: >60 34 Desirable <100 Near Optimal 100-129 Borderline high 130-159 High 160-189 Very High >189 35 Serologic response to B. burgdorferi infection is not detected, but cannot rule out early infection during which low or undetectable antibody levels to B. burgdorferi may be present. If clinically indicated, a new serum specimen should be submitted in 7-14 days. Test Performed by: [facility] - [address] [address] Ortho Tech: Lonnie King III, M.D. 36 RUN DATE: 01/29/13 [facility] LAB LIVE PAGE 1 RUN TIME: [address] [place] [address] Specimen Inquiry Name: NAHOMI SANFORD : [address]: Namita Donohue NP Acct: [id number] Unit: [id number] AGE: 42 Location: [facility] Re01/27/13 SEX: F Status: REG REF SPEC: [id number] DUC: 01/27/13-[address]: Namita Donohue NP REQ: [id number] RECD: 01/27/13 STATUS: COMP _ SOURCE: THROAT SPDESC: ORDERED: Throat Culture QUERIES: Med[employer] Number [id number] Procedure Result Verified Site Throat Culture Final 01/29/13- 1205 ML Organism 1 NORMAL QUINCY Quantity 3+ END OF REPORT * ML=Testing performed at Main Lab DEPARTMENT OF PATHOLOGY, [address] [place] [address] Zachary Hammond M.D. Director [facility] Permit #[id number] 37 Anion gap measurement may be of limited value in the presence of any alkalosis, especially in a combined acid base disorder. . 38 A metabolite of Naproxen, O-desmethylnaproxen, has been shown to interfere with the Jendrassik-Kremmling method for measuring total bilirubin. Samples from patients who have taken Naproxen have shown spurious elevation in total bilirubin levels. 39 Because ethnic data is not always readily [...] 15-29 5 Kidney failure <15 (or dialysis) 40 CHOLESTEROL INTERPRETATION: Desirable: Less than 200 MG/DL Borderline-High Risk: 200-239 MG/DL High-Risk: 240 MG/DL and over 41 HDL INTERPRETATION: Undesirable: High Risk: Less than 40 MG/DL Desirable: Low Risk: Greater than 60 MG/DL 42 LDL INTERPRETATION: Low Risk Optimal Level: LDL Less than 100 MG/DL Near or Above Optimal: LDL 100-129 MG/DL Borderline High Risk: LDL 130-159 MG/DL High Risk: LDL 160-189 MG/DL Very High Risk: LDL Greater than 189 MG/DL 43 It is recognized that currently available assays for the detection of antibodies to HIV-1 and/or HIV-2 may not detect all infected individuals. HIV antibodies may be undetectable in some stages of the infection and in some clinical conditions. The performance of this assay has not been established for populations of infants or children. Assayed by Chemiluminescence Microparticle Immunoassay on the Don Advia Centaur CP. Values obtained with different methods or kits cannot be used interchangeably.The diagnostic specificity of the ADVIA Centaur 1/O/2 Enhanced assay in the low risk population was 99.90% (6052/6058) with a 95% confidence interval of 99.78 to 99.96%. Procedures Date CPT Code Description Status 04/14/2018 Mammogram Completed 10/22/2017 52457 Holter Monitor Review (24 hr)dr review & interp only Completed 10/18/2017 76309 ECG Monitor/Recording W/Visual Superimposition Scanning Completed 05/04/2017 Colonoscopy Completed 04/08/2017 Mammogram Completed 09/07/2016 25687 ECHO Stress Test Incl Perf Contiuous ekg Monitoring Completed W/Phys Superv 09/07/2016 48073 ECHO Stress Test Incl Perf Contiuous ekg Monitoring Completed W/Phys Superv 07/27/2016 45954 EKG Tracing & Interpretation Completed 04/06/2016 Mammogram Completed 04/05/2015 Mammogram Completed 04/04/2014 Mammogram Completed 03/11/2012 Colonoscopy Completed Encounters Type Date Location Provider CPT E/M Dx Office Visit 07/06/2018 [facility] Camilla Estrada, N.P. 14794 J01.90 10:00a - [place] Office Visit 06/08/2018 [facility] Camilla Estrada N.P. 95942 R10.10 11:20a - [place] Office Visit 04/22/2018 [facility] Marci Deluna 38090 R03.0 10:00a - [place] Cho Office Visit 02/28/2018 [facility] Marci Deluna 36185 F41.9 1:00p - [place] Cho Office Visit 02/18/2018 [facility] Internal Zachariah Deluna 47913 F41.9 3:20p - [place] M.D. Office Visit 01/06/2018 [facility] Marci Deluna, 89840 R10.2 3:40p - [place] Cho R05 R03.0 Office Visit 11/16/2017 2:20p [facility] Marci Deluna 88975 N39.0 - [place] M.DElzbieta Office Visit 10/08/2017 9:00a [facility] Dominick Wright, THREAD SPOOLER 76887 J06.9 - [place] R73.01 R00.2 Z13.220 K21.9 Office Visit 09/06/2017 3:00p [facility] Marci Deluna 71535 Z00.00 - [place] Tammie R63.5 Office Visit 06/29/2017 2:40p [facility] Camilla Estrada, N.P. 85926 R10.32 - [place] Office Visit 01/19/2017 11:20a [facility] Camilla Estrada, N.P. 30738 R10.30 - [place] M46.1 Office Visit 11/26/2016 9:00a [facility] - [place] A [address] I10 [place] R63.5 Office Visit 07/27/2016 8:40a [facility] Marci Deluna 55454 R63.5 - [place] Cho R06.02 Office Visit 03/26/2016 1:20p [facility] Marci Deluna 68783 Z00.00 - [place] Tammie Office Visit 02/21/2016 2:20p [facility] Marci Deluna 32296 J06.9 - [place] M.Eladia Office Visit 07/22/2015 2:40p [facility] Marci Deluna 48089 783.1 - [place] M.DElzbieta Office Visit 05/09/2015 1:00p [facility] Marci Deluna 39071 783.1 - [place] M.Eladia Office Visit 05/02/2014 10:40a [facility] Swetha Mtz M.D. 83499 V70.0 - [place] 729.4 Office Visit 01/02/2014 4:00p [facility] Marci Deluna 27265 465.9 - [place] M.Eladia Office Visit 09/06/2013 3:20p [facility] Swetha Mtz M.D. 45610 683 - [place] V04.81 V70.4 Office Visit 06/28/2013 9:40a [facility] - Swetha Mtz M.D. 91439 789.07 [place] 300.00 Office Visit 04/21/2013 3:40p [facility] - Swetha Mtz M.D. 77079 784.0 [place] 388.8 300.00 Office Visit 03/29/2013 4:00p [facility] Swetha Mtz M.D. 80959 995.3 - [place] Office Visit 01/27/2013 3:30p [facility] Namita Donohue, N.P. 68569 461.1 - [place] 462 Office Visit 10/27/2012 3:40p [facility] Timmy Cruz, 21562 465.9 - [place] Cho Office Visit 08/26/2012 4:00p [facility] Swetha Mtz M.D. 90336 300.00 - [place] Office Visit 08/08/2012 4:20p [facility] Swetha Mtz M.D. 54388 300.00 - [place] 784.0 Office Visit 07/29/2012 11:00a [facility] Swetha Mtz M.D. 03298 388.8 [place] Office Visit 07/15/2012 2:40p [facility] Swetha Mtz M.D. 97117 300.00 [place] Office Visit 04/26/2012 1:40p [facility] Internal Medicine Swetha Mtz M.D. 98737 V17.49 [place] 272.0 278.00 789.04 V06.1 V73.99 Plan of Care Future Appointment(s):07/19/2018 9:00 am - Nurse Visit A at [facility]10/21/2018 9:20 am - Marci Deluna M.D. at [facility]07/15/2018 - Camilla Estrada N.P.R05 CoughNew Medication:Flovent HFA 110 mcg/ActVentolin HFA 108(90 Base) mcg/ActNew Xrays: Chest PA & Lat 2 VWSComments:You have an asthmatic bronchitis. I want you to finish the steroid tablets and antibiotic.I have prescribed a steroid in haler for you, Flovent. Take 2 inhalations, twice daily for the next 4 weeks. I also prescribed a Ventolin inhaler for you, use this as needed if you feel short of breath or can't stop coughing. I have ordered a chest Xray, I will contact you with your results.
--- OUTSIDE RECORDS SUMMARY | 2018-07-17 15:20 | XMS REPORT ---
:1970 External Reference #:[id number] Author Organization [employer] Address [address] [address] Phone [phone] Care Team Providers Name Role Phone Marci Deluna MD Primary Care Physician Unavailable Payers Type Date Identification Numbers Payment Provider Subscriber Commercial Effective: Policy Number: BS Chilango Nahomi 2014 [id number] ColeRadhaJalen PayID: [id number] [address] [address] [place] [address] Medigap Part B Effective: Policy Number: BS Chilango Varma 2011 [id number] Expires: 2012 PayID: [id number] [address] [address] [place] [address] Problems Date Description Provider Status Onset: 04/26/2012 FH: Cardiovascular disease Swetha Mtz M.D. 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 02/18 x 2 weeks /2017 Omeprazole 10/[address] 20mg 30cap 1 by mouth K21.9 Dominick s once daily Kyle, AUDIO PRODUCTION MANAGER - 02/18 No Active 05/09 Hx Unknown [...] # [id number] Given 08/26/2016 Flu Vaccine NOS 33074 Given 09/06/2013 Flu Vaccine Split Virus Preservative Free For [id number] Indiv 3Yr Older 40628 Given 04/26/2012 Tdap - Tetanus/Diptheria/Acellular Pertussis [id number] Vital Signs Date Vital Result Comment 07/15/2018 [...] Color Yellow Urine Appearance Cloudy Urine Specific [place] 1.027 1.010-1.030 Urine pH 5.0 5-9 Urine [...] 7 Sensitivities Ua Routine 11/16/2017 Ua Specific [place] 1.025 Ua PH 5 Ua Color yellow [...] BELOW Ua Routine 01/19/2017 Ua Specific 1.015 [place] Ua PH 7 Ua Color ida Ua [...] [address]: Gabrielle Shirley MD Acct: [id number] Unit: [id number] AGE: 47 Location: [facility] Re06/24/18 SEX: F Status: REG REF SPEC: [id number] DUC: 06/24/18-1509 [facility] DR: Gabrielle Shirley MD REQ: [id number] RECD: 06/27/18-1226 STATUS: NERISSA BENITEZ DR: Marci Deluna MD _ ORDERED: TP IMAGE ANALYS, HPV/Thin Prep COMMENTS: [id number] Negative for Intraepithelial lesion or Malignancy Date [...] and Reported on: JOSE R Garcia (ASCP) [id number] This Pap test was evaluated with the assistance of the BiorasisPrep Test Imaging System. Due to cytologic findings at the clerk general microscope, comprehensive manual rescreening by a Grant Administrator may be required. The Pap Smear is [...] years. END OF REPORT DEPARTMENT OF PATHOLOGY, [address] [place] [address] Zachary Hammond M.D. Director [facility] # [id number] 2 [facility] Severe Sepsis and Septic Shock Management Bundle Measure requires all lactic acids initially measuring >2.0 mmol/L be repeated. 3 SEE RESULT BELOW Name: NAHOMI DÍAZ : [address]: Tomi Reyes MD Acct: [id number] Unit: [id number] AGE: 47 Location: ED Re12/06/17 SEX: F Status: DEP ER SPEC: [id number] DUC: 12/06/[address]: Tomi Reyes MD REQ: [id number] RECD: 12/06/17 STATUS: ISHMAEL BENITEZ DR: Marci Deluna MD _ SOURCE: URINE SPDESC: ORDERED: Urine Culture Procedure Result Reported Site Urine Culture Final 12/08/17- 0807 ML No growth of clinically significant organisms * ML - MAIN LAB ([facility]) . END OF REPORT * ML=Testing performed at Main Lab DEPARTMENT OF PATHOLOGY, [address] [place] [address] Zachary Hammond M.D. Director [facility] # [id number] 4 Because ethnic data is not always [...] : [address]: Dodie Leon Acct: [id number] Unit: [id number] AGE: 46 Location: [facility] Re11/25/17 SEX: F Status: REG REF SPEC: [id number] DUC: 11/25/17-[address]: Dodie Leon REQ: [id number] RECD: 11/26/17 STATUS: ISHMAEL BENITEZ DR: Marci Deluna MD _ SOURCE: URINE SPDESC: ORDERED: Urine Culture COMMENTS: [id number] Urine Source: Random Procedure Result Reported Site Urine Culture Final 11/27/17- 1352 ML No growth of clinically significant organisms * ML - MAIN LAB ([facility]) . END OF REPORT * ML=Testing performed at Main Lab DEPARTMENT OF PATHOLOGY, [address] [place] [address] Zachary Hammond M.D. Director [facility] # [id number] 7 SEE RESULT BELOW Name: NAHOMI DÍAZ : [address]: Marci Deluna MD Acct: [id number] Unit: [id number] AGE: 46 Location: [facility] Re11/16/17 SEX: F Status: REG REF SPEC: [id number] DUC: 11/16/[address]: Marci Deluna MD REQ: [id number] RECD: 11/16/17 STATUS: COMP _ SOURCE: URINE SPDESC: ORDERED: Urine Culture COMMENTS: [id number] Procedure Result Reported Site Urine Culture Final 11/18/17- 0940 ML No growth of clinically significant organisms * ML - MAIN LAB ([facility]) . END OF REPORT * ML=Testing performed at Main Lab DEPARTMENT OF PATHOLOGY, [address] [place] [address] Zachary Hammond M.D. Director [facility] # [id number] 8 FASTING 10 HOUR 9 Because ethnic [...] 130-159 High: 160-189 Very High: >189 14 [id number] 15 SEE RESULT BELOW Name: NAHOMI DÍAZ : [address]: Ector Juarez MD Acct: [id number] Unit: [id number] AGE: 46 Location: [facility] Re05/04/17 SEX: F Status: DEP REF SPEC: [id number] DUC: 05/04/17 [facility] DR: Ector Juarez MD REQ: [id number] RECD: 05/04/171225 STATUS: NERISSA BENITEZ DR: Marci Deluna MD _ ORDERED: LEVEL 4 COMMENTS: [id number] FINAL DIAGNOSIS Colon, rectum, biopsy: -- Hyperplastic [...] performed at Main Lab DEPARTMENT OF PATHOLOGY, [address] [place] [address] Zachary Hammond M.D. Director [facility] # [id number] 16 SEE RESULT BELOW Name: NAHOMI DÍAZ : [address]: Camilla Estrada NP Acct: [id number] Unit: [id number] AGE: 46 Location: [facility] Re01/19/17 SEX: F Status: REG REF SPEC: [id number] DUC: 01/19/17-1138 [facility] DR: Camilla Estrada NP REQ: [id number] RECD: 01/19/17 STATUS: COMP _ SOURCE: URINE [facility]: ORDERED: Urine Culture COMMENTS: [id number] Urine Source: Random Procedure Result Reported Site Urine Culture Final 01/21/17- 0856 ML No growth of clinically significant organisms * ML - MAIN LAB ([facility]) . END OF REPORT * ML=Testing performed at Main Lab DEPARTMENT OF PATHOLOGY, [address] [place] [address] Zachary Hammond M.D. Director [facility] # [id number] 17 Desirable <150 Borderline high 150-199 High [...] the CDC guidelines. 28 Test Performed by: [facility] - [address] [address] Sliver Lap Machine Tender: Lonnie King III, M.D. 29 FASTING 10 [...] submitted in 7-14 days. Test Performed by: [facility] - [address] [address] Sliver Lap Machine Tender: Lonnie King III, M.D. 36 RUN DATE: 01/29/13 [facility] LAB LIVE PAGE 1 RUN TIME: [address] [place] [address] Specimen Inquiry Name: NAHOMI SANFORD : [address]: Namita Donohue NP Acct: [id number] Unit: [id number] AGE: 42 Location: [facility] Re01/27/13 SEX: F Status: REG REF SPEC: [id number] DUC: 01/27/13-[address]: Namita Donohue NP REQ: [id number] RECD: 01/27/13 STATUS: COMP _ SOURCE: THROAT SPDESC: ORDERED: Throat Culture QUERIES: Medent Number [id number] Procedure Result Verified Site Throat Culture Final 01/29/13- 1205 ML Organism 1 NORMAL QUINCY Quantity 3+ END OF REPORT * ML=Testing performed at Main Lab DEPARTMENT OF PATHOLOGY, [address] [place] [address] Zachary Hammond M.D. Director [facility] Permit #[id number] 37 Anion gap measurement may be of limited value in the presence of any alkalosis, especially in a combined acid base disorder. . 38 A metabolite of Naproxen, O-desmethylnaproxen, has been shown to interfere with the [place] method for measuring total bilirubin. Samples from [...] Code Description Status 04/14/2018 Mammogram Completed 10/22/2017 73829 Holter Monitor Review (24 hr)dr review & interp only Completed 10/18/2017 30313 ECG Monitor/Recording W/Visual Superimposition Scanning Completed 05/04/2017 Colonoscopy Completed 04/08/2017 Mammogram Completed 09/07/2016 39374 ECHO Stress Test Incl Perf Contiuous ekg Monitoring Completed W/Phys Superv 09/07/2016 01594 ECHO Stress Test Incl Perf Contiuous ekg Monitoring Completed W/Phys Superv 07/27/2016 05809 EKG Tracing & Interpretation Completed 04/06/2016 Mammogram Completed 04/05/2015 Mammogram Completed 04/04/2014 Mammogram Completed 03/11/2012 Colonoscopy Completed Encounters Type Date Location Provider CPT E/M Dx Office Visit 07/06/2018 [facility] Internal Medicine Camilla Estrada, N.P. 40561 J01.90 10:00a - [place] Office Visit 06/08/2018 [facility] Internal Medicine Camilla Estrada N.P. 79960 R10.10 11:20a - [place] Office Visit 04/22/2018 [facility] Internal Medicine Marci Deluna 47191 R03.0 10:00a - [place] Cho Office Visit 02/28/2018 [facility] Internal Medicine Marci Deluna 75203 F41.9 1:00p - [place] Cho Office Visit 02/18/2018 [facility] Internal Zachariah Deluna 44445 F41.9 3:20p - [place] M.D. Office Visit 01/06/2018 [facility] Internal Medicine Marci Deluna, 01639 R10.2 3:40p - [place] Cho R05 R03.0 Office Visit 11/16/2017 2:20p [facility] Internal Medicine Marci Deluna 89875 N39.0 - [place] M.DElzbieta Office Visit 10/08/2017 9:00a [facility] Internal Medicine Dominick Wright, AUDIO PRODUCTION MANAGER 01686 J06.9 - [place] R73.01 R00.2 Z13.220 K21.9 Office Visit 09/06/2017 3:00p [facility] Internal Medicine Marci Deluna 58732 Z00.00 - [place] Tammie R63.5 Office Visit 06/29/2017 2:40p [facility] Internal Medicine Camilla Estrada, N.P. 82222 R10.32 - [place] Office Visit 01/19/2017 11:20a [facility] Internal Medicine Camilla Estrada, N.P. 60493 R10.30 - [place] M46.1 Office Visit 11/26/2016 9:00a [facility] Internal Medicine - [place] A 47[address] I10 [place] R63.5 Office Visit 07/27/2016 8:40a [facility] Internal Medicine Marci Deluna 25968 R63.5 - [place] Cho R06.02 Office Visit 03/26/2016 1:20p [facility] Internal Medicine Marci Deluna 94998 Z00.00 - [place] Tammie Office Visit 02/21/2016 2:20p [facility] Internal Medicine Marci Deluna 51163 J06.9 - [place] M.Eladia Office Visit 07/22/2015 2:40p [facility] Internal Medicine Marci Deluna 14411 783.1 - [place] M.DElzbieta Office Visit 05/09/2015 1:00p [facility] Internal Medicine Marci Deluna 34423 783.1 - [place] M.Eladia Office Visit 05/02/2014 10:40a [facility] Internal Medicine Swetha Mtz M.D. 53610 V70.0 - [place] 729.4 Office Visit 01/02/2014 4:00p [facility] Internal Medicine Marci Deluna 22314 465.9 - [place] M.Eladia Office Visit 09/06/2013 3:20p [facility] Internal Medicine Swetha Mtz M.D. 56955 683 - [place] V04.81 V70.4 Office Visit 06/28/2013 9:40a [facility] Internal Medicine - Swetha Mtz M.D. 84132 789.07 [place] 300.00 Office Visit 04/21/2013 3:40p [facility] Internal Medicine - Swetha Mtz M.D. 69040 784.0 [place] 388.8 300.00 Office Visit 03/29/2013 4:00p [facility] Internal Medicine Swetha Mtz M.D. 52373 995.3 - [place] Office Visit 01/27/2013 3:30p [facility] Internal Medicine Namita Donohue, N.P. 31527 461.1 - [place] 462 Office Visit 10/27/2012 3:40p [facility] Internal Medicine Timmy Cruz, 04012 465.9 - [place] Cho Office Visit 08/26/2012 4:00p [facility] Internal Medicine Swetha Mtz M.D. 68182 300.00 - [place] Office Visit 08/08/2012 4:20p [facility] Internal Medicine Swetha Mtz M.D. 46755 300.00 - [place] 784.0 Office Visit 07/29/2012 11:00a [facility] Internal [facility] Swetha Mtz M.D. 39819 388.8 [place] Office Visit 07/15/2012 2:40p [facility] Internal Medicine Swetha Mtz M.D. 52612 300.00 [place] Office Visit 04/26/2012 1:40p [facility] Internal Medicine Swetha Mtz M.D. 77067 V17.49 [place] 272.0 278.00 789.04 V06.1 V73.99 Plan of Care Future Appointment(s):07/19/2018 9:00 am - Nurse Visit A at [facility]10/21/2018 9:20 am - Marci Deluna M.D. at [facility]07/15/2018 - Camilla Estrada N.P.R05 CoughNew Medication:Flovent HFA [...]
--- OUTSIDE RECORDS SUMMARY | 2018-07-17 15:21 | XMS REPORT ---
:1970 External Reference #:[id number] Author Organization [facility] [employer] Address [address] [facility] [place] [address] Phone [phone] Care Team Providers Name Role Phone Marci Deluna MD Primary Care Physician Unavailable Payers Type Date Identification Numbers Payment Provider Subscriber Commercial Effective: Policy Number: BS Chilango Nahomi 2014 [id number] ColeRadhaJalen PayID: [id number] [address] [address] [place] [address] Medigap Part B Effective: Policy Number: BS Chilango Varma 2011 [id number] Expires: 2012 PayID: [id number] [address] [address] [place] [address] Problems Date Description Provider Status Onset: 04/26/2012 FH: Cardiovascular disease Swetha Mtz M.D. 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 - twice a day 07/16 for Guaifenesin-Cod 07/01 Active Solution 100-10mg/ 120ml 5- 5ML milliliters Cotton, every 6 M.D. hours as needed Flonase Allergy 06/27 Active Suspension 50mcg/Act 1unit Every Day Unknown Relief s Tessalon Perles 06/27 Active Capsules 100mg 21cap Three Times s Daily Advil Active Capsules 200mg as needed Doxycycline 06/27 Hx Capsules 100mg 20cap Twice Daily Unknown s - 07/06 Ranitidine HCL 06/08 Hx Tablets 150mg 60tab take one R10.10 s tablet by Varn, N.P. - mouth twice 07/06 a Azithromycin 10/26 Hx Tablets 250mg 6tabs 2 tabs by Dominick mouth every Kyle, TARE MAN - day x1 day, 10/30 1 tab by /2016 mouth every day x 4 days Fluticasone 10/08 Hx Suspension 50mcg/Act 16uni 2 sprays J06.9 Dominick ts each Kyle, TARE MAN - nostril qd. 02/18 x 2 weeks Omeprazole 10/[address] 20mg 30cap 1 by mouth K21.9 Dominick s once daily Kyle, TARE MAN - 02/18 No Active 05/09 Hx Unknown Medications /2014 - 09/06 Tamiflu 01/11 Hx Capsules 75mg 10cap 1 tab by s mouth once Cotton, - daily for M.D. 01/22 10 No Active 01/27 Hx Unknown Medications /2012 - 01/27 Doxycycline 01/[address] 100mg 14tab 100 mg 461.1 Namita Hyclate /2012 s orally Charanjit, - twice daily N.P. [...] Tablets 250mg 1Pack as per Timmy Martin /2011 directions Radha Cruz M.D. 01/27 Codeine 10/27 Hx Liquid 300-10mg/ 4oz 10cc q 4 Timmy Martin Phosphate/ 5ML hrs prn lucy Cruz - cough Tammie 01/27 Lexapro 08/08 Hx Tablets 10mg 60tab 1 tablet 300.00 Wsetha /2011 s daily for 1 Mtz, - week, then M.DElzbieta 10/27 2 tablets /2011 daily Citracal Hx Tablets 315-250mg 2 tablet Unknown Maximum /0000 -Unit daily - 01/27 Align Probiotic Hx 4mg po qd Unknown /0000 - 01/27 Probiotic 0000 Hx Capsules 30cap once a day Unknown Acidophilus /0000 s prn - 05/09 Immunizations CPT Code Status Date Vaccine Lot # [id number] Given 08/26/2016 Flu Vaccine NOS [id number] Given 09/06/2013 Flu Vaccine Split Virus Preservative Free For [id number] Indiv [id number] Older [id number] Given 04/26/2012 Tdap - Tetanus/Diptheria/Acellular Pertussis [id number] Vital Signs Date Vital Result Comment 07/06/2018 Height 66 inches 5'6" Weight 259.00 [...] 0-2 Nucleated Red Blood Cells % 0 Urine Culture And Sensitivities 12/06/2017 Urine Culture SEE RESULT BELOW 2 Urinalysis Profile 12/06/2017 Urine Color Yellow Urine Appearance Cloudy Urine Specific [place] 1.027 1.010-1.030 Urine pH 5.0 5-9 Urine Urobilinogen Negative Negative Urine Ketones Negative Negative Urine Protein Negative Negative Urine Leukocytes 2+ Negative Urine Blood 2+ Negative Urine Nitrite Negative Negative Urine Bilirubin Negative Negative Urine Glucose Negative Negative Urine White Blood Cell Trace(0-5/hpf) Absent Urine Red Blood Cell 1+(3-5/hpf) Absent Urine Bacteria 1+ Absent Urine Squamous Epithelial Cell Present Absent Laboratory test finding 12/06/2017 Lactic Acid 0.9 mmol/L 0.5-2.0 3 Comp Metabolic Panel 12/06/2017 Sodium 133 mmol/L [...] ng/mL <0.04 HCG < 0.60 mIU/mL 5 Urine Culture And 11/25/2017 Urine Culture SEE RESULT BELOW 6 Sensitivities Urine Culture And 11/16/2017 Urine Culture SEE RESULT BELOW 7 Sensitivities Ua Routine 11/16/2017 Ua Specific [place] 1.025 Ua PH 5 Ua Color yellow [...] BELOW Ua Routine 01/19/2017 Ua Specific 1.015 [place] Ua PH 7 Ua Color ida Ua [...] 0.70 26, 27 Laboratory test finding 05/07/2014 Glucose 87 mg/dL 70-100 26, 28 TSH (Thyroid Stimulating Horm) 2.05 IU/mL 0.34-5.60 26, 29 Lipid Profile (Trig/Chol/HDL) 05/07/2014 Triglycerides 72 mg/dL 26, 30 Cholesterol 160 mg/dL 26, 31 HDL Cholesterol 47.1 mg/dL 26, 32 LDL Cholesterol 99 mg/dL 26, 33 Laboratory test finding 05/07/2014 Hepatitis A Antibody Negative Negative 26, 34 Total Laboratory test finding 06/29/2013 Lyme Disease Serology Negative Negative 35 Laboratory test finding 01/27/2013 Throat Culture (SEE NOTE) 36 Laboratory test finding 01/27/2013 Rapid Strep A [...] [address]: Gabrielle Shirley MD Acct: [id number] Unit: [id number] AGE: 47 Location: [facility] Re06/24/18 SEX: F Status: REG REF SPEC: [id number] DUC: 06/24/18-[address] [facility] [address]: Gabrielle Shirley MD REQ: [id number] RECD: 06/27/18 STATUS: NERISSA BENITEZ DR: Marci Deluna MD _ ORDERED: TP IMAGE ANALYS, HPV/Thin Prep COMMENTS: [id number] Negative for Intraepithelial lesion or Malignancy Date [...] Specimen: 04/06/16 Signed by and Reported on: Deshaun Lopez CT (ASCP) 1444 This Pap test was evaluated with the assistance of the My Dentistp Test Imaging System. Due to cytologic findings at the child psychiatrist microscope, comprehensive manual rescreening by a Tight Barrel Inspector may be required. The Pap Smear is [...] years. END OF REPORT DEPARTMENT OF PATHOLOGY, [address] [place] [address] Zachary Hammond M.D. Director [facility] # [id number] 2 SEE RESULT BELOW Name: NAHOMI DÍAZ : [address]: Tomi Reyes MD Acct: [id number] Unit: [id number] AGE: 47 Location: ED Re12/06/17 SEX: F Status: DEP ER SPEC: [id number] DUC: 12/06/[address] [facility] [address]: Tomi Reyes MD REQ: [id number] RECD: 12/06/17 STATUS: COMP [facility] DR: Marci Deluna MD _ SOURCE: URINE SPDESC: ORDERED: Urine Culture Procedure Result Reported Site Urine Culture Final 12/08/17- 0807 ML No growth of clinically significant organisms * ML - MAIN LAB ([facility]) . END OF REPORT * ML=Testing performed at Main Lab DEPARTMENT OF PATHOLOGY, [address] [place] [address] Zachary Hammond M.D. Director [facility] # [id number] [facility] Severe Sepsis and Septic Shock Management Bundle Measure requires all lactic acids initially measuring >2.0 mmol/L be repeated. 4 Because ethnic data is not always [...] : [address]: Dodie Leon Acct: [id number] Unit: [id number] AGE: 46 Location: [facility] Re11/25/17 SEX: F Status: REG REF SPEC: [id number] DUC: 11/25/17-[address] [facility] [address]: Dodie Leon REQ: [id number] RECD: 11/26/17 STATUS: ISHMAEL BENITEZ DR: Marci Deluna MD _ SOURCE: URINE [facility]: ORDERED: Urine Culture COMMENTS: [id number] Urine Source: Random Procedure Result Reported Site Urine Culture Final 11/27/17- 1352 ML No growth of clinically significant organisms * ML - MAIN LAB ([facility]) . END OF REPORT * ML=Testing performed at Main Lab DEPARTMENT OF PATHOLOGY, [address] [place] [address] Zachary Hammond M.D. Director [facility] # [id number] 7 SEE RESULT BELOW Name: NAHOMI DÍAZ : [address]: Marci Deluna MD Acct: [id number] Unit: [id number] AGE: 46 Location: [facility] Re11/16/17 SEX: F Status: REG REF SPEC: [id number] DUC: 11/16/[address] [facility] [address]: Marci Deluna MD REQ: [id number] RECD: 11/16/17 STATUS: COMP _ SOURCE: URINE SPDESC: ORDERED: Urine Culture COMMENTS: [id number] Procedure Result Reported Site Urine Culture Final 11/18/17- 0940 ML No growth of clinically significant organisms * ML - MAIN LAB ([facility]) . END OF REPORT * ML=Testing performed at Main Lab DEPARTMENT OF PATHOLOGY, [address] [place] [address] Zachary Hammond M.D. Director [facility] # [id number] 8 FASTING 10 HOUR 9 Because ethnic [...] 130-159 High: 160-189 Very High: >189 14 [id number] 15 SEE RESULT BELOW Name: NAHOMI DÍAZ : [address]: Ector Juarez MD Acct: [id number] Unit: [id number] AGE: 46 Location: [facility] Re05/04/17 SEX: F Status: DEP REF SPEC: [id number] DUC: 05/04/17-[address]: Ector Juarez MD REQ: [id number] RECD: 05/04/17-1225 STATUS: NERISSA BENITEZ DR: Marci Deluna MD _ ORDERED: LEVEL 4 COMMENTS: [id number] FINAL DIAGNOSIS Colon, rectum, biopsy: -- Hyperplastic [...] performed at Main Lab DEPARTMENT OF PATHOLOGY, [address] [place] [address] Zachary Hammond M.D. Director [facility] # [id number] 16 SEE RESULT BELOW Name: NAHOMI DÍAZ : [address]: Camilla Estrada NP Acct: [id number] Unit: [id number] AGE: 46 Location: [facility] Re01/19/17 SEX: F Status: REG REF SPEC: [id number] DUC: 01/19/17-[address]: Camilla Estrada NP REQ: [id number] RECD: 01/19/17 STATUS: COMP _ SOURCE: URINE SPDESC: ORDERED: Urine Culture COMMENTS: [id number] Urine Source: Random Procedure Result Reported Site Urine Culture Final 01/21/17- 0856 ML No growth of clinically significant organisms * ML - MAIN LAB ([facility]) . END OF REPORT * ML=Testing performed at Main Lab DEPARTMENT OF PATHOLOGY, [address] [place] [address] Zachary Hammond M.D. Director [facility] # [id number] 17 Desirable <150 Borderline high 150-199 High [...] in accordance with the CDC guidelines. 28 FASTING 10 HOUR 29 FASTING 10 HOUR 30 Desirable <150 Borderline high 150-199 High 200-499 Very High >500 31 Desirable <200 Borderline high 200-239 High >239 32 Low <40 Desirable: 40-60 High: >60 33 Desirable <100 Near Optimal 100-129 Borderline high 130-159 High 160-189 Very High >189 34 Test Performed by: [facility] - [address] [address] Metal Wire Technician: Lonnie King III, M.D. 35 Serologic response to B. burgdorferi infection is not detected, but cannot rule out early infection during which low or undetectable antibody levels to B. burgdorferi may be present. If clinically indicated, a new serum specimen should be submitted in 7-14 days. Test Performed by: [facility] - [address] [address] Metal Wire Technician: Lonnie King III, M.D. 36 RUN DATE: 01/29/13 [facility] LIVE PAGE 1 RUN TIME: [address] [place] [address] Specimen Inquiry Name: COLENAHOMI DE : [address]: Namita Donohue NP Acct: [id number] Unit: [id number] AGE: 42 Location: [facility] Re01/27/13 SEX: F Status: REG REF SPEC: [id number] DUC: 01/27/13-[address]: Namita Donohue NP REQ: [id number] RECD: 01/27/13 STATUS: COMP _ SOURCE: THROAT SPDESC: ORDERED: Throat Culture QUERIES: [employer] Number [id number] Procedure Result Verified Site Throat Culture Final 01/29/13- 1205 ML Organism 1 NORMAL QUINCY Quantity 3+ END OF REPORT * ML=Testing performed at Main Lab DEPARTMENT OF PATHOLOGY, [address] [place] [address] Zachary Hammond M.D. Director [employer] Permit #[id number] 37 Anion gap measurement may be of limited value in the presence of any alkalosis, especially in a combined acid base disorder. . 38 A metabolite of Naproxen, O-desmethylnaproxen, has been shown to interfere with the [place] method for measuring total bilirubin. Samples from [...] Code Description Status 04/14/2018 Mammogram Completed 10/22/2017 36969 Holter Monitor Review (24 hr)dr gutierrez & interp only Completed 10/18/2017 06472 ECG Monitor/Recording W/Visual Superimposition Scanning Completed 05/04/2017 Colonoscopy Completed 04/08/2017 Mammogram Completed 09/07/2016 99340 ECHO Stress Test Incl Perf Contiuous ekg Monitoring Completed W/Phys Superv 09/07/2016 25790 ECHO Stress Test Incl Perf Contiuous ekg Monitoring Completed W/Phys Superv 07/27/2016 13824 EKG Tracing & Interpretation Completed 04/06/2016 Mammogram Completed 04/05/2015 Mammogram Completed 04/04/2014 Mammogram Completed 03/11/2012 Colonoscopy Completed Encounters Type Date Location Provider CPT E/M Dx Office Visit 06/08/2018 [facility] Internal Medicine Camilla Estrada, N.P. 44421 R10.10 11:20a - [facility] Office Visit 04/22/2018 [facility] Internal Medicine Marci Deluna 57754 R03.0 10:00a - [facility] Office Visit 02/28/2018 [facility] Internal Medicine Marci Deluna 75686 F41.9 1:00p - [facility] Office Visit 02/18/2018 [facility] Internal Medicine Marci Deluna 98725 F41.9 3:20p - [facility] Office Visit 01/06/2018 [facility] Internal Medicine Marci Deluna 19713 R10.2 3:40p - [facility] Cho R05 R03.0 Office Visit 11/16/2017 2:20p [facility] Internal Medicine Marci Deluna 49384 N39.0 - [facility] Office Visit 10/08/2017 9:00a [facility] [place] [address] J06.9 - [facility] R73.01 R00.2 Z13.220 K21.9 Office Visit 09/06/2017 3:00p [facility] Internal Medicine Marci Deluna 31653 Z00.00 - [facility] R63.5 Office Visit 06/29/2017 2:40p [facility] Internal Medicine Camilla Estrada, N.P. 66346 R10.32 - [facility] Office Visit 01/19/2017 11:20a [facility] Internal Medicine Camilla Estrada, N.P. 83463 R10.30 - [facility] M46.1 Office Visit 11/26/2016 9:00a [facility] Internal Medicine - [place] A [address] I10 [facility] R63.5 Office Visit 07/27/2016 8:40a [facility] Internal Medicine Marci Deluna, 68500 R63.5 - [facility] Tricia.Eladia R06.02 Office Visit 03/26/2016 1:20p [facility] Internal Medicine Marci Deluna, 96134 Z00.00 - [facility] M.Eladia Office Visit 02/21/2016 2:20p [facility] Internal Medicine Marci Deluna, 16663 J06.9 - [facility] M.Eladia Office Visit 07/22/2015 2:40p [facility] Internal Medicine Marci Mikie, 94223 783.1 - [facility] M.Eladia Office Visit 05/09/2015 1:00p [facility] Internal Medicine Marcigeorge Deluna 29039 783.1 - [facility] M.Eladia Office Visit 05/02/2014 10:40a [facility] Internal Medicine Swetha Mtz M.D. 17820 V70.0 - [facility] 729.4 Office Visit 01/02/2014 4:00p [facility] Internal Medicine Marci Cotton, 25339 465.9 - [facility] MJacqui Office Visit 09/06/2013 3:20p [facility] Internal Medicine Swetha Mtz M.D. 89716 683 - [facility] V04.81 V70.4 Office Visit 06/28/2013 9:40a [facility] Internal Medicine - Swetha Mtz M.D. 35232 789.07 [facility] 300.00 Office Visit 04/21/2013 3:40p [facility] Internal Medicine - Swetha Mtz M.D. 71185 784.0 [facility] 388.8 300.00 Office Visit 03/29/2013 4:00p [facility] Internal Medicine Swetha Mtz M.D. 88338 995.3 - [facility] Office Visit 01/27/2013 3:30p [facility] Internal Medicine Namita Donohue, N.PElzbieta 44116 461.1 - [facility] 462 Office Visit 10/27/2012 3:40p [facility] Internal Medicine Timmy Cruz, 98171 465.9 - [facility] MJacqui Office Visit 08/26/2012 4:00p [facility] Internal Medicine Swetha Mtz M.D. 72792 300.00 - [facility] Office Visit 08/08/2012 4:20p [facility] Internal Medicine Swetha Mtz M.D. 80852 300.00 - [facility] 784.0 Office Visit 07/29/2012 11:00a [facility] Internal [facility] - Swetha Mtz M.D. 31465 388.8 [facility] Office Visit 07/15/2012 2:40p [facility] Internal [facility] - Swetha Mtz M.D. 33922 300.00 [facility] Office Visit 04/26/2012 1:40p [facility] Internal [facility] - Swetha Mtz M.D. 51370 V17.49 [facility] 272.0 278.00 789.04 V06.1 V73.99 Plan of Care Future Appointment(s):07/19/2018 9:00 am - [facility] 9:20 am - Marci Deluna M.D. at [facility]07/06/2018 - Camilla Estrada NMarvinJ01.90 Acute sinusitis, unspecifiedNew Medication:Clarithromycin 500 mgComments:You have a sinus infection. I have prescribed Clarithromycin 500 mg. Take 1 tablet, twice daily, for10 days.Use the Flonase nasal spray, 2 inhalations in each nostril, once daily until you are well.You may take NyQuil to help you sleep.If your symptoms do not improve call the office.
[2018-07-17 15:39] VITALS: BP 154/91
[2018-07-17] MEDS ORDERED: HYDROcodone/ACETAMIN 5-325 MG* 1 TAB PO ONE (15:57)
[2018-07-17] MEDS ORDERED: Ketorolac INJ* 60 MG/2 ML VIAL IM ONE (15:57)
[2018-07-17] MEDS ORDERED: Albuterol/Ipratropium NEB.SOL* Albuterol 2.5 MG/Ipratropium 0.5 MG 3 ML INH ONE (16:12)
--- NOTE | 2018-07-17 16:20 | UC ---
Back Pain HPI - HPI Summary HPI Summary: C/O right sided back pain, severe stabbing pain, worse with coughing, over the last hour. Has had cough going on 2 weeks. On day 6 medrol dose pack. - History of Current Complaint Chief Complaint: UCGeneralIllness Stated Complaint: SEVERE UPPER BACK PAIN Time Seen by Provider: 07/17/18 15:21 Hx Obtained From: Patient Hx Last Menstrual Period: 06/25/18 ?: No Onset/Duration: Sudden Onset, Lasting Hours - 2 Timing: Intermittent, Lasting Seconds - 5 Severity Initially: Severe Severity Currently: Severe Pain Intensity: 9 Back Pain: Is Discrete @ - right middle back at the lower edge of the rib cage. , Radiates To - around into the abdomen. Character: Sharp, Spasmodic Aggravating Factor(s): Movement, Cough Alleviating Factor(s): Rest Associated Signs And Symptoms: Positive: Flank Pain. Negative: Swelling, Redness, Bruising, Fever, Weakness, Numbness, Tingling, Abdominal Pain, Bladder Incontinence, Bowel Incontinence - Allergies/Home Medications Allergies/Adverse Reactions: Allergies Allergy/AdvReac Type Severity Reaction Status Date / Time Penicillins Allergy Rash Verified 07/17/18 15:22 Home Medications: Home Medications Fluticasone HFA 110 mcg(NF) [Flovent HFA 110 mcg(NF)] 2 puff INH BID 07/17/18 [ History Confirmed 07/17/18] PMH/Surg Hx/FS Hx/Imm Hx Previously Healthy: Yes - Surgical History Surgical History: None Surgery Procedure, Year, and Place: April 2017 Colonoscopy - Family History Known Family History: Positive: Cardiac Disease, Hypertension Negative: Diabetes - Social History Occupation: Employed Full-time Lives: With Family Alcohol Use: Occasionally Substance Use Type: None Smoking Status (MU): Never Smoked Tobacco - Immunization History Most Recent Influenza Vaccination: 2016 Review of Systems Respiratory: Cough Cardiovascular: Chest Pain Is Patient Immunocompromised?: No All Other Systems Reviewed And Are Negative: Yes Physical Exam Triage Information Reviewed: Yes Appearance: Well-Appearing, Pain Distress - severe, Obese Vital Signs: Initial Vital Signs Temp 98.5 F 07/17/18 15:27 Pulse 98 07/17/18 15:27 Resp 16 07/17/18 15:27 BP 154/91 07/17/18 15:27 Pulse Ox 97 07/17/18 15:27 Vital Signs Reviewed: Yes Eyes: Positive: Conjunctiva Clear Neck exam: Normal Respiratory: Positive: Lungs clear, Wheezing - expiratory wheeze with coughing. , Other: - Splinting respiration Cardiovascular Exam: Normal Musculoskeletal Exam: Normal Neurological Exam: Normal Psychological Exam: Normal Skin Exam: Normal Back Pain Course/Dx - Differential Dx/Diagnosis Differential Diagnosis/HQI/PQRI: Fracture, Strain, Sprain Provider Diagnoses: Muscular chest wall pain Discharge - Sign-Out/Discharge Documenting (check all that apply): Patient Departure - Discharge Plan Condition: Stable Disposition: HOME Prescriptions: Ketorolac TAB * [Toradol TAB *] 10 mg PO Q6H PRN #20 tab PRN Reason: Pain - Chest predniSONE [Prednisone 20 MG TAB] 20 mg PO DAILY #18 tablet Patient Education Materials: Bronchospasm (ED), Ketorolac (By mouth), How to Use a Metered-Dose Inhaler and a Spacer (ED) Referrals: Marci Deluna MD [Primary Care Provider] - - Billing Disposition and Condition Condition: STABLE Disposition: Home
--- NOTE | 2018-07-17 16:22 | RAD ---
HISTORY: right sided rib pain COMPARISONS: None VIEWS: 4, Frontal view of the chest with frontal and oblique views of the right hemithorax. FINDINGS: There is no displaced rib fracture or pneumothorax. The visualized lungs are clear. Gallstones are noted. IMPRESSION: THERE IS NO DISPLACED RIB FRACTURE OR PNEUMOTHORAX. CHOLELITHIASIS.
== END 2018-07-17 16:57 | disposition home or self-care (01) ==
LOC: UCCORT 15:10
DX: R07.89 Other chest pain (principal); Z88.0 Allergy status to penicillin
CPT/HCPCS: 96372; 99212; A9270-GY; G0463; J1885

== ENCOUNTER 2018-08-06 19:41 | Emergency (ER) | payer BC ==
--- OUTSIDE RECORDS SUMMARY | 2018-08-06 20:24 | XMS REPORT ---
:1970 External Reference #:[id number] Author Organization Public Mobile Address [address] [place] [address] Phone [phone] Care Team Providers Name Role Phone Marci Deluna MD Primary Care Physician Unavailable Payers Type Date Identification Numbers Payment Provider Subscriber Commercial Effective: Policy Number: BS Chilango Nahomi 2014 [id number] ColeRadhaJalen PayID: [id number] [address] [address] [place] [address] Medigap Part B Effective: Policy Number: BS Chilango Varma 2011 [id number] Expires: 2012 PayID: [id number] [address] [address] [place] [address] Problems Date Description Provider Status Onset: 04/26/2012 FH: Cardiovascular disease Swetha Mtz M.D. 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 every 6 hours as needed for pain Flovent HFA 07/15 Active Aerosol 110mcg/Ac 12gm 2 puffs R0 t twice daily Varn, N.P. Ventolin HFA 07/15 Active Aerosol 108(90Bas 18uni 1 to 2 R0 e) ts inhalations Varn, N.P. mcg/Act every 4 hours as needed Guaifenesin-Cod 07/01 Active Solution 100-10mg/ 120ml 5-10 Marci 5ML milliliters Cotton, every 6 M.D. hours as needed Flonase Allergy 06/27 Active Suspension 50mcg/Act 1unit Every Day Unknown Relief s Tessalon Perles 06/27 Active Capsules 100mg 21cap Three Times s Daily Advil Active Capsules 200mg as needed Unknown /0000 Prednisone Active Tablets 20mg 2 tab by Unknown /0000 mouth 5 days Ketorolac Active Tablets 10mg take 1 by Unknown Tromethamine /0000 mouth every 6 hours as needed for pain in chest/ribs Medrol 07/11 Hx TBPK 4mg 21uni 6 by mouth ts day 1, 5 by Varn, N.P. - mouth day 07/17 2, 4 by mouth day 3, 3 by mouth day 4, 2 by mouth day 5, 1 by mouth day 6 Clarithromycin 07/06 Hx Tablets 500mg 20tab take 1 J01.90 s tablet Varn, N.P. - twice a day 07/16 for Doxycycline 06/27 Hx Capsules 100mg 20cap Twice Daily Unknown Hycl s - 07/06 Ranitidine HCL 06/08 Hx Tablets 150mg 60tab take one R10.10 s tablet by Varn, N.P. - mouth twice 07/06 a day /2017 Azithromycin 10/26 Hx Tablets 250mg 6tabs 2 tabs by Dominick mouth every Kyle, PLEATING MACHINE OPERATOR - day x1 day, 10/30 1 tab by mouth every day x 4 days Fluticasone 10/08 Hx Suspension 50mcg/Act 16uni 2 sprays J06.9 Dominick Propionate ts each Kyle, PLEATING MACHINE OPERATOR - nostril qd. 02/18 x 2 weeks /2017 Omeprazole 10/[address] 20mg 30cap 1 by mouth K21.9 Dominick s once daily Kyle, PLEATING MACHINE OPERATOR - 02/18 No Active 05/09 Hx Unknown Medications /2014 - 09/06 Tamiflu 01/11 Hx Capsules 75mg 10cap 1 tab by Marci s mouth once Cotton, - daily for M.D. 01/22 10 /2014 No Active 01/27 Hx Unknown Medications /2012 [...] Namita /2012 each Charanjit, - nostril N.P. 02/04 once daily /2013 Tessalon Perles 01/27 Hx Capsules 100mg 60cap 1 tab po 461.1 Namita /2012 s tid prn Charanjit, - N.P. 01/02 Ibuprofen 01/27 Hx Tablets 400mg 100ta 400 mg po 462 Namita /2012 bs q4-6h; max Charanjit, - 2400 mg/day N.P. 05/09 Zithromax Z-Leo 10/27 Hx Tablets 250mg 1Pack as per Timmy Martin /Piper directions Radha Cruz M.D. 01/27 Codeine 10/27 Hx Liquid 300-10mg/ 4oz 10cc q 4 Timmy Martin Phosphate/ai 5ML hrs prn lucy Cruz - cough M.Eladia 01/27 Lexapro 08/08 Hx Tablets 10mg 60tab [...] # [id number] Given 08/26/2016 Flu Vaccine NOS 26304 Given 09/06/2013 Flu Vaccine Split Virus Preservative Free For [id number] Indiv 3Yr Older 89519 Given 04/26/2012 Tdap - Tetanus/Diptheria/Acellular Pertussis [id number] Vital Signs Date Vital Result Comment 07/18/2018 Height 66 inches 5'6" Weight 255.00 lb Heart Rate 97 /min BP Systolic 150 mmHg BP Diastolic 80 mmHg Body Temperature 98.9 F O2 % BldC Oximetry 98 % BMI (Body Mass Index) 41.2 kg/m2 07/15/2018 Height 66 inches 5'6" Weight 255.00 [...] Color Yellow Urine Appearance Cloudy Urine Specific [place] 1.027 1.010-1.030 Urine pH 5.0 5-9 Urine [...] 7 Sensitivities Ua Routine 11/16/2017 Ua Specific [place] 1.025 Ua PH 5 Ua Color yellow [...] BELOW Ua Routine 01/19/2017 Ua Specific 1.015 [place] Ua PH 7 Ua Color ida Ua [...] Nonreactive 43 1 SEE RESULT BELOW Name: JUVENALAPRILGarcía : [address]: Gabrielle Shirley MD Acct: [id number] Unit: [id number] AGE: 47 Location: [facility] Re06/24/18 SEX: F Status: REG REF SPEC: [id number] DUC: 06/24/18-[address] [facility] [address]: Gabrielle Shirley MD REQ: [id number] RECD: 06/27/18-1226 STATUS: NERISSA BENITEZ DR: Marci Deluna MD _ ORDERED: TP IMAGE ANALYS, HPV/Thin Prep COMMENTS: [id number] Negative for Intraepithelial lesion or Malignancy Date [...] and Reported on: JOSE R Garcia (ASCP) 1444 This Pap test was evaluated with the assistance of the ThinPrep Test Imaging System. Due to cytologic findings at the sales and business development manager microscope, comprehensive manual rescreening by a Senior Product Development Manager may be required. The Pap Smear [...] years. END OF REPORT DEPARTMENT OF PATHOLOGY, [address] [place] [address] Zachary Hammond M.D. Director [facility] # [id number] 2 [facility] Severe Sepsis and Septic Shock Management Bundle Measure requires all lactic acids initially measuring >2.0 mmol/L be repeated. 3 SEE RESULT BELOW Name: NAHOMI DÍAZ : [address]: Tomi Reyes MD Acct: [id number] Unit: [id number] AGE: 47 Location: ED Re12/06/17 SEX: F Status: DEP ER SPEC: [id number] DUC: 12/06/[address]: Tomi Reyes MD REQ: [id number] RECD: 12/06/17 STATUS: COMP RHONA DR: Marci Deluna MD _ SOURCE: URINE SPDESC: ORDERED: Urine Culture Procedure Result Reported Site Urine Culture Final 12/08/17- 07 ML No growth of clinically significant organisms * ML - MAIN LAB ([facility]1) . END OF REPORT * ML=Testing performed at Main Lab DEPARTMENT OF PATHOLOGY, [address] [place] [address] Zachary Hammond M.D. Director [facility] # [id number] 4 Because ethnic data is not always [...] : [address]: Dodie Leon Acct: [id number] Unit: [id number] AGE: 46 Location: [facility] Re11/25/17 SEX: F Status: REG REF SPEC: [id number] DUC: 11/25/17-[address] [facility] [address]: Dodie DE OLIVEIRA C REQ: [id number] RECD: 11/26/17 STATUS: ISHMAEL BENITEZ DR: Marci Deluna MD _ S[facility] ORDERED: Urine Culture COMMENTS: [id number] Urine Source: Random Procedure Result Reported Site Urine Culture Final 11/27/17- 1352 ML No growth of clinically significant organisms * ML - MAIN LAB ([facility]1) . END OF REPORT * ML=Testing performed at Main Lab DEPARTMENT OF PATHOLOGY, [address] [place] [address] Zachary Hammond M.D. Director [facility] # [id number] 7 SEE RESULT BELOW Name: NAHOMI DÍAZ : [address]: Marci Deluna MD Acct: [id number] Unit: [id number] AGE: 46 Location: [facility] Re11/16/17 SEX: F Status: REG REF SPEC: [id number] DUC: 11/16/[address] [facility] [address]: Marci Deluna MD REQ: [id number] RECD: 11/16/17 STATUS: COMP _ SOURCE: URINE SPDESC: ORDERED: Urine Culture COMMENTS: [id number] Procedure Result Reported Site Urine Culture Final 11/18/17- 0940 ML No growth of clinically significant organisms * ML - MAIN LAB ([facility]) . END OF REPORT * ML=Testing performed at Main Lab DEPARTMENT OF PATHOLOGY, [address] [place] [address] Zachary Hammond M.D. Director [facility] # [id number] 8 FASTING 10 HOUR 9 Because ethnic [...] 130-159 High: 160-189 Very High: >189 14 [id number] 15 SEE RESULT BELOW Name: NAHOMI DÍAZ : [address]: Ector Juarez MD Acct: [id number] Unit: [id number] AGE: 46 Location: [facility] Re05/04/17 SEX: F Status: DEP REF SPEC: [id number] DUC: 05/04/[address] [facility] [address]: Ector Juarez MD REQ: [id number] RECD: 05/04/17 STATUS: NERISSA BENITEZ DR: Marci Deluna MD _ ORDERED: LEVEL 4 COMMENTS: [id number] FINAL DIAGNOSIS Colon, rectum, biopsy: -- Hyperplastic [...] performed at Main Lab DEPARTMENT OF PATHOLOGY, [address] [place] [address] Zachary Hammond M.D. Director [facility] # [id number] 16 SEE RESULT BELOW Name: NAHOMI DÍAZ : [address]: Camilla Estrada NP Acct: [id number] Unit: [id number] AGE: 46 Location: [facility] Re01/19/17 SEX: F Status: REG REF SPEC: [id number] DUC: 01/19/17-[address]: Camilla Estrada NP REQ: [id number] RECD: 01/19/17 STATUS: COMP _ SOURCE: URINE SPDESC: ORDERED: Urine Culture COMMENTS: [id number] Urine Source: Random Procedure Result Reported Site Urine Culture Final 01/21/17- 0856 ML No growth of clinically significant organisms * ML - [facility] . END OF REPORT * ML=Testing performed at Main Lab DEPARTMENT OF PATHOLOGY, [address] [place] [address] Zachary Hammond M.D. Director [facility] # [id number] 17 Desirable <150 Borderline high 150-199 High [...] the CDC guidelines. 28 Test Performed by: [address] [address] Resident Inspector: Lonnie King III, M.D. 29 FASTING 10 [...] submitted in 7-14 days. Test Performed by: [facility] - [address] [address] Resident Inspector: Lonnie King III, M.D. 36 RUN DATE: 01/29/13 [facility] LAB LIVE PAGE 1 RUN TIME: [address] [place] [address] Specimen Inquiry Name: NAHOMI SANFORD : [address]: Namita Donohue NP Acct: [id number] Unit: [id number] AGE: 42 Location: [facility] Re01/27/13 SEX: F Status: REG REF SPEC: [id number] DUC: 01/27/13-[address] [facility] [address]: Namita Donohue NP REQ: [id number] RECD: 01/27/13 STATUS: COMP _ SOURCE: THROAT SPDESC: ORDERED: Throat Culture QUERIES: Medent Number [id number] Procedure Result Verified Site Throat Culture Final 01/29/13- 1205 ML Organism 1 NORMAL QUINCY Quantity 3+ END OF REPORT * ML=Testing performed at Main Lab DEPARTMENT OF PATHOLOGY, [address] [place] [address] Zachary Hammond M.D. Director [facility] Permit #[id number] 37 Anion gap measurement may be of [...] Code Description Status 04/14/2018 Mammogram Completed 10/22/2017 47212 Holter Monitor Review (24 hr)dr review & interp only Completed 10/18/2017 14488 ECG Monitor/Recording W/Visual Superimposition Scanning Completed 05/04/2017 Colonoscopy Completed 04/08/2017 Mammogram Completed 09/07/2016 47678 ECHO Stress Test Incl Perf Contiuous ekg Monitoring Completed W/Phys Superv 09/07/2016 78314 ECHO Stress Test Incl Perf Contiuous ekg Monitoring Completed W/Phys Superv 07/27/2016 57625 EKG Tracing & Interpretation Completed 04/06/2016 Mammogram Completed 04/05/2015 Mammogram Completed 04/04/2014 Mammogram Completed 03/11/2012 Colonoscopy Completed Encounters Type Date Location Provider CPT E/M Dx Office Visit 07/15/2018 [facility] Camilla Estrada, N.P. 05764 R05 11:40a - [place] Office Visit 07/06/2018 [facility] Camilla Estrada, N.P. 34142 J01.90 10:00a - [place] Office Visit 06/08/2018 [facility] Camilla Estrada, N.P. 18507 R10.10 11:20a - [place] Office Visit 04/22/2018 [facility] Marci Deluna 45692 R03.0 10:00a - [place] M.Eladia Office Visit 02/28/2018 [facility] Marci Deluna 17846 F41.9 1:00p - [place] M.DElzbieta Office Visit 02/18/2018 [facility] Marci Deluna 19060 F41.9 3:20p - [place] Tammie Office Visit 01/06/2018 [facility] Marci Deluna 55443 R10.2 3:40p - Wade Cho R05 R03.0 Office Visit 11/16/2017 2:20p [facility] Marci Deluna 65707 N39.0 - [place] M.Eladia Office Visit 10/08/2017 9:00a [facility] Dominick Wright, PLEATING MACHINE OPERATOR 72501 J06.9 - [place] R73.01 R00.2 Z13.220 K21.9 Office Visit 09/06/2017 3:00p [facility] Marci Deluna 56354 Z00.00 - [place] M.Eladia R63.5 Office Visit 06/29/2017 2:40p [facility] Camilla Estrada, N.P. 33318 R10.32 - [place] Office Visit 01/19/2017 11:20a [facility] Camilla Estrada, N.P. 03802 R10.30 - [place] M46.1 Office Visit 11/26/2016 9:00a [facility] - Nurse Visit A 95[address] I10 [place] R63.5 Office Visit 07/27/2016 8:40a [facility] Marci Deluna 28708 R63.5 - [place] M.DElzbieta R06.02 Office Visit 03/26/2016 1:20p [facility] Marci Deluna 65973 Z00.00 - [place] M.D. Office Visit 02/21/2016 2:20p [facility] Marci Hulett, 52019 J06.9 - [place] M.DElzbieta Office Visit 07/22/2015 2:40p [facility] Marci Deluna, 46528 783.1 - [place] M.D. Office Visit 05/09/2015 1:00p [facility] Marci Mikie, 80830 783.1 - [place] M.DElzbieta Office Visit 05/02/2014 10:40a [facility] Swetha Mtz M.D. 32796 V70.0 - [place] 729.4 Office Visit 01/02/2014 4:00p [facility] Marci Cotton, 77422 465.9 - [place] Tammie Office Visit 09/06/2013 3:20p [facility] Swetha Mtz M.D. 76691 683 - [place] V04.81 V70.4 Office Visit 06/28/2013 9:40a [facility] - Swetha Mtz M.D. 63389 789.07 [place] 300.00 Office Visit 04/21/2013 3:40p [facility] - Swetha Mtz M.D. 99046 784.0 [place] 388.8 300.00 Office Visit 03/29/2013 4:00p [facility] Swetha Mtz M.D. 85542 995.3 - [place] Office Visit 01/27/2013 3:30p [facility] Namita Donohue, N.P. 03114 461.1 - [place] 462 Office Visit 10/27/2012 3:40p [facility] Timmy Cruz, 87657 465.9 - [place] MJacqui Office Visit 08/26/2012 4:00p [facility] Swetha Mtz M.D. 13222 300.00 - [place] Office Visit 08/08/2012 4:20p [facility] Swetha Mtz M.D. 14077 300.00 - [place] 784.0 Office Visit 07/29/2012 11:00a [facility] Radha Mtz M.D. 60773 388.8 [place] Office Visit 07/15/2012 2:40p [facility] - Swetha Mtz M.D. 26086 300.00 [place] Office Visit 04/26/2012 1:40p [facility] - Swetha Mtz M.D. 45382 V17.49 [place] 272.0 278.00 789.04 V06.1 V73.99 Plan of Care Future Appointment(s):10/21/2018 9:20 am - Marci Deluna M.D. at [facility] - W[place]gn62/20/2018 - Camilla Estrada, N.P.R07.89 Other chest painNew Medication:Hydrocodone-Acetaminophen 5-325 mgComments:Please start taking the Prednisone. This is very helpful to decrease the inflammation in your lungs.Once you are done with this start the Flovent inhaler againFinish your antibiotic. Use the Ventolin every 4 hours as needed.Once you are done with the Prednisone, start using the Flovent.For pain I have sent a prescription in for Hydrocodone. This will work better for pain management. You can take 1 tablet, every 6 hours. This can be very constipating so be careful to eat a high fiber diet with lots of fluids.
[2018-08-06 20:33] VITALS: BP 146/86
--- NOTE | 2018-08-06 20:50 | UC ---
Ear Complaint HPI - HPI Summary HPI Summary: C/O right ear fullness x 4 days. Feels like something might be in there. Has had wax in the past. - History of Current Complaint Chief Complaint: UCEar Stated Complaint: EAR PAIN Time Seen by Provider: 08/06/18 20:43 Hx Obtained From: Patient Hx Last Menstrual Period: 07/21/ ?: No Onset/Duration: Gradual Onset, Lasting Days - 4 Severity Initially: Mild Severity Currently: Moderate Pain Intensity: 7 Alleviating Factors: Nothing Associated Signs/Symptoms: Positive: Foreign Body Sensation. Negative: Discharge, Hearing Loss Related History: Seasonal Allergies - Allergies/Home Medications Allergies/Adverse Reactions: Allergies Allergy/AdvReac Type Severity Reaction Status Date / Time Penicillins Allergy Rash Verified 08/06/18 20:33 Home Medications: Home Medications Albuterol HFA INHALER* [Ventolin HFA Inhaler*] 2 puff INH Q12H PRN 08/06/18 [ History Confirmed 08/06/18] PMH/Surg Hx/FS Hx/Imm Hx Respiratory History: Asthma - Surgical History Surgical History: None Surgery Procedure, Year, and Place: April 2017 Colonoscopy - Family History Known Family History: Positive: Cardiac Disease, Hypertension Negative: Diabetes - Social History Occupation: Employed Full-time Lives: With Family Alcohol Use: Occasionally Substance Use Type: None Smoking Status (MU): Never Smoked Tobacco - Immunization History Most Recent Influenza Vaccination: 2017 Review of Systems ENT: Ear Ache Respiratory: Shortness Of Breath, Cough Is Patient Immunocompromised?: No All Other Systems Reviewed And Are Negative: Yes Physical Exam Triage Information Reviewed: Yes Appearance: Well-Appearing, No Pain Distress, Obese Vital Signs: Initial Vital Signs Temp 99.1 F 08/06/18 20:25 Pulse 94 08/06/18 20:25 Resp 20 08/06/18 20:25 BP 146/86 08/06/18 20:25 Pulse Ox 98 08/06/18 20:25 Vital Signs Reviewed: Yes Eyes: Positive: Conjunctiva Inflamed - OD>OS ENT: Positive: Nasal congestion - with allergic changes, TMs normal - slightly retracted bilaterally Dental Exam: Normal Neck exam: Normal Respiratory: Positive: Wheezing - expiratory wheeze with coughing. Cardiovascular Exam: Normal Musculoskeletal Exam: Normal Neurological Exam: Normal Psychological Exam: Normal Skin Exam: Normal Ear Complaint Course/Dx - Differential Dx/Diagnosis Differential Diagnosis/HQI/PQRI: Otitis Externa, Otitis Media, URI Provider Diagnoses: Otalgia. Allergic rhinitis. Eustachian tube dysfunction Discharge - Sign-Out/Discharge Documenting (check all that apply): Patient Departure All imaging exams completed and their final reports reviewed: No Studies - Discharge Plan Condition: Stable Disposition: HOME Prescriptions: Montelukast Sodium TAB* [Singulair 10 MG TAB*] 10 mg PO BEDTIME #30 tab Patient Education Materials: Allergic Rhinitis (ED), Earache (ED) Referrals: Marci Deluna MD [Primary Care Provider] - Additional Instructions: NEILMED SINUS RINSE: CHECK OUT AT [facility] Saline nasal wash helps with mucous, allergies and congestion. It can be used up to twice a day or only as needed. Use lukewarm tap water. It does not have to be sterilized or distilled water. Do 1/3 on each side and snort out of both nostrils. Repeat the process with 1/6 of the bottle on each side with snorting in between to finish the solution in the bottle. Do the sinus rinse daily until you can pop your ears easily Do the Flovent and montelukast until you don't need to use the albuterol at all and then try to wean off the flovent. - Billing Disposition and Condition Condition: STABLE Disposition: Home
== END 2018-08-06 21:19 | disposition home or self-care (01) ==
LOC: UCCORT 19:41
DX: H92.01 Otalgia, right ear (principal); J30.9 Allergic rhinitis, unspecified; H69.81 Other specified disorders of Eustachian tube, right ear; Z88.0 Allergy status to penicillin
CPT/HCPCS: 99212; G0463

== ENCOUNTER 2018-12-18 16:44 | Emergency (ER) | payer BC ==
[2018-12-18 16:59] VITALS: BP 157/96
--- NOTE | 2018-12-18 17:31 | UC ---
Abdominal Pain Female HPI - HPI Summary HPI Summary: Patient is a 48 year old woman, who present today to the urgent care with abdominal for past 2 days. Pain is mainly located in the left lower quadrant. Because of pain, pt has not been eating much or drinking much. No vomiting, but also no bowel movements since 12/16 but she reports that she generally has an irregularity and bowel movements. She denies any new food Denies any fever, chills, cough, chest pain or shortness of breath . Denies any nausea or vomiting. Denies any urinary symptoms of frequency or urgency or dysuria or blood in urine She does report history of diverticulitis 4-5 years ago and had a colonoscopy last year which demonstrated some polyps as per patient. - History of Current Complaint Chief Complaint: UCGI Stated Complaint: ABD PAIN Time Seen by Provider: 12/18/18 17:20 Hx Obtained From: Patient Hx Last Menstrual Period: [id number] ?: No Pain Intensity: 7 Allergies/Adverse Reactions: Allergies Allergy/AdvReac Type Severity Reaction Status Date / Time Penicillins Allergy Rash Verified 12/18/18 17:00 Home Medications: Home Medications NK [No Home Medications Reported] 12/18/18 [History Confirmed 12/18/18] PMH/Surg Hx/FS Hx/Imm Hx - Additional Past Medical History Additional PMH: Elevated high blood pressure without any diagnosis of hypertension Asthmatic bronchitis Diverticulitis Previously Healthy: Yes - Surgical History Surgical History: None Surgery Procedure, Year, and Place: April 2017 Colonoscopy - Family History Known Family History: Positive: Cardiac Disease, Hypertension Negative: Diabetes - Social History Alcohol Use: Occasionally Substance Use Type: None Smoking Status (MU): Never Smoked Tobacco - Immunization History Most Recent Influenza Vaccination: 2017 Review of Systems All Other Systems Reviewed And Are Negative: Yes Constitutional: Positive: Negative Skin: Positive: Negative Eyes: Positive: Negative ENT: Positive: Negative Respiratory: Positive: Negative Cardiovascular: Positive: Negative Gastrointestinal: Positive: Abdominal Pain - Left lower quadrant. Negative: Vomiting, Diarrhea, Nausea Genitourinary: Positive: Negative. Negative: Dysuria, Hematuria, Frequency, Urgency Motor: Positive: Negative Neurovascular: Positive: Negative Musculoskeletal: Positive: Negative Neurological: Positive: Negative Psychological: Positive: Negative Is Patient Immunocompromised?: No Physical Exam - Summary Physical Exam Summary: Repeat pulse rate: 100 Physical Exam: Const: Appears well. No signs of apparent distress present. Alert and oriented x 3. Musculo: Walks with a normal gait. Head/Face: Atraumatic, normocephalic on inspection. Eyes: EOMI and PERRLA in both eyes. Conjunctivae clear. No discharge noted ENT: Hearing normal, Respiratory: Respirations are unlabored. Lungs clear to auscultation bilaterally, no wheezing , rhonchi or rales noted . CVS: Regular rate and Rhythm, S1S2 normal , no murmurs identified. Extremities: Peripheral circulation is grossly normal. Pulses 2+ Abdomen : Soft and tenderness to palpation is located mainly at the left lower quadrant with associated guarding. Slight bloating noted, Bowel sounds present . No rebound tenderness or rigidity noted. Skin: No lesions or rash located on the upper extremities or on the lower extremities. Neuro: Cranial nerves II to XII intact, motor and sensory intact. DTR Intact bilaterally. Mood is normal. Affect is normal. Triage Information Reviewed: Yes Vital Signs: Initial Vital Signs Temp 99.4 F 12/18/18 16:54 Pulse 125 12/18/18 16:54 Resp 12 12/18/18 16:54 BP 157/96 12/18/18 16:54 Pulse Ox 97 12/18/18 16:54 Vital Signs Reviewed: Yes Abd Pain Female Course/Dx - Course Course Of Treatment: During the visit today, we obtained UA- nitrite negative and esterase negative, blood 3+ and trace ketones. . We discussed the findings and concern for diverticulitis versus a possibility of a ureteric stone.Patient needs additional testing, thus ER transfer advised and patient agrees. Report called to the ER provider( ) [facility], advised provider of the history, physical examination, and duration of illness and labs so far and the need for definitive management. Her brother will drive her in a private car to ER. Patient expressed understanding . - Differential Dx/Diagnosis Provider Diagnosis: Diverticulitis, Ureteric stone Discharge - Sign-Out/Discharge Documenting (check all that apply): Patient Departure All imaging exams completed and their final reports reviewed: No Studies - Discharge Plan Condition: Stable Disposition: HOME-RECOMMEND TO ED Patient Education Materials: Diverticulitis (ED) Referrals: Marci Deluna MD [Primary Care Provider] - Additional Instructions: Patient needs additional testing, thus ER transfer advised and patient agrees. Report called to the ER provider( ) [facility], advised provider of the history, physical examination, and duration of illness and labs so far and the need for definitive management. Her brother will drive her to the ER in a private car. Vitals stable at the time of discharge. Patients blood pressure slightly high in Urgent care today , plan follow up with PCP for better control Return to Urgent care / ER if symptoms get worse. - Billing Disposition and Condition Condition: STABLE Disposition: Home-Recommend to ED
== END 2018-12-18 17:55 | disposition home health service (06) ==
LOC: UCEAST 16:44
DX: K57.92 Diverticulitis of intestine, part unspecified, without perforation or abscess without bleeding (principal); N20.1 Calculus of ureter; Z88.0 Allergy status to penicillin
CPT/HCPCS: 81003; 99212; G0463

== ENCOUNTER 2018-12-18 18:13 | Emergency (ER) | payer BC ==
--- NOTE | 2018-12-18 21:34 | ED ---
Abdominal Pain/Female - HPI Summary HPI Summary: Patient is a 48 y/o F presenting to ED from with complaints of LLQ pain for the past two days. She notes that last night the pain was worse. Pain is noted to be intermittent and described as a tightness. In the room, she rates pain 5/ 10. Patient reports that she has not had a bowel movement since two days ago. Hx of one episode of diverticulitis, patient states that she has a colonoscopy every 5 years. She denies fever. On triage, pain is rated 6/10, nothing is noted to aggravate/alleviate Sx. Home medications and allergies are reviewed. - History of Current Complaint Chief Complaint: EDAbdPain Stated Complaint: ABD PAIN/SENT FROM Time Seen by Provider: 12/18/18 21:21 Hx Obtained From: Patient Hx Last Menstrual Period: [id number] Onset/Duration: Lasting Days - two, Still Present Timing: Intermittent Episode Lasting Severity Currently: Moderate - 6/10 Pain Intensity: 6 Pain Scale Used: 0-10 Numeric - 6/10 Location: Discrete At: LLQ Radiates: No Character: Other: - tightness Aggravating Factor(s): Nothing Alleviating Factor(s): Nothing Associated Signs and Symptoms: Positive: Constipation. Negative: Fever Allergies/Adverse Reactions: Allergies Allergy/AdvReac Type Severity Reaction Status Date / Time Penicillins Allergy Rash Verified 12/18/18 18:16 PMH/Surg Hx/FS Hx/Imm Hx Endocrine/Hematology History: Denies: Hx Diabetes Cardiovascular History: Denies: Hx Congestive Heart Failure, Hx Deep Vein Thrombosis, Hx Hypertension - being monitored, Hx Myocardial Infarction, Hx Pacemaker/ICD GI History: Reports: Hx Diverticulosis Psychiatric History: Reports: Hx Anxiety - Surgical History Surgery Procedure, Year, and Place: April 2017 Colonoscopy - Immunization History Date of Tetanus Vaccine: unk Date of Influenza Vaccine: fall 2017 Infectious Disease History: No Infectious Disease History: Denies: Traveled Outside the [place] in Last 30 Days - Family History Known Family History: Positive: Cardiac Disease, Hypertension Negative: Diabetes - Social History Alcohol Use: Rare Hx Substance Use: No Substance Use Type: Reports: None Hx Tobacco Use: No Smoking Status (MU): Never Smoked Tobacco Review of Systems Negative: Fever Positive: Abdominal Pain, Other - POSITIVE - CONSTIPATION All Other Systems Reviewed And Are Negative: Yes Physical Exam - Summary Physical Exam Summary: VITAL SIGNS: Reviewed. GENERAL: Patient is a well-developed and nourished female who is lying comfortable in the stretcher. Patient is not in any acute respiratory distress. HEAD AND FACE: No signs of trauma. No ecchymosis, hematomas or skull depressions. No sinus tenderness. EYES: PERRLA, EOMI x 2, No injected conjunctiva, no nystagmus. EARS: Hearing grossly intact. Ear canals and tympanic membranes are within normal limits. MOUTH: Oropharynx within normal limits. NECK: Supple, trachea is midline, no adenopathy, no JVD, no carotid bruit, no c- spine tenderness, neck with full ROM. CHEST: Symmetric, no tenderness at palpation LUNGS: Clear to auscultation bilaterally. No wheezing or crackles. CVS: Regular rate and rhythm, S1 and S2 present, no murmurs or gallops appreciated. ABDOMEN: Soft, LLQ tenderness. No signs of distention. No rebound no guarding, and no masses palpated. Bowel sounds are normal. EXTREMITIES: FROM in all major joints, no edema, no cyanosis or clubbing. NEURO: Alert and oriented x 3. No acute neurological deficits. Speech is normal and follows commands. SKIN: Dry and warm Triage Information Reviewed: Yes Vital Signs On Initial Exam: Initial Vitals Temp Pulse Resp BP Pulse Ox 98.4 F 111 14 140/103 96 12/18/18 18:16 12/18/18 18:16 12/18/18 18:16 12/18/18 18:16 12/18/18 18:16 Vital Signs Reviewed: Yes Diagnostics - Vital Signs Vital Signs Temp Pulse Resp BP Pulse Ox 12/18/18 21:24 111 155/93 97 12/18/18 21:23 114 98 12/18/18 18:16 98.4 F 111 14 140/103 96 - Laboratory Result Diagrams: 12/18/18 22:46 12/18/18 22:46 Lab Statement: Any lab studies that have been ordered have been reviewed, and results considered in the medical decision making process. - CT abd/pel ct CT Interpretation Completed By: Radiologist Summary of CT Findings: IMPRESSION: 1. Proximal sigmoid colon diverticulitis. No perforation or abscess. 2. Cholelithiasis. 3. Simple right ovarian cyst. Recommend US follow-up in 6-12 weeks. This report was reviewed by ED physician. Re-Evaluation - Re-Evaluation First Eval Re-Evaluation Time: 00:12 Comment: Results of labs and tests dicussed with patient, she will be discharged to home, she is agreeable with this. Abdominal Pain Fem Course/Dx - Course Course Of Treatment: Patient is a 48 y/o F presenting to ED from with complaints of LLQ pain for the past two days. She notes that last night the pain was worse. Pain is noted to be intermittent and described as a tightness. In the room, she rates pain 5/10. Patient reports that she has not had a bowel movement since two days ago. Hx of one episode of diverticulitis, patient states that she has a colonoscopy every 5 years. She denies fever. On physical exam, LLQ tenderness is noted. CT ABD/PEL IMPRESSION: 1. Proximal sigmoid colon diverticulitis. No perforation or abscess. 2. Cholelithiasis. 3. Simple right ovarian cyst. Recommend US follow-up in 6-12 weeks. During ED course, patient received fluids, Flagyl 500 mg PO, Levaquin 750 mg PO. Labs showed CRP 155.96, lipase 11, beta HCG 0.94. Results of labs and tests dicussed with patient, she will be discharged to home, she is agreeable with this. - Diagnoses Provider Diagnoses: Diverticulitis Discharge - Sign-Out/Discharge Documenting (check all that apply): Patient Departure - discharge - Discharge Plan Condition: Stable Disposition: HOME Prescriptions: Levofloxacin TAB* [Levaquin TAB*] 500 mg PO DAILY #7 tab metroNIDAZOLE [Flagyl 500 MG TAB] 500 mg PO TID #20 tab Patient Education Materials: Diverticulitis (ED) Referrals: Marci Deluna MD [Primary Care Provider] - 2 Days Additional Instructions: RETURN TO ED WITH ANY NEW OR WORSENING SYMPTOMS. FOLLOW UP WITH PRIMARY CARE PHYSICIAN WITHIN 2 DAYS. - Attestation Statements Document Initiated by Scribe: Yes Documenting Scribe: ESE AMIN Provider For Whom Nori is Documenting (Include Credential): SANDRA GARNICA MD Scribe Attestation: ESE Green scribed for SANDRA GARNICA MD on 12/19/18 at 0021. Status of Scribe Document: Ready
[2018-12-18] MEDS ORDERED: NS 0.9% 1000 ML* 1,000 ML IV ONE (21:47)
[2018-12-18 23:09] LABS: ABS Basophils 0.1 10^3/ul (0-0.2); ABS Eosinophils 0 10^3/ul (0-0.6); ABS Lymphocytes 1.6 10^3/ul (1.0-4.8); ABS Monocytes 0.7 10^3/ul (0-0.8); ABS Neutrophils 8.3 10^3/ul (1.5-7.7); ABS Nucleated RBC 0 10^3/ul; Eosinophil % 0.4 %; Hematocrit 42 % (35-47); Hemoglobin 14.1 g/dl (12.0-16.0); Lymphocyte % 15.2 %; Mean Corpuscular HGB Conc 34 g/dl (31-36); Mean Corpuscular Hemoglobin 29 pg (27-31); Mean Corpuscular Volume 84 fL (80-97); Mean Platelet Volume 8.1 fL (7.4-10.4); Nucleated Red Blood Cells % 0; Platelet Count 187 10^3/ul (150-450); Red Blood Count 4.94 10^6/ul (4.00-5.40); Red Cell Distribution Width 14 % (10.5-15); White Blood Count 10.8 10^3/ul (3.5-10.8)
[2018-12-18 23:28] LABS: Albumin 3.5 g/dL (3.2-5.2); BUN/Creatinine Ratio 13.6 (8-20); C Reactive Protein 155.96 mg/L (<8.01); Calcium 9.1 mg/dL (8.6-10.3); EGFR Non-African American 68.6 (>60); Globulin 3.5 g/dL (2-4); Potassium 3.5 mmol/L (3.5-5.0); Total Bilirubin 0.8 mg/dL (0.2-1.0)
[2018-12-18 23:34] LABS: HCG Pregnancy 0.94 mIU/mL
[2018-12-18] MEDS ORDERED: Iohexol 300* (CONTRAST) 10 ML SDV IV ONE (23:40)
[2018-12-19] MEDS ORDERED: Levofloxacin TAB* 250 MG PO ONE (00:07)
[2018-12-19] MEDS ORDERED: metroNIDAZOLE TAB* 250 MG PO ONE (00:08)
[2018-12-19 00:28] VITALS: BP 151/94
== END 2018-12-19 00:28 | disposition home or self-care (01) ==
LOC: ED 18:13
DX: K57.92 Diverticulitis of intestine, part unspecified, without perforation or abscess without bleeding (principal); R10.32 Left lower quadrant pain; K59.00 Constipation, unspecified; Z88.0 Allergy status to penicillin
CPT/HCPCS: 36415; 74177; 80053; 83605; 83690; 84702; 85025; 86140; 96360; 99283; A9270-GY; Q9967

== ENCOUNTER 2019-04-26 18:25 | Emergency (ER) | payer BC ==
--- NOTE | 2019-04-26 19:11 | UC ---
Skin Complaint HPI - HPI Summary HPI Summary: 48 y/o female presents to the urgent care c/o tick bite on her left upper arm she noticed and removed it on Wednesday. Pt reports it has been itching a lot. She is not sure if it was engorged, but she squeezed it and she didn't see any blood. She was told by the school nurse to come and have it evaluated to get prophylactic treatment. Pt denies fever, SOB, BORREGO, joint pains, chest pain, abdominal pain, N/V/D. - History of Current Complaint Time Seen by Provider: 04/26/19 19:10 Stated Complaint: TICK BITE Hx Obtained From: Patient Hx Last Menstrual Period: [id number] Onset/Duration: Gradual Onset, Lasting Days - 5 days, Resolved - tick removed Skin Exposure Onset/Duration: Days Ago - 5 days Timing: Constant Onset Severity: Mild Current Severity: Mild Pain Intensity: 0 - itchiness Pain Scale Used: 0-10 Numeric Location: Discrete - left upper arm tick bite Character: Pruritus, Redness Aggravating Factor(s): Touch Alleviating Factor(s): Nothing Associated Signs & Symptoms: Positive: Rash - tick bite in the left upper arm. Negative: Fever, Chills Related History: Possible Reaction to: Insect - tick bite - Allergy/Home Medications Allergies/Adverse Reactions: Allergies Allergy/AdvReac Type Severity Reaction Status Date / Time Penicillins Allergy Rash Verified 04/26/19 19:18 PMH/Surg Hx/FS Hx/Imm Hx Previously Healthy: Yes Cardiovascular History: Hypertension - diet controlled - Surgical History Surgical History: Yes Surgery Procedure, Year, and Place: April 2017 Colonoscopy - Family History Known Family History: Positive: Cardiac Disease, Hypertension Negative: Diabetes - Social History Occupation: Employed Full-time Lives: With Family Alcohol Use: Rare Substance Use Type: None Smoking Status (MU): Never Smoked Tobacco Have You Smoked in the Last Year: No - Immunization History Most Recent Influenza Vaccination: 2016 Review of Systems All Other Systems Reviewed And Are Negative: Yes Constitutional: Positive: Negative Skin: Positive: Rash - tick bite in the left upper arm Eyes: Positive: Negative ENT: Positive: Negative Respiratory: Positive: Negative Cardiovascular: Positive: Negative Gastrointestinal: Positive: Negative Genitourinary: Positive: Negative Motor: Positive: Negative Neurovascular: Positive: Negative Musculoskeletal: Positive: Negative Neurological: Positive: Negative Psychological: Positive: Negative Is Patient Immunocompromised?: No Physical Exam - Summary Physical Exam Summary: Vital Signs Reviewed: Yes General: well developed, well nourished female sitting in the examining table w/ o any apparent distress. Eyes: Positive: Conjunctiva Clear - PERRLA, EOMI ENT: Positive: Normal ENT inspection, Hearing grossly normal, Pharynx normal, TMs normal Neck: Positive: Supple, Nontender, No Lymphadenopathy Respiratory: Positive: Chest nontender, Lungs clear, Normal breath sounds Cardiovascular: Positive: RRR, No Murmur, Pulses Normal Abdomen Description: Positive: Nontender, No Organomegaly, Soft. Negative: CVA Tenderness (R), CVA Tenderness (L) Bowel Sounds: Positive: Present Musculoskeletal: Positive: Strength Intact, ROM Intact, No Edema Neurological Exam: Normal Psychological Exam: Normal Skin: Positive: rashes - medial aspect of Left upper arm with tick bite with surrounding erythema, non tender to palpation. tick no longer present, no swelling or drainage observed. Triage Information Reviewed: Yes Course/Dx - Course Course Of Treatment: 48 y/o female presents to the urgent care c/o tick bite on her left upper arm she noticed and removed it on Wednesday. Pt reports it has been itching a lot. She is not sure if it was engorged, but she squeezed it and she didn't see any blood. She was told by the school nurse to come and have it evaluated to get prophylactic treatment. Pt denies fever, SOB, BORREGO, joint pains, chest pain, abdominal pain, N/V/D. Pt w/medial aspect of Left upper arm with tick bite with surrounding erythema, non tender to palpation. tick no longer present, no swelling or drainage observed. Area cleaned w/ alcohol swabs and Bacitracin oint applied over tick bite. Antibiotic prophylaxis with Doxycycline given to the patient to prevent lyme Disease.. Pt tolerated well medication. Pt advised to observe the area for the development or Erythema Migrans for upto 30 days following exposure. Advised if he develops fever or erythema Migrans to return to the clinic or PCP for further treatment . Pt's BP is elevated today advised to decrease salt in diet, monitor BP and f/u with PCP for further management. D/ C instructions explained. Pt understood and agreed with plan of care. - Differential Diagnoses - Skin Complaint Differential Diagnoses: Abscess, Cellulitis, Contact Dermatitis, MRSA, Tick Born Illness, Other - insect bite, bee sting - Diagnoses Provider Diagnosis: Tick bite of left upper arm, Uncontrolled hypertension Discharge - Sign-Out/Discharge Documenting (check all that apply): Patient Departure - D/C home All imaging exams completed and their final reports reviewed: No Studies - Discharge Plan Condition: Stable Disposition: HOME Prescriptions: Bacitracin OINTMENT* 1 applic TOPICAL BID #1 tube Patient Education Materials: Tick Bite (ED) Referrals: Marci Deluna MD [Primary Care Provider] - 2 Weeks Ganga BUENROSTRO,Loy Montilla [Medical Doctor] - If Needed Additional Instructions: 1- Please observe the area for the development or Erythema Migrans for upto 30 days following exposure. Components of the tick saliva can cause transient erythema that should not be confused with Erythema Migrans. If you develop the bull's eye rash, fever, joint pains please return to the urgent care or f/u with your PCP or Dr Schuler for further management. Apply Bacitracin oint around tick bite as directed 2-Antibiotic prophylaxis with Doxycycline was given to you today to prevent lyme Disease. Lyme serology can be drawn in 2 weeks with your PCP to r/o Lyme disease since there is probability of negative results at early exposure. 3- Your BP is elevated today. please decrease salt in your diet, monitor BP and if it continues to be elevated please f/u with your PCP for further management. - Billing Disposition and Condition Condition: STABLE Disposition: Home
[2019-04-26 19:17] VITALS: BP 146/90
[2019-04-26] MEDS ORDERED: DOXYcycline CAP(*) 100 MG PO ONE (19:21)
== END 2019-04-26 19:50 | disposition home or self-care (01) ==
LOC: UCCORT 18:25
DX: S40.862A Insect bite (nonvenomous) of left upper arm, initial encounter (principal); I10 Essential (primary) hypertension; Z88.0 Allergy status to penicillin; W57.XXXA Bitten or stung by nonvenomous insect and other nonvenomous arthropods, initial encounter; Y92.9 Unspecified place or not applicable
CPT/HCPCS: 99212; A9270-GY; G0463

== ENCOUNTER 2019-07-16 16:08 | Emergency (ER) | payer BC ==
--- OUTSIDE RECORDS SUMMARY | 2019-07-16 16:17 | XMS REPORT | Continuity of Care Document ---
:1970 External Reference #:[id number] Author Name Marci Deluna M.D. (transmitted by agent of provider Daja Flores) Address [address] [facility] [address], [place] [address] Care Team Providers Name Role Phone Swetha Mtz MD - Internal Medicine Care Team Information Piano Stringer Julio Cesar Brito MD - Otolaryngology Care Team Information Piano Stringer [phone] Marci Deluna MD - Internal Care Team Information Piano Stringer Medicine Gabrielle Shirley MD - Obstetrics & Care Team Information Piano Stringer [phone] Gynecology Morelia Moody MD - Internal Care Team Information Piano Stringer Medicine Problems Active Problems Provider Date FH: Cardiovascular disease Swetha Mtz M.D. Onset: 04/26/2012 Social History Type Date Description Comments Sex Unknown ETOH Use Denies alcohol use Tobacco Use Start: Unknown Patient has never smoked Recreational Drug Use Denies Drug Use Smoking Status Reviewed: 07/14/19 Patient has never smoked Allergies, Adverse Reactions, Alerts Active Allergies Reaction Severity Comments Date Penicillin rash 04/26/2012 Macrobid SOB and hard to swallow Severe 09/26/2018 Medications Active Medications SIG Qnty Indications Ordering Provider Date Doxycycline Hyclate 1 tab by mouth 14tabs N39.0 Marci Deluna, 2018 twice a day for M.D. 100mg Tablets 7 days Advil as needed Unknown 200mg Capsules History Medications Sulfamethoxazole/Trimethoprim DS one by 14tabs N39.0 Camilla 07/10/2019 - 800-160mg mouth Varn, N.P. 07/14/2019 Tablets twice a day for 7 days Metronidazole 1 tab by 21tabs R10.32 Galilea 06/11/2019 - 500mg Tablets mouth Tammie Clemens 06/18/2019 three times a day x 1 week Levofloxacin 1 by mouth 7tabs R10.32 Galilea 06/11/2019 - 500mg Tablets every day Tammie Clemens 07/09/2019 for a week Levofloxacin 1 by mouth 7tabs R10.32 Marci 04/28/2019 - 500mg Tablets every day Tammie Deluna 05/05/2019 for a week Metronidazole 1 tab by 21tabs R10.32 Marci 04/28/2019 - 500mg Tablets mouth Tammie Deluna 05/05/2019 three times a day x 1 week Immunizations CPT Code Status Date Vaccine Lot # [id number] Given 09/16/2018 Influenza Virus Vaccine, Quadrivalent, Split, [id number] Preservative Free [id number] Given 08/26/2016 Flu Vaccine NOS 12032 Given 09/06/2013 Flu Vaccine Split Virus Preservative Free For [id number] Indiv 3Yr Older [id number] Given 04/26/2012 Tdap - Tetanus/Diptheria/Acellular Pertussis [id number] Vital Signs Date Vital Result Comment 07/14/2019 1:28pm Height 66 inches 5'6" Weight 255.00 lb Heart Rate 85 /min BP Systolic 138 mmHg BP Diastolic 90 mmHg BP Systolic Sitting 138 mmHg recheck BP Diastolic Sitting 87 mmHg recheck O2 % BldC Oximetry 97 % BMI (Body Mass Index) 41.2 kg/m2 07/10/2019 10:50am Height 66 inches 5'6" Weight 258.00 lb Heart Rate 82 /min BP Systolic 128 mmHg BP Diastolic 72 mmHg Body Temperature 98.3 F O2 % BldC Oximetry 97 % BMI (Body Mass Index) 41.6 kg/m2 Results Test Date Facility Test Result H/L Range Note Urine Culture And 07/10/2019 [facility] Urine Culture SEE RESULT [address] [place] [id number] [phone] Ua Routine 07/10/2019 [facility] Ua Specific [address] [place] Ua PH 5 Ua Color yellow Ua Appera cloudy Ua WBC positive Ua Protein negative Ua Glucose negative Ua Ketones negative Ua Bilirubin negative Ua Urobilinogen negative Ua Nitrite negative Ua Occult Blood about 250 Laboratory test 05/30/2019 [facility] Cytology SEE RESULT [address] [place] [address] [phone] CBC Auto Diff 01/27/2019 [facility] White Blood 7.4 10^3/uL Normal 3.5-[address] Count 0.8 [place] [address] [phone] Red Blood Count 5.02 10^6/uL Normal 4.00-5.40 Hemoglobin 14.6 g/dL Normal 12.0-16.0 Hematocrit 43 % Normal 35-47 Mean Corpuscular Volume 86 fL Normal 80-97 Mean Corpuscular Hemoglobin 29 pg Normal 27-31 Mean Corpuscular HGB Conc 34 g/dL Normal 31-36 Red Cell Distribution Width 15 % Normal 10.5-15 Platelet Count 178 10^3/uL Normal 150-450 Mean Platelet Volume 8.4 fL Normal 7.4-10.4 Abs Neutrophils 5.1 10^3/uL Normal 1.5-7.7 Abs Lymphocytes 1.6 10^3/uL Normal 1.0-4.8 Abs Monocytes 0.5 10^3/uL Normal 0-0.8 Abs Eosinophils 0.1 10^3/uL Normal 0-0.6 Abs Basophils 0 10^3/uL Normal 0-0.2 Abs Nucleated RBC 0 10^3/uL Granulocyte % 69.6 % Lymphocyte % 21.5 % Monocyte % 7.1 % Eosinophil % 1.2 % Basophil % 0.6 % Nucleated Red Blood Cells % 0.1 Type & Screen 01/27/2019 [facility] Patient Blood Type A Positive [address] [place] [address] [phone] Antibody Screen NEGATIVE 1 SEE RESULT BELOW Name: NAHOMI SANFORD : [address]: Camilla Estrada NP Acct: [id number] Unit: [id number] AGE: 48 Location: [facility] Re07/10/19 SEX: F Status: REG REF SPEC: [id number] DUC: 07/10/19-[address]: Camilla Estrada NP REQ: [id number] RECD: 07/10/19 STATUS: COMP _ SOURCE: URINE SPDESC: ORDERED: Urine Culture COMMENTS: [id number] Urine Source: Random Procedure Result Reported Site Urine Culture Final 07/12/19- 812 ML Organism 1 ESCHERICHIA COLI [place] Count 50-75,000 (Many) CFU/ML 1. ESCHERICHIA COLI [facility] RX --------- ------ Ampicillin 8 S Cefazolin <=4 S Cefepime <=1 S Ceftriaxone <=1 S Ciprofloxacin >=4 R Gentamicin <=1 S Levofloxacin >=8 R Meropenem <=0.25 S Nitrofurantoin <=16 S Tetracycline 2 S Pipercillin/Tazobactam <=4 S Trimethoprim/Sulfamethoxazole >=320 R Amoxicillin/Clavulanic Acid 4 S Aztreonam <=1 S Contact the Microbiology Department for any additional antibiotic reporting. * - [facility] . END OF REPORT DEPARTMENT OF PATHOLOGY, [address] [place] [address] Zachary Hammond M.D. Director [facility] # [id number] 2 SEE RESULT BELOW Name: NAHOMI SANFORD : [address]: Gabrielle Shirley MD Acct: [id number] Unit: [id number] AGE: 48 Location: [facility] Re05/30/19 SEX: F Status: REG REF SPEC: [id number] DUC: 05/30/19-0950 [facility] DR: Gabrielle Shirley MD REQ: [id number] RECD: 05/30/190 STATUS: NERISSA BENITEZ DR: Marci Deluna MD _ ORDERED: TP IMAGE ANALYS, HPV/Thin Prep COMMENTS: [id number] Negative for Intraepithelial lesion or Malignancy Date Time Test Result Flag (u) Normal Range 05/30/19 0950 HPV RNA Negative Negative The high-risk HPV types detected by the assay include: 16, 18, 31, 33, 35, 39, 45, 51, 52, 56, 58, 59, 66, and 68. A. Ectocervical/Endocervical Specimen Adequacy: Satisfactory of evaluation Transformation zone component identified Patient Information: HPV: High risk HPV RNA testing regardless of pap results. Actual Specimen Date: 05/30/19 Last Menstrual Date: 05/25/19 Date of Last Specimen: 06/24/18 Signed by and Reported on: JOSE R Trujillo(ASCP) 1812 This Pap test was evaluated with the assistance of the ThinPrep Test Imaging System. Due to cytologic findings at the manager supply chain planning microscope, comprehensive manual rescreening by a Bad Cloth Checker may be required. The Pap Smear is [...] years. END OF REPORT DEPARTMENT OF PATHOLOGY, [address] [place] [address] Zachary Hammond M.D. Director [facility] # [id number] Procedures Date Code Description Status 04/17/2019 [id number] Mammogram Completed 04/14/2018 [id number] Mammogram Completed 05/04/2017 07307516 Colonoscopy Completed 04/08/2017 [id number] Mammogram Completed 04/06/2016 [id number] Mammogram Completed 04/05/2015 [id number] Mammogram Completed 04/04/2014 [id number] Mammogram Completed 03/11/2012 [id number] Colonoscopy Completed Medical Devices Description No Information Available Encounters Type Date Location Provider Dx Diagnosis Office Visit 07/10/2019 [facility] Internal Camilla Estrada, N39.0 Urinary tract 10:40a Medicine - Ccmob N.P. infection, site not specified K21.9 Gastro-esophageal reflux disease without esophagitis Office Visit 06/09/2019 3:00p [facility] Internal Marci R10.30 Lower abdominal Zachariah Deluna M.D. pain, unspecified Ccmob Office Visit 04/28/2019 4:00p [facility] Internal Marci R10.32 Left lower Zachariah Deluna M.D. quadrant pain Ccmob S50.362A Insect bite (nonvenomous) of left elbow, initial encounter Office 02/20/2019 DoNotUse [facility] Internal Marci R03.0 Elevated Visit 4:00p Zachariah-Warren Deluna M.D. blood-pressure reading, w/o diagnosis of htn Assessments Date Code Description Provider 07/14/2019 N39.0 Urinary tract infection, site not Marci Cotton, M.D. specified 07/10/2019 N39.0 Urinary tract infection, site not Camilla Estrada, N.PElzbieta specified 07/10/2019 K21.9 Gastro-esophageal reflux disease without Camilla Estrada, N.P. esophagitis 06/09/2019 R10.30 Lower abdominal pain, unspecified Marci Deluna M.D. 04/28/2019 R10.32 Left lower quadrant pain Marci Deluna M.D. 04/28/2019 S50.362A Insect bite (nonvenomous) of left elbow, Marci Deluna M.D. initial encounter 02/20/2019 R03.0 Elevated blood-pressure reading, without Marci Deluna M.D. diagnosis of hypert Plan of Treatment 07/14/2019 - Marci Deluna M.D.N39.0 Urinary tract infection, site not specifiedNew Medication:Doxycycline Hyclate 100 mg - 1 tab by mouth twice a day for 7 daysComments:Stop the trimethoprim/sulfaStart the doxycycline - note that you can get a much more severe burn than usual in the sun on this medicine Functional Status Description No Information Available Mental Status Description No Information Available Referrals Description No Information Available
--- OUTSIDE RECORDS SUMMARY | 2019-07-16 16:17 | XMS REPORT | Continuity of Care Document ---
:1970 External Reference #:[id number] Author Name Camilla Estrada N.P. (transmitted by agent of provider Catrachita Jj) Address [address], [place] [address] Care Team Providers Name Role Phone Swetha Mtz MD - Internal Medicine Care Team Information Manager Clinical Applications Julio Cesar Brito MD - Otolaryngology Care Team Information Manager Clinical Applications [phone] Marci Deluna MD - Internal Care Team Information Manager Clinical Applications [phone] Medicine Gabrielle Shirley MD - Obstetrics & Care Team Information Manager Clinical Applications Gynecology Morelia Moody MD - Internal Care Team Information Manager Clinical Applications [phone] Medicine Problems Active Problems Provider Date FH: Cardiovascular disease Swetha Mtz M.D. Onset: 04/26/2012 Social History Type Date Description Comments Sex Unknown ETOH Use Denies alcohol use Tobacco Use Start: Unknown Patient has never smoked Recreational Drug Use Denies Drug Use Smoking Status Reviewed: 07/10/19 Patient has never smoked Allergies, Adverse Reactions, Alerts Active Allergies Reaction Severity Comments Date Penicillin rash 04/26/2012 Macrobid SOB and hard to swallow Severe 09/26/2018 Medications Active Medications SIG Qnty Indications Ordering Provider Date Sulfamethoxazole/Trim one by mouth 14tabs N39.0 Camilla Estrada, 07/10/2019 ethoprim DS twice a day for N.P. 800-160mg 7 days Tablets Advil as needed Unknown 200mg Capsules History Medications Metronidazole 1 tab by mouth 21tabs R10.32 Galilea Clemens, 06/11/2019 - 500mg three times a M.D. 06/18/2019 Tablets day x 1 week Levofloxacin 1 by mouth 7tabs R10.32 Galilea Clemens, 06/11/2019 - 500mg every day for M.D. 07/09/2019 Tablets a week Levofloxacin 1 by mouth 7tabs R10.32 Marci Deluna, 04/28/2019 - 500mg every day for M.D. 05/05/2019 Tablets a week Metronidazole 1 tab by mouth 21tabs R10.32 Marci Cotton, 04/28/2019 - 500mg three times a M.D. 05/05/2019 Tablets day x 1 week Immunizations CPT Code Status Date Vaccine Lot # [id number] Given 09/16/2018 Influenza Virus Vaccine, Quadrivalent, Split, [id number] Preservative Free Q2039 Given 08/26/2016 Flu Vaccine NOS 91479 Given 09/06/2013 Flu Vaccine Split Virus Preservative Free For [id number] Indiv 3Yr Older 45008 Given 04/26/2012 Tdap - Tetanus/Diptheria/Acellular Pertussis [id number] Vital Signs Date Vital Result Comment 07/10/2019 10:50am Height 66 inches 5'6" Weight 258.00 lb Heart Rate 82 /min BP Systolic 128 mmHg BP Diastolic 72 mmHg Body Temperature 98.3 F O2 % BldC Oximetry 97 % BMI (Body Mass Index) 41.6 kg/m2 06/09/2019 3:12pm Height 66 inches 5'6" Weight 257.00 lb Heart Rate 104 /min BP Systolic 133 mmHg BP Diastolic 93 mmHg Body Temperature 99.1 F O2 % BldC Oximetry 96 % BMI (Body Mass Index) 41.5 kg/m2 Results Test Date Facility Test Result H/L Range Note Ua Routine 07/10/2019 [facility] Ua Specific [place] 1020 Ua PH 5 Ua Color yellow Ua Appera cloudy Ua WBC positive Ua Protein negative Ua Glucose negative Ua Ketones negative Ua Bilirubin negative Ua Urobilinogen negative Ua Nitrite negative Ua Occult Blood about 250 Laboratory test 05/30/2019 Cytology SEE RESULT [address] [place] [address] [phone] CBC Auto Diff 01/27/2019 White Blood 7.4 10^3/uL Normal 3.5-[address] Count 0.8 [place] [address] [phone] Red Blood Count 5.02 10^6/uL Normal 4.00-5.40 [...] Cells % 0.1 Type & Screen 01/27/2019 Patient Blood Type A Positive [address] [place] [address] [phone] Antibody Screen NEGATIVE 1 SEE RESULT BELOW Name: NAHOMI SANFORD : [address]: Gabrielle Shirley MD Acct: [id number] Unit: [id number] AGE: 48 Location: [facility] Re05/30/19 SEX: F Status: REG REF SPEC: [id number] DUC: 05/30/19-0950 [facility] DR: Gabrielle Shirley MD REQ: [id number] RECD: 05/30/19-1210 STATUS: NERISSA BENITEZ DR: Marci Deluna MD _ ORDERED: TP IMAGE ANALYS, HPV/Thin Prep COMMENTS: [id number] Negative for Intraepithelial lesion or Malignancy Date [...] by and Reported on: JOSE R Trujillo(ASCP) 4829 This Pap test was evaluated with the assistance of the [employer] LearningPrep Test Imaging System. Due to cytologic findings at the antenna installer microscope, comprehensive manual rescreening by a Qual Field Manager may be required. The Pap Smear [...] years. END OF REPORT DEPARTMENT OF PATHOLOGY, [address] [place] [address] Zachary Hammond M.D. Director [facility] # [id number] Procedures Date Code Description Status 04/17/2019 [id number] Mammogram Completed 04/14/2018 [id number] Mammogram Completed 05/04/2017 [id number] Colonoscopy Completed 04/08/2017 [id number] Mammogram Completed 04/06/2016 [id number] Mammogram Completed 04/05/2015 [id number] Mammogram Completed 04/04/2014 [id number] Mammogram Completed 03/11/2012 [id number] Colonoscopy Completed Medical Devices Description No Information Available Encounters Type Date Location Provider Dx Diagnosis Office Visit 06/09/2019 [facility] Marci Mikie, R10.30 Lower abdominal 3:00p Medicine - Ccmob M.D. pain, unspecified Office Visit 04/28/2019 [facility] Marci Mikie, R10.32 Left lower quadrant 4:00p Medicine - Ccmob M.D. pain S50.362A Insect bite (nonvenomous) of left elbow, initial encounter Office 02/20/2019 DoNotUse [facility] Marci R03.0 Elevated Visit 4:00p Medicine-[place] Cotton, M.D. blood-pressure reading, w/o diagnosis of htn Assessments Date Code Description Provider 07/10/2019 N39.0 Urinary tract infection, site not Camilla Estrada, N.P. specified 07/10/2019 K21.9 Gastro-esophageal reflux disease without Camilla Estrada N.Sylvester. esophagitis 06/09/2019 R10.30 Lower abdominal pain, unspecified Marci Deluna M.D. 04/28/2019 R10.32 Left lower quadrant pain Marci Deluna M.D. 04/28/2019 S50.362A Insect bite (nonvenomous) of left elbow, Marci Deluna M.D. initial encounter 02/20/2019 R03.0 Elevated blood-pressure reading, without Marci Deluna M.D. diagnosis of hypert Plan of Treatment Future Appointment(s):07/20/2019 7:40 am - Marci Deluna M.D. at [facility]07/10/2019 - Camilla Estrada NMarvinN39.0 Urinary tract infection, site not specifiedNew Medication:Sulfamethoxazole/Trimethoprim DS 800 -160 mg - one by mouth twice a day for 7 daysComments:For your urinary tract infection:I sent a prescription to the pharmacy for Bactrim DS, take one by mouth twice daily for 7 days.Avoid bladder irritants: coffee, tea, sallie, alcohol, and spicy foods.I am sending a specimen for culture, the office will call if you need a different antibiotic. If symptoms persist call the office.K21.9 Gastro-esophageal reflux disease without esophagitisComments:Your symptoms are consistent with esophageal reflux.I advise you to avoid food triggers. These include: Spicy, greasy, and acidic foods, along with coffee and alcohol. When you have symptoms, try taking Ranitidine or Famotidine. (These are the generic for Zantac and Pepcid AC). Functional Status Description No Information Available Mental Status Description No Information Available Referrals Description No Information Available
[2019-07-16 16:24] VITALS: BP 130/74
--- NOTE | 2019-07-16 16:45 | UC ---
Lower Extremity/Ankle HPI - HPI Summary HPI Summary: 48-year-old woman comes in with a chief complaint of right foot swelling and pain. Pain is swelling started last night. It's mostly in the distal foot and more most focused on the right first MTP area. Is tender to palpation on the plantar surface. No known trauma. She was wearing flip flops yesterday while working in the garden. No history of gout. No fevers or chills. She is on doxycycline right now for urinary tract infection. - History of Current Complaint Chief Complaint: UCLowerExtremity Stated Complaint: RIGHT SWOLLEN FOOT Time Seen by Provider: 07/16/19 16:25 Hx Last Menstrual Period: 317503 Pain Intensity: 7 - Allergies/Home Medications Allergies/Adverse Reactions: Allergies Allergy/AdvReac Type Severity Reaction Status Date / Time Penicillins Allergy Rash Verified 07/16/19 16:24 Home Medications: Home Medications Doxycycline Hyclate 100 mg PO BID 07/16/19 [History Confirmed 07/16/19] PMH/Surg Hx/FS Hx/Imm Hx Previously Healthy: Yes GI/ History: Diverticulitis - Surgical History Surgical History: Yes Surgery Procedure, Year, and Place: April 2017 Colonoscopy - Family History Known Family History: Positive: Cardiac Disease, Hypertension Negative: Diabetes - Social History Alcohol Use: Rare Substance Use Type: None Smoking Status (MU): Never Smoked Tobacco Have You Smoked in the Last Year: No - Immunization History Most Recent Influenza Vaccination: 2016 Review of Systems All Other Systems Reviewed And Are Negative: Yes Constitutional: Positive: Negative Skin: Positive: Other - SEE HPI Eyes: Positive: Negative ENT: Positive: Negative Respiratory: Positive: Negative Cardiovascular: Positive: Negative Gastrointestinal: Positive: Negative Motor: Positive: Negative Neurovascular: Positive: Negative Musculoskeletal: Positive: Other: - SEE HPI Neurological: Positive: Negative Psychological: Positive: Negative Is Patient Immunocompromised?: No Physical Exam Triage Information Reviewed: Yes Appearance: Well-Appearing, No Pain Distress, Well-Nourished Vital Signs: Initial Vital Signs Temp 98.2 F 07/16/19 16:17 Pulse 90 07/16/19 16:17 Resp 18 07/16/19 16:17 BP 130/74 07/16/19 16:17 Pulse Ox 99 07/16/19 16:17 Vital Signs Reviewed: Yes Eye Exam: Normal Eyes: Positive: Conjunctiva Clear Neck: Positive: Supple Respiratory: Positive: No respiratory distress Musculoskeletal: Positive: Strength Intact, ROM Intact, Other: - Right foot has swelling in the distal foot to include all the toes. The worst swelling is in the area of the great toe and the foot just adjacent to the great toe. Tender to palpation on the plantar aspect over the first MTP and just proximal to the first MTP. Normal capillary refill. Patient reports decreased sensation to light touch. No obvious skin break. Mildly warm to touch. No streaking. Neurological: Positive: Alert Psychological: Positive: Age Appropriate Behavior Skin: Positive: Other - No obvious skin break. Mildly warm to touch. No streaking. Lower Extremity Course/Dx - Course Course Of Treatment: Patient Name: NAHOMI SANFORD Medical Record#: [id number] Ordering Physician: Emiliano Teixeira MD Acct.#: [id number] : 1970 Age: 48 Sex: F Location: [facility] Exam Date: 07/16/191638 ADM Status: REG ER Order Information: FOOT RIGHT 3+ VWS Accession Number: [id number] CPT: 53172 HISTORY: PAIN/SWELLING DISTAL FOOT,WORST AT 1ST MTP . COMPARISONS: None relevant available at the time of dictation. VIEWS: 3, Frontal, lateral, and oblique views of the right foot FINDINGS: BONE DENSITY: Normal. BONES: There is no displaced fracture. There are posterior and plantar calcaneal enthesophytes. JOINTS: There is no arthropathy. ALIGNMENT: There is no dislocation. SOFT TISSUES: There is soft tissue swelling centered at the MTP joint. OTHER FINDINGS: None. IMPRESSION: SOFT TISSUE SWELLING. NO ACUTE OSSEOUS INJURY. IF SYMPTOMS PERSIST, RECOMMEND REPEAT IMAGING. <Electronically signed by Delon Sullivan MD in OV> 07/16/19 6251 Discussed the x-rays with the patient. Clinically I believe the patient has plantar fasciitis. A uric acid level was drawn. On examination the foot is only tender to palpation on the plantar aspect. The first MTP is nontender on the dorsum. At this time does not appear to be any kind of infection. We discussed using a postop shoe and arch supports. Patient declined the postop shoe but she plans on getting arch supports for all her shoes. Also recommended no peripheral walking. Sclerae to ice and elevate the area and also take ibuprofen. Follow-up with sports medicine or orthopedics if not completely improved. - Differential Dx/Diagnosis Provider Diagnosis: Right foot pain Discharge - Sign-Out/Discharge Documenting (check all that apply): Patient Departure All imaging exams completed and their final reports reviewed: Yes - Discharge Plan Condition: Stable Disposition: HOME Patient Education Materials: Plantar Fasciitis Exercises (GEN), Plantar Fasciitis (ED), Gout (ED) Referrals: Marci Deluna MD [Primary Care Provider] - [facility] [Provider Group] Yousuf Barrow MD [Medical Doctor] - Additional Instructions: FOLLOW UP WITH SPORTS MEDICINE OR ORTHOPEDICS IF NOT COMPLETELY IMPROVED. GET REEVALUATED SOONER IF WORSE OR ANY QUESTIONS OR CONCERNS. - Billing Disposition and Condition Condition: STABLE Disposition: Home
== END 2019-07-16 17:41 | disposition home or self-care (01) ==
LOC: UCCORT 16:08
DX: M79.671 Pain in right foot (principal)
CPT/HCPCS: 36415; 84550; 99211; G0463

== ENCOUNTER 2019-10-31 17:21 | Emergency (ER) | payer BC ==
--- OUTSIDE RECORDS SUMMARY | 2019-10-31 17:45 | XMS REPORT | Continuity of Care Document ---
:1970 External Reference #:[id number] Author Name RUTH Quintana Address [address] [place] [id number] Care Team Providers Name Role Phone Margie Deluna Care Team Information General Warehouse Associate [phone] Problems Active Problems Provider Date Mixed urinary incontinence Jennifer Madison NP Onset: 04/03/2013 FH: Cardiovascular disease Swetha Mtz MD Onset: 04/26/2012 Cyst of right ovary Michael Vogt M.D. Onset: 06/14/2019 Social History Type Date Description Comments Sex Unknown Tobacco Use Start: Unknown Patient has never smoked Smoking Status Reviewed: 03/06/19 Patient has never smoked Allergies, Adverse Reactions, Alerts Active Allergies Reaction Severity Comments Date Penicillin 08/20/2006 Medications Active Medications SIG Qnty Indications Ordering Provider Date Advil as needed Unknown 200mg Capsules Medications Administered in Office Medication SIG Qnty Indications Ordering Provider Date PT SCRN Tbco Id as Non User Gabrielle Shirley MD 05/30/2019 Injection PT SCRN Tbco Id as Non User Evelia Ramirez MD 03/06/2019 Injection Doc Med RSN No Tbco SCRN Gabrielle Shirley MD 01/10/2019 Injection PT SCRN Tbco Id as Non User Gabrielle Shirley MD 01/10/2019 Injection PT SCRN Tbco Id as Non User Gabrielle Shirley MD 01/03/2019 Injection PT SCRN Tbco Id as Non User Gabrielle Shirley MD 06/24/2018 Injection PT SCRN Tbco Id as Non User Gabrielle Shirley MD 03/03/2018 Injection Immunizations CPT Code Status Date Vaccine Lot # [id number] Given 08/26/2016 Influenza Vaccine Not Specified Administered Age 3 And Older [id number] Given 09/06/2013 Influenza Virus Vaccine Split Virus Use For Individual 3Yr Older 00368 Given 04/26/2012 Tetnus, Diptheria Toxoids And Acellular Pertussis, PT > 7Yrs Old 03481 Given 12/03/2009 Administration H1N1 Vaccine 53673 Given 08/08/2009 Influenza Virus Vaccine 3Years Or Older 05567 Given 10/18/2006 Influenza Virus Vaccine 3Years Or Older Vital Signs Date Vital Result Comment 09/05/2019 10:20am BP Systolic 118 mmHg BP Diastolic 78 mmHg Body Temperature 97.9 F Height 66 inches 5'6" Weight 251.00 lb BMI (Body Mass Index) 40.5 kg/m2 5 Parity 4 05/30/2019 8:50am BP Systolic 126 mmHg BP Diastolic 72 mmHg Height 66 inches 5'6" Weight 258.00 lb BMI (Body Mass Index) 41.6 kg/m2 Last Menstrual Period [id number] 5 Parity 4 Results Test Date Facility Test Result H/L Range Note Laboratory test 09/05/2019 [facility] Gardnerella/Yea <pending> [place] [address] st: Vaginal Dna [phone] Laboratory test 05/30/2019 [facility] Cytology SEE RESULT 1 [place] [address] BELOW [phone] 1 SEE RESULT BELOW Name: NYLA SANFORD : [address]: Gabrielle Shirley MD Acct: [id number] Unit: [id number] AGE: 48 Location: [facility] Re05/30/19 SEX: F Status: REG REF SPEC: [id number] DUC: 05/30/19-0950 [facility] DR: Gabrielle Shirley MD REQ: [id number] RECD: 05/30/19-1210 STATUS: NERISSA BENITEZ DR: Marci Deluna MD _ ORDERED: TP IMAGE ANALYS, HPV/Thin Prep COMMENTS: [id number] Negative for Intraepithelial lesion or Malignancy Date [...] by and Reported on: JOSE R Trujillo(ASCP) [id number] This Pap test was evaluated with the assistance of the ThinPrep Test Imaging System. Due to cytologic findings at the blanket cutting machine operator microscope, comprehensive manual rescreening by a Tooling Engineering Tech may be required. The Pap Smear is [...] years. END OF REPORT DEPARTMENT OF PATHOLOGY, [address] [place] [address] Zachary Hammond M.D. 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
--- OUTSIDE RECORDS SUMMARY | 2019-10-31 17:45 | XMS REPORT | Continuity of Care Document ---
:1970 External Reference #:[id number] Author Name Marci Deluna M.D. (transmitted by agent of provider Ora Irvin) Address [address], [place] [address] Care Team Providers Name Role Phone Swetha Mtz MD - Internal Medicine Care Team Information Lap Polisher Julio Cesar Brito MD - Otolaryngology Care Team Information Lap Polisher [phone] Marci Deluna MD - Internal Care Team Information Lap Polisher Medicine Gabrielle Shirley MD - Obstetrics & Care Team Information Lap Polisher [phone] Gynecology Morelia Moody MD - Internal Care Team Information Lap Polisher [phone] Medicine Problems Active Problems Provider Date FH: Cardiovascular disease Swetha Mtz M.D. Onset: 04/26/2012 Social History Type Date Description Comments Sex Unknown ETOH Use Denies alcohol use Tobacco Use Start: Unknown Patient has never smoked Recreational Drug Use Denies Drug Use Smoking Status Reviewed: 10/06/19 Patient has never smoked Allergies, Adverse Reactions, Alerts Active Allergies Reaction Severity Comments Date Penicillin rash 04/26/2012 Macrobid SOB and hard to swallow Severe 09/26/2018 Medications Active Medications SIG Qnty Indications Ordering Provider Date Advil as needed Unknown 200mg Capsules History Medications Doxycycline Hyclate 1 tab by mouth 20tabs N39.0 Dominick Wright NP 08/09/2019 - 100mg twice a day 08/23/2019 Tablets for 10 days Doxycycline Hyclate 1 tab by mouth 14tabs N39.0 Marci Deluna, 2018 - 100mg twice a day M.D. 08/07/2019 Tablets for 7 days Sulfamethoxazole/Trime one by mouth 14tabs N39.0 Camilla Estrada, 2018 - thoprim DS twice a day N.P. 07/14/2019 800-160mg for 7 days Tablets Metronidazole 1 tab by mouth 21tabs R10.32 Galilea Jayleen, 06/11/2019 - 500mg three times a M.D. 06/18/2019 Tablets day x 1 week Levofloxacin 1 by mouth 7tabs R10.32 Galilea Clemens, 06/11/2019 - 500mg every day for M.D. 07/09/2019 Tablets a week Levofloxacin 1 by mouth 7tabs R10.32 Marci Cotton, 04/28/2019 - 500mg every day for M.D. 05/05/2019 Tablets a week Metronidazole 1 tab by mouth 21tabs R10.32 Marci Cotton, 04/28/2019 - 500mg three times a M.D. 05/05/2019 Tablets day x 1 week Immunizations CPT Code Status Date Vaccine Lot # [id number] Given 09/16/2018 Influenza Virus Vaccine, Quadrivalent, Split, [id number] Preservative Free [id number] Given 08/26/2016 Flu Vaccine NOS 89185 Given 09/06/2013 Flu Vaccine Split Virus Preservative Free For [id number] Indiv 3Yr Older 52919 Given 04/26/2012 Tdap - Tetanus/Diptheria/Acellular Pertussis [id number] Vital Signs Date Vital Result Comment 10/06/2019 9:03am Height 66 inches 5'6" Weight 252.00 lb Heart Rate 105 /min BP Systolic 143 mmHg BP Diastolic 90 mmHg BP Systolic Sitting 139 mmHg recheck BP Diastolic Sitting 93 mmHg recheck O2 % BldC Oximetry 98 % BMI (Body Mass Index) 40.7 kg/m2 08/07/2019 4:40pm Height 66 inches 5'6" Weight 254.38 lb Heart Rate 92 /min BP Systolic 150 mmHg BP Diastolic 95 mmHg Body Temperature 98.1 F O2 % BldC Oximetry 97 % BMI (Body Mass Index) 41.1 kg/m2 Results Test Acquired Date Facility Test Result H/L Range Note Urinalysis Profile 08/25/2019 [facility] Urine Color Yellow [address] [place], [place] [id number] [phone] Urine Appearance Cloudy Urine Specific [place] 1.021 Normal 1.010-1.030 Urine pH 6.0 Normal 5-9 Urine Urobilinogen Negative Negative Urine Ketones Negative Negative Urine Protein Negative Negative Urine Leukocytes Trace Abnormal Negative Urine Blood 2+ Abnormal Negative Urine Nitrite Negative Negative Urine Bilirubin Negative Negative Urine Glucose Negative Negative Urine White Blood Cell Trace(0-5/hpf) Absent Urine Red Blood Cell 1+(3-5/hpf) Abnormal Absent Urine Bacteria Absent Absent Urine Squamous Epithelial Cell Present Abnormal Absent Urine Culture And 08/25/2019 [facility] Urine Culture SEE RESULT [address] [place] [address] [phone] Urine Culture And 08/07/2019 [facility] Urine Culture SEE RESULT [address] [place] [address] [phone] Ua Routine 08/07/2019 [facility] Ua Specific 1.030 [place] Ua PH 5 Ua Color dark yellow Ua Appera cloudy Ua WBC ++ Ua Protein trace Ua Glucose normal Ua Ketones negative Ua Bilirubin negative Ua Urobilinogen normal Ua Nitrite trace Ua Occult Blood about 250 Laboratory test 07/16/2019 [facility] Uric Acid 4.1 mg/dL Normal 2.3-6.6 3, [address] [place] [address] [phone] Urine Culture And 07/10/2019 [facility] Urine SEE [address] [place] [address] BELOW [phone] Ua Routine 07/10/2019 [facility] Ua Specific 1020 [place] Ua PH 5 Ua Color yellow Ua Appera cloudy Ua WBC positive Ua Protein negative Ua Glucose negative Ua Ketones negative Ua Bilirubin negative Ua Urobilinogen negative Ua Nitrite negative Ua Occult Blood about 250 Laboratory test 05/30/2019 [facility] Cytology SEE RESULT BELOW [address] [place] [address] [phone] 1 SEE RESULT BELOW Name: NAHOMI SANFORD : [address]: Marci Deluna MD Acct: [id number] Unit: [id number] AGE: 48 Location: [facility] Re08/25/19 SEX: F Status: REG REF SPEC: [id number] DUC: 08/25/19-[address] [facility] [address]: Marci Deluna MD REQ: [id number] RECD: 08/25/19 STATUS: COMP _ SOURCE: URINE SPDESC: ORDERED: Urine Culture COMMENTS: [id number] QUERIES: Urine Source: Random Procedure Result Reported Site Urine Culture Final 08/27/19- 0650 ML No growth of clinically significant organisms * ML - Main Lab . END OF REPORT DEPARTMENT OF PATHOLOGY, [address] [place] [address] Zachary Hammond M.D. Director [facility] # [id number] 2 SEE RESULT BELOW Name: NAHOMI SANFORD : [address]: Dominick Wright NP Acct: [id number] Unit: [id number] AGE: 48 Location: [facility] Re08/07/19 SEX: F Status: REG REF SPEC: [id number] DUC: 08/07/[address]: Dominick Wright NP REQ: [id number] RECD: 08/07/19 STATUS: COMP _ SOURCE: URINE SPDESC: ORDERED: Urine Culture COMMENTS: [id number] Urine Source: Random Procedure Result Reported Site Urine Culture Final 08/09/19- 0746 ML Organism 1 ESCHERICHIA COLI Martin Count 25-50,000 (Moderate) CFU/ML Organism 2 NORMAL QUINCY Martin Count 1-10,000 (Few) CFU/ML 1. ESCHERICHIA COLI M.I.C. RX --------- ------ Ampicillin 8 S Cefazolin <=4 S Cefepime <=1 S Ceftriaxone <=1 S Ciprofloxacin >=4 R Gentamicin <=1 S Levofloxacin >=8 R Meropenem <=0.25 S Nitrofurantoin <=16 S Tetracycline 2 S Pipercillin/Tazobactam <=4 S Trimethoprim/Sulfamethoxazole >=320 R Amoxicillin/Clavulanic Acid 4 S Aztreonam <=1 S Contact the Microbiology Department for any additional antibiotic reporting. * ML - Main Lab . END OF REPORT DEPARTMENT OF PATHOLOGY, [address] [place] [address] Zachary Hammond M.D. Director [facility] # [id number] 5 SEE RESULT BELOW Name: NAHOMI SANFORD : [address]: Camilla Estrada NP Acct: [id number] Unit: [id number] AGE: 48 Location: [facility] Re07/10/19 SEX: F Status: REG REF SPEC: [id number] DUC: 07/10/19-[address]: Camilla Estrada NP REQ: [id number] RECD: 07/10/19 STATUS: COMP _ SOURCE: URINE SPDESC: ORDERED: Urine Culture COMMENTS: [id number] Urine Source: Random Procedure Result Reported Site Urine Culture Final 07/12/19- 0813 ML Organism 1 ESCHERICHIA COLI Martin Count 50-75,000 (Many) CFU/ML 1. ESCHERICHIA COLI [...] Department for any additional antibiotic reporting. * ML - Main Lab . END OF REPORT DEPARTMENT OF PATHOLOGY, [address] [place] [address] Zachary Hammond M.D. Director [facility] # [id number] 6 SEE RESULT BELOW Name: NAHOMI SANFORD : [address]: Gabrielle Shirley MD Acct: [id number] Unit: [id number] AGE: 48 Location: [facility] Re05/30/19 SEX: F Status: REG REF SPEC: [id number] DUC: 05/30/19-[address] [facility] [address]: Gabrielle Shirley MD REQ: [id number] RECD: 05/30/19-1210 STATUS: NERISSA BENITEZ DR: Marci Deluna MD _ ORDERED: TP IMAGE ANALYS, HPV/Thin Prep COMMENTS: [id number] Negative for Intraepithelial lesion or Malignancy Date [...] by and Reported on: JOSE R Trujillo(ASCP) [id number] This Pap test was evaluated with the assistance of the ThinPrep Test Imaging System. Due to cytologic findings at the servicer travel trailers microscope, comprehensive manual rescreening by a Beauty Sales Advisor may be required. The Pap Smear is [...] years. END OF REPORT DEPARTMENT OF PATHOLOGY, [address] [place] [address] Zachary Hammond M.D. Director [facility] # [id number] Procedures Date Code Description Status 04/17/2019 [id number] Mammogram Completed 04/14/2018 [id number] Mammogram Completed 05/04/2017 [id number] Colonoscopy Completed 04/08/2017 [id number] Mammogram Completed 04/06/2016 88978403 Mammogram Completed 04/05/2015 82775916 Mammogram Completed 04/04/2014 [id number] Mammogram Completed 03/11/2012 18752491 Colonoscopy Completed Medical Devices Description No Information Available Encounters Type Date Location Provider Dx Diagnosis Office Visit 08/07/2019 [facility] Internal Dominick Wright NP R35.0 Frequency of 4:20p Medicine - Ccmob micturition R39.15 Urgency of urination R22.0 Localized swelling, mass and lump, head W21.09xA Struck by other hit or thrown ball, initial encounter Office Visit 07/14/2019 1:20p [facility] Internal Marci N39.0 Urinary tract Medicine - Tammie Deluna infection, site Ccmob not specified Office Visit 07/10/2019 10:40a [facility] Internal Camilla Estrada, N39.0 Urinary tract Medicine - N.P. infection, site Ccmob not specified K21.9 Gastro-esophageal reflux disease without esophagitis Office Visit 06/09/2019 3:00p [facility] Internal Marci R10.30 Lower abdominal Medicine - Mikie M.DElzbieta pain, unspecified Ccmob Office Visit 04/28/2019 4:00p [facility] Internal Marci R10.32 Left lower Medicine - Mikie MElzbietaD. quadrant pain Ccmob S50.362A Insect bite (nonvenomous) of left elbow, initial encounter Assessments Date Code Description Provider 10/06/2019 R35.0 Frequency of micturition Marci Deluna M.D. 10/06/2019 R53.81 Other malaise Marci Deluna M.D. 10/06/2019 F41.9 Anxiety disorder, unspecified Marci Deluna M.D. 08/07/2019 R35.0 Frequency of micturition Dominick Wright NP 08/07/2019 R39.15 Urgency of urination Dominick Wright NP 08/07/2019 R22.0 Localized swelling, mass and lump, head Dominick Wright NP 08/07/2019 W21.09xA Struck by other hit or thrown ball, Dominick Wright NP initial encounter 07/14/2019 N39.0 Urinary tract infection, site not Marci Deluna M.D. specified 07/10/2019 N39.0 Urinary tract infection, site not Camilla Anthonyn, N.P. specified 07/10/2019 K21.9 Gastro-esophageal reflux disease without Camilla Varn, N.P. esophagitis 06/09/2019 R10.30 Lower abdominal pain, unspecified Marci Deluna M.D. 04/28/2019 R10.32 Left lower quadrant pain Marci Deluna M.D. 04/28/2019 S50.362A Insect bite (nonvenomous) of left elbow, Marci Deluna M.D. initial encounter Plan of Treatment Future Appointment(s):11/21/2019 10:00 am - Marci Deluna M.D. at [facility] Internal Medicine - Ccmob10/06/2019 - Marci Deluna M.D.R35.0 Frequency of micturitionNew Therapy:Physical TherapyComments:Practice holding urinePelvic floor physical therapyFollow up:PE in spring. See me in late October for utuznntX94.81 Other malaiseNew Labs:Comp Metabolic Panel, Ordered: 10/06/19CBC Auto Diff, Ordered: 10/06/19TSH (Thyroid Stim Horm), Ordered: 10/06/19F41.9 Anxiety disorder, unspecifiedComments:Counseling is critical!Call HR about EAP - usually freeExercise: walk outside in the neighborhood, starting tomorrow (on the treadmill when icy and dark) Examine how you talk to your self - be kind! Functional Status Description No Information Available Mental Status Description No Information Available Referrals Description No Information Available
[2019-10-31 21:43] LABS: ABS Basophils 0.1 10^3/ul (0-0.2); ABS Eosinophils 0.1 10^3/ul (0-0.6); ABS Lymphocytes 2.2 10^3/ul (1.0-4.8); ABS Monocytes 0.7 10^3/ul (0-0.8); ABS Neutrophils 5.8 10^3/ul (1.5-7.7); Eosinophil % 0.9 %; Hematocrit 42 % (35-47); Hemoglobin 14.1 g/dL (12.0-16.0); Lymphocyte % 24.9 %; Mean Corpuscular HGB Conc 34 g/dL (31-36); Mean Corpuscular Hemoglobin 29 pg (27-31); Mean Corpuscular Volume 85 fL (80-97); Mean Platelet Volume 7.7 fL (7.4-10.4); Nucleated Red Blood Cells % 0.2; Platelet Count 249 10^3/uL (150-450); Red Blood Count 4.87 10^6 /uL (3.70-4.87); Red Cell Distribution Width 15 % (10-15); White Blood Count 8.8 10^3/uL (3.5-10.8)
[2019-10-31 22:04] LABS: ALT 13 U/L (7-52); AST 13 U/L (13-39); Alkaline Phosphatase 103 U/L (34-104); Anion Gap 9 mmol/L (2-11); BUN/Creatinine Ratio 18.2 (8-20); Blood Urea Nitrogen 16 mg/dL (6-24); CO2 Carbon Dioxide 26 mmol/L (22-32); Chloride 103 mmol/L (101-111); EGFR Non-African American 68.6 (>60); Glucose 93 mg/dL (70-100); Potassium 3.8 mmol/L (3.5-5.0); Sodium 138 mmol/L (135-145)
[2019-10-31 22:09] LABS: HCG Pregnancy 1.84 mIU/mL
--- NOTE | 2019-10-31 22:32 | ED ---
Abdominal Pain/Female - HPI Summary HPI Summary: Patient complains of intermittent lower abdominal pain 1 month, worse the past 4 days, worse with eating. History of diverticulitis. Sent from convenient care to ED for further evaluation. Also associated symptoms of mild nausea. Denies fever, cough, sore throat, CP, SOB, V/D, change in urine, change in BM, vaginal symptoms. Medical history is none. Abdominal surgical history includes right ovarian surgery. - History of Current Complaint Chief Complaint: EDAbdPain Stated Complaint: ABD PAIN PER PT Time Seen by Provider: 10/31/19 22:31 Hx Obtained From: Patient Hx Last Menstrual Period: [id number] Onset/Duration: Gradual Onset, Lasting Weeks Timing: Intermittent Episode Lasting Severity Initially: Moderate Severity Currently: Moderate Pain Intensity: 5 Pain Scale Used: 0-10 Numeric Location: Discrete At: RLQ, Discrete At: LLQ, Suprapubic Radiates: No Character: Dull Aggravating Factor(s): Nothing Alleviating Factor(s): Spontaneous Resolution Associated Signs and Symptoms: Positive: Negative Allergies/Adverse Reactions: Allergies Allergy/AdvReac Type Severity Reaction Status Date / Time nitrofurantoin Allergy Swelling Verified 10/31/19 17:33 [From Macrobid] Of Face,Lips,& Throat Penicillins Allergy Rash Verified 07/16/19 16:24 PMH/Surg Hx/FS Hx/Imm Hx Endocrine/Hematology History: Denies: Hx Diabetes, Hx Thyroid Disease Cardiovascular History: Reports: Hx Hypertension - BORDERLINE,being monitored- NO MEDICATION FOR Denies: Hx Congestive Heart Failure, Hx Deep Vein Thrombosis, Hx Myocardial Infarction, Hx Pacemaker/ICD Respiratory History: Denies: Hx Asthma, Hx Chronic Obstructive Pulmonary Disease (COPD) GI History: Reports: Hx Diverticulosis, Other GI Disorders - HX OF DIVERTICULITIS-LAST 1 MONTH AGO-REPORTS RECEIVED TREATMENT FOR Denies: Hx Ulcer History: Denies: Hx Dialysis Sensory History: Denies: Hx Contacts or Glasses, Hx Hearing Aid Opthamlomology History: Denies: Hx Contacts or Glasses EENT History: Denies: Hx Deafness Psychiatric History: Reports: Hx Anxiety - HX OF - NO MEDICATION FOR - Surgical History Surgery Procedure, Year, and Place: April 2017 Colonoscopy Hx Anesthesia Reactions: No - Immunization History Date of Tetanus Vaccine: unk Date of Influenza Vaccine: fall 2017 Infectious Disease History: No Infectious Disease History: Denies: Hx Hepatitis, Hx Human Immunodeficiency Virus (HIV), Traveled Outside the [place] in Last 30 Days - Family History Known Family History: Positive: Cardiac Disease, Hypertension Negative: Diabetes - Social History Alcohol Use: Rare Hx Substance Use: No Substance Use Type: Reports: None Hx Tobacco Use: No Smoking Status (MU): Never Smoked Tobacco Have You Smoked in the Last Year: No Review of Systems Constitutional: Negative Eyes: Negative ENT: Negative Cardiovascular: Negative Respiratory: Negative Positive: Abdominal Pain Genitourinary: Negative Musculoskeletal: Negative Skin: Negative Neurological: Negative Psychological: Normal All Other Systems Reviewed And Are Negative: Yes Physical Exam - Summary Physical Exam Summary: Tenderness in lower quadrants bilaterally. Abdominal exam otherwise unremarkable. Triage Information Reviewed: Yes Vital Signs On Initial Exam: Initial Vitals Temp Pulse Resp BP Pulse Ox 97.1 F 107 18 158/118 98 10/31/19 17:29 10/31/19 17:29 10/31/19 17:29 10/31/19 17:29 10/31/19 17:29 Vital Signs Reviewed: Yes Appearance: Positive: Well-Appearing Skin: Positive: Warm Head/Face: Positive: Normal Head/Face Inspection Eyes: Positive: Normal Neck: Positive: Supple Respiratory/Lung Sounds: Positive: Clear to Auscultation Cardiovascular: Positive: Normal Abdomen Description: Positive: Other: Musculoskeletal: Positive: Normal Neurological: Positive: Normal Psychiatric: Positive: Normal AVPU Assessment: Alert - [place] Coma Scale Best Eye Response: 4 - Spontaneous Best Motor Response: 6 - Obeys Commands Best Verbal Response: 5 - Oriented Coma Scale Total: 15 Procedures - Sedation Patient Received Moderate/Deep Sedation with Procedure: No Diagnostics - Vital Signs Vital Signs Temp Pulse Resp BP Pulse Ox 10/31/19 19:20 98.0 F 102 18 152/103 10/31/19 17:29 97.1 F 107 18 158/118 98 - Laboratory Lab Results: Lab Results 10/31/19 10/31/19 Range/Units 21:35 21:35 WBC 8.8 (3.5-10.8) 10^3/uL RBC 4.87 (3.70-4.87) 10^6 /uL Hgb 14.1 (12.0-16.0) g/dL Hct 42 (35-47) % MCV 85 (80-97) fL MCH 29 (27-31) pg MCHC 34 (31-36) g/dL RDW 15 (10-15) % Plt Count 249 (150-450) 10^3/uL MPV 7.7 (7.4-10.4) fL Neut % (Auto) 65.8 % Lymph % (Auto) 24.9 % [place] % (Auto) 7.6 % Eos % (Auto) 0.9 % Baso % (Auto) 0.8 % Absolute Neuts (auto) 5.8 (1.5-7.7) 10^3/ul Absolute Lymphs (auto) 2.2 (1.0-4.8) 10^3/ul Absolute Monos (auto) 0.7 (0-0.8) 10^3/ul Absolute Eos (auto) 0.1 (0-0.6) 10^3/ul Absolute Basos (auto) 0.1 (0-0.2) 10^3/ul Absolute Nucleated RBC 0.0 10^3/ul Nucleated RBC % 0.2 Sodium 138 (135-145) mmol/L Potassium 3.8 (3.5-5.0) mmol/L Chloride 103 (101-111) mmol/L Carbon Dioxide 26 (22-32) mmol/L Anion Gap 9 (2-11) mmol/L BUN 16 (6-24) mg/dL Creatinine 0.88 (0.51-0.95) mg/dL Est GFR ( Amer) 83.0 (>60) Est GFR (Non-Af Amer) 68.6 (>60) BUN/Creatinine Ratio 18.2 (8-20) Glucose 93 (70-100) mg/dL Calcium 10.0 (8.6-10.3) mg/dL Total Bilirubin 0.80 (0.2-1.0) mg/dL AST 13 (13-39) U/L ALT 13 (7-52) U/L Alkaline Phosphatase 103 (34-104) U/L Total Protein 8.0 (6.4-8.9) g/dL Albumin 4.0 (3.2-5.2) g/dL Globulin 4.0 (2-4) g/dL Albumin/Globulin Ratio 1.0 (1-3) Lipase < 10 L (11.0-82.0) U/L Beta HCG, Quant 1.84 mIU/mL Result Diagrams: 10/31/19 21:35 10/31/19 21:35 Lab Statement: Any lab studies that have been ordered have been reviewed, and results considered in the medical decision making process. Abdominal Pain Fem Course/Dx - Course Course Of Treatment: Patient complains of intermittent lower abdominal pain 1 month, worse the past 4 days, worse with eating. History of diverticulitis. Sent from convenient care to ED for further evaluation. Also associated symptoms of mild nausea. Denies fever, cough, sore throat, CP, SOB, V/D, change in urine, change in BM, vaginal symptoms. Medical history is none. Abdominal surgical history includes right ovarian surgery. Vital signs within normal limits. Labs unremarkable. CT abdomen and pelvis positive for diverticulitis and new ventral hernia. On reexam no ventral hernia noted. Rx for Cipro and Flagyl. Advised patient follow-up with surgery for further evaluation of ventral hernia. - Diagnoses Provider Diagnoses: Diverticulitis, Hernia of abdominal wall Discharge ED - Sign-Out/Discharge Documenting (check all that apply): Patient Departure - Discharge Plan Condition: Stable Disposition: HOME Prescriptions: Ciprofloxacin HCl [Cipro] 500 mg PO BID 10 Days #20 tablet metroNIDAZOLE [Flagyl 500 MG TAB] 500 mg PO TID 10 Days #30 tab Patient Education Materials: Diverticulitis (ED), Diverticulitis Diet (ED), Ventral Hernia (ED) Referrals: Marci Deluna MD [Primary Care Provider] - Luther Saldaña MD [Medical Doctor] - Additional Instructions: Take Flagyl and Cipro as directed for diverticulitis. Liquid diet and low fiber foods for 7 days. Follow-up with surgery Dr. Saldaña for further evaluation of ventral wall hernia and recurrent diverticulitis. Return to the ED for any new or worsening symptoms. - Billing Disposition and Condition Condition: STABLE Disposition: Home
[2019-10-31] MEDS ORDERED: Iohexol 300* (CONTRAST) 10 ML SDV IV ONE (23:13)
[2019-11-01] MEDS ORDERED: Ciprofloxacin TAB* 500 MG PO ONE (00:35)
[2019-11-01] MEDS ORDERED: metroNIDAZOLE TAB* 250 MG PO ONE (00:35)
[2019-11-01 01:24] LABS: Urine Appearance Clear; Urine Bilirubin Negative (Negative); Urine Blood 2+ (Negative); Urine Color Yellow; Urine Glucose Negative (Negative); Urine Ketones 1+ (Negative); Urine Nitrite Negative (Negative); Urine Protein Negative (Negative); Urine Specific Gravity > 1.060 (1.010-1.030); Urine Urobilinogen Negative (Negative)
[2019-11-01 01:36] LABS: Urine Bacteria Absent (Absent); Urine Red Blood Cell 2+(6-10/hpf) (Absent); Urine Squamous Epithelial Cell Present (Absent); Urine White Blood Cell 2+(11-20/hpf) (Absent)
[2019-11-01 01:52] VITALS: BP 154/79
== END 2019-11-01 01:51 | disposition home or self-care (01) ==
LOC: ED 17:21
DX: K57.32 Diverticulitis of large intestine without perforation or abscess without bleeding (principal); K43.9 Ventral hernia without obstruction or gangrene; K80.20 Calculus of gallbladder without cholecystitis without obstruction; R11.0 Nausea; I10 Essential (primary) hypertension; F41.9 Anxiety disorder, unspecified; Z98.890 Other specified postprocedural states; Z88.1 Allergy status to other antibiotic agents; Z88.0 Allergy status to penicillin
CPT/HCPCS: 36415; 74177; 80053; 81003; 81015; 83690; 84702; 85025; 87077; 87086; 87186; 99283; A9270-GY; Q9967